=== PATIENT | male | born 1945 | race Caucasian/White ===

== ENCOUNTER 2021-09-10 17:12 | Emergency (ER) | payer OTHER ==
[~2021-09-10] VITALS: Ht 180.3 cm; Wt 81.0 kg
[2021-09-10 20:23] VITALS: BP 133/67
== END 2021-09-10 20:37 | disposition home or self-care (01) ==
LOC: ER 17:12
DX: S52.502A Unspecified fracture of the lower end of left radius, initial encounter for closed fracture (principal); I10 Essential (primary) hypertension; W01.0XXA Fall on same level from slipping, tripping and stumbling without subsequent striking against object, initial encounter; Y93.89 Activity, other specified; Y92.89 Other specified places as the place of occurrence of the external cause; Y99.8 Other external cause status
CPT/HCPCS: 29125; 73090

== ENCOUNTER 2022-04-30 12:33 | Inpatient (IN) | payer OTHER ==
[~2022-04-30] VITALS: Ht 180.3 cm; Wt 84.0 kg
[2022-04-30] MEDS ORDERED: HYDROmorphone HCL 2 MG/ML VL/or syr IM ONE (12:45)
[2022-04-30 13:29] LABS: Albumin 3.2 g/dL (3.4-5.0); Calcium 8.4 mg/dL (8.5-10.1); Potassium 3.3 mmol/L (3.5-5.1)
[2022-04-30 13:32] LABS: BUN/Creatinine Ratio 24.2; Bilirubin, Total 1.2 mg/dL (0.2-1.0); Total Protein 6.4 g/dL (6.4-8.2)
[2022-04-30 13:44] LABS: Basophils # (auto) 0 10 ^3/uL (0-0.2); Eosinophils # (auto) 0 10 ^3/uL (0-0.8); Eosinophils % (auto) 0.1 % (0.0-7.0); Hematocrit 36.9 % (41.0-53.0); Hemoglobin 13.1 g/dL (13.5-17.5); Lymphocytes # (auto) 0.4 10 ^3/uL (0.4-5.4); Lymphocytes % (auto) 6.6 % (10.0-50.0); Mean Corpuscular Hemoglobin 30.1 pg (28.0-32.0); Mean Corpuscular Hgb Conc. 35.4 g/dL (32.0-36.0); Mean Corpuscular Volume 84.9 fL (80.0-100.0); Monocytes # (auto) 0.3 10 ^3/uL (0-1.3); Monocytes % (auto) 4.6 % (0.0-12.0); Neutrophils # (auto) 5.5 10 ^3/uL (1.6-8.6); Neutrophils % (auto) 88.7 % (37.0-80.0); Nucleated Red Blood Cells % 0.1 %; Red Blood Cells 4.34 10^6/uL (4.5-5.90); Red Cell Distribution Width 16.2 % (11.8-14.3); White Blood Cell 6.2 10^3/uL (4.4-10.8)
[2022-04-30] MEDS ORDERED: SODIUM CHLORIDE 0.9% 1,000 ML IV ONE (14:00)
[2022-04-30 14:24] LABS: Urine Bacteria NONE SEEN /hpf (None Seen); Urine Blood Negative /uL (Negative); Urine Mucus FEW (None Seen); Urine Specific Gravity 1.024 (1.001-1.035); Urine WBC 5 /hpf (0 - 3)
[2022-04-30] MEDS: POTASSIUM CHL 20MEQ/100ML 100 ML IV SCH ×2 (14:30→16:28)
[2022-04-30] MEDS ORDERED: SODIUM CHL 3% 500 ML IV ONE ×2 (14:45)
[2022-04-30] MEDS ORDERED: NITROGLYCERIN 0.4 MG SL TAB SL PRN (14:45)
[2022-04-30] MEDS ORDERED: MORPHINE SULFATE INJ 2 MG/ml SYRG IV PRN (14:45)
[2022-04-30] MEDS ORDERED: HYDROcodone-ACET 10/325MG TAB PO PRN (14:45)
[2022-04-30] MEDS ORDERED: hydrALAZINE HCL 20 MG/ML VL IV PRN (14:45)
[2022-04-30] MEDS ORDERED: SODIUM CHL 3% IV ONE ×2 (15:30→23:30)
[2022-04-30 17:48] LABS: Protein, Urine 38.2 mg/dL (0.0-11.9)
[2022-04-30 17:49] LABS: Magnesium 1.4 mg/dL (1.6-2.6)
[2022-04-30 17:53] LABS: Phosphorus 2.5 mg/dL (2.5-4.90)
[2022-04-30] MEDS ORDERED: ONDANSETRON HCL 4 MG/2 ML VIAL IV ONE (18:00)
[2022-04-30 19:01] LABS: BUN/Creatinine Ratio 35.1; Calcium 8.2 mg/dL (8.5-10.1); Potassium 3.6 mmol/L (3.5-5.1)
[2022-04-30 22:52] LABS: BUN/Creatinine Ratio 34.5; Calcium 8.4 mg/dL (8.5-10.1); Potassium 3.6 mmol/L (3.5-5.1)
[2022-04-30] MEDS ORDERED: SODIUM CHLORIDE 0.9% 1,000 ML IV SCH (23:30)
[2022-05-01 02:51] LABS: BUN/Creatinine Ratio 35.8; Calcium 8.4 mg/dL (8.5-10.1); Potassium 3.2 mmol/L (3.5-5.1)
[2022-05-01] MEDS ORDERED: ONDANSETRON HCL 4 MG/2 ML VIAL IV ONE (04:40)
[2022-05-01] MEDS ORDERED: fentaNYL CITRATE 100 MCG/2 ML VL IV ONE (04:40)
[2022-05-01] MEDS ORDERED: ADENOSINE 6 MG/2 ML INJ IV ONE ×3 (04:41→06:15)
[2022-05-01] MEDS ORDERED: MIDAZOLAM HCL 5 MG/ML-1ML VIAL ONE (04:58)
[2022-05-01] MEDS ORDERED: HEPARIN SODIUM (PORCINE) 5000 UNITS/ML 1ML VIAL ONE (04:59)
[2022-05-01] MEDS ORDERED: dilTIAZem 25 MG/5 ML VIAL IV ONE ×3 (05:18→06:15)
[2022-05-01] MEDS ORDERED: dilTIAZem 125mg/125ml BAG KIT 125 ML IV ONE (05:24)
[2022-05-01] MEDS ORDERED: dilTIAZem 125mg/125ml BAG KIT 100 ML IV SCH (06:00)
[2022-05-01 06:08] LABS: Basophils # (auto) 0 10 ^3/uL (0-0.2); Basophils % (auto) 0.2 % (0.0-2.0); Eosinophils # (auto) 0 10 ^3/uL (0-0.8); Eosinophils % (auto) 0.1 % (0.0-7.0); Hematocrit 32.8 % (41.0-53.0); Hemoglobin 11.5 g/dL (13.5-17.5); Lymphocytes # (auto) 0.3 10 ^3/uL (0.4-5.4); Lymphocytes % (auto) 3.4 % (10.0-50.0); Mean Corpuscular Hemoglobin 30.3 pg (28.0-32.0); Mean Corpuscular Hgb Conc. 35.2 g/dL (32.0-36.0); Monocytes # (auto) 0.5 10 ^3/uL (0-1.3); Monocytes % (auto) 5.5 % (0.0-12.0); Neutrophils # (auto) 7.5 10 ^3/uL (1.6-8.6); Neutrophils % (auto) 90.8 % (37.0-80.0); Nucleated Red Blood Cells % 0.1 %; Red Blood Cells 3.81 10^6/uL (4.5-5.90); Red Cell Distribution Width 15.8 % (11.8-14.3); White Blood Cell 8.3 10^3/uL (4.4-10.8)
[2022-05-01] MEDS ORDERED: HEPARIN SODIUM (PORCINE) 5000 UNITS/ML 1ML VIAL IV ONE (06:15)
[2022-05-01] MEDS ORDERED: MIDAZOLAM HCL 5 MG/ML-1ML VIAL IV ONE (06:15)
[2022-05-01] MEDS ORDERED: POTASSIUM CHL 20MEQ/100ML 100 ML IV ONE (06:15)
[2022-05-01] MEDS ORDERED: POTASSIUM CHL 20 Meq TABLET PO ONE (06:15)
[2022-05-01 06:16] LABS: Calcium 7.8 mg/dL (8.5-10.1)
[2022-05-01 06:18] LABS: BUN/Creatinine Ratio 40.5; Potassium 2.7 mmol/L (3.5-5.1)
[2022-05-01] MEDS ORDERED: AMIODARONE HCL 150 MG in D5W 5% 100 ML IV ONE ×2 (06:45→08:45)
[2022-05-01] MEDS ORDERED: AMIODARONE HCL (50 MG/ ML) 3 ML VIAL IV ONE (06:51)
[2022-05-01] MEDS ORDERED: AMIODARONE 450mg/250ml AE 250 ML IV SCH ×2 (07:00→13:00)
[2022-05-01] MEDS ORDERED: MAGNESIUM SULF 50% 40 MEQ/10 ML VL IV PRN (08:15)
[2022-05-01] MEDS ORDERED: ONDANSETRON HCL 4 MG/2 ML VIAL IV PRN (08:30)
[2022-05-01] MEDS ORDERED: SODIUM CHLORIDE 0.9% 1,000 ML IV SCH (08:45)
[2022-05-01] MEDS ORDERED: SOD CHL 0.9%/ KCL 40MEQ 1,000 ML IV SCH (10:00)
[2022-05-01 10:28] LABS: Calcium 7.8 mg/dL (8.5-10.1); Potassium 3.2 mmol/L (3.5-5.1)
[2022-05-01 10:30] LABS: BUN/Creatinine Ratio 37.5
[2022-05-01] MEDS ORDERED: AMIODARONE HCL 200 MG TAB PO ONE (11:15)
[2022-05-01] MEDS: ENOXAPARIN SOD 80 MG/0.8ML SYRINGE SC SCH ×2 (11:47→22:55)
[2022-05-01] MEDS ORDERED: AMIO200T4 PO (13:44)
[2022-05-01] MEDS ORDERED: APIX5TAB PO (13:44)
[2022-05-01] MEDS: AMIODARONE HCL 200 MG TAB PO SCH ×2 (14:15→22:54)
[2022-05-01 15:19] LABS: Calcium 7.7 mg/dL (8.5-10.1); Potassium 3.6 mmol/L (3.5-5.1)
[2022-05-01 15:21] LABS: BUN/Creatinine Ratio 26.9
[2022-05-01] MEDS ORDERED: PROCHLORPERAZINE EDISYLATE 5 MG/ML 2ML VIAL IV PRN (15:45)
[2022-05-01] MEDS: SOD CHL 0.9%/ KCL 40MEQ 1,000 ML IV SCH ×2 (16:27→20:27)
[2022-05-01 19:09] LABS: BUN/Creatinine Ratio 28.6; Calcium 7.6 mg/dL (8.5-10.1); Potassium 3.7 mmol/L (3.5-5.1)
[2022-05-01] MEDS ORDERED: AMIODARONE HCL 200 MG TAB PO SCH (22:00)
[2022-05-01 22:28] VITALS: BP 146/90
[2022-05-01] MEDS ORDERED: LISI40TA11 PO (22:52)
[2022-05-01] MEDS ORDERED: ATEN50TA19 PO (22:52)
[2022-05-01 23:56] LABS: BUN/Creatinine Ratio 27.5; Potassium 4.1 mmol/L (3.5-5.1)
[2022-05-02] MEDS ORDERED: DIGOXIN (250MCG/ML) 2 ML AMPULE ONE (04:53)
[2022-05-02 05:00] VITALS: BP 119/66
[2022-05-02] MEDS ORDERED: DIGOXIN (250MCG/ML) 2 ML AMPULE IV ONE (05:00)
[2022-05-02] MEDS ORDERED: CARVEDILOL 3.125 MG TAB PO ONE (05:45)
[2022-05-02] MEDS ORDERED: dilTIAZem 25 MG/5 ML VIAL IV ONE (06:45)
[2022-05-02] MEDS ORDERED: AMIODARONE HCL 150 MG in D5W 5% 100 ML IV ONE ×2 (07:30→08:00)
[2022-05-02 08:00] VITALS: BP 120/83
[2022-05-02] MEDS: SOD CHL 0.9%/ KCL 40MEQ 1,000 ML IV SCH ×2 (08:00→15:05)
[2022-05-02] MEDS ORDERED: AMIODARONE 450mg/250ml AE 250 ML IV SCH (08:15)
[2022-05-02 08:35] VITALS: BP 131/80
[2022-05-02] MEDS: AMIODARONE HCL 200 MG TAB PO SCH ×2 (09:21→22:31)
[2022-05-02] MEDS: ENOXAPARIN SOD 80 MG/0.8ML SYRINGE SC SCH ×2 (09:22→22:27)
[2022-05-02] MEDS: CARVEDILOL 3.125 MG TAB PO SCH ×2 (09:22→22:31)
[2022-05-02 11:57] LABS: BUN/Creatinine Ratio 29.8 (10.0-20.0); Calcium 7.9 mg/dL (8.5-10.1); Potassium 4.5 mmol/L (3.5-5.1)
[2022-05-02 13:19] VITALS: BP 15/90
[2022-05-02] MEDS: AMIODARONE 450mg/250ml AE 250 ML IV SCH (15:05)
[2022-05-02 17:20] VITALS: BP 150/83
[2022-05-02 22:18] VITALS: BP 145/70
[2022-05-03] MEDS ORDERED: AMIODARONE HCL 200 MG TAB PO ONE
[2022-05-03] MEDS: AMIODARONE 450mg/250ml AE 250 ML IV SCH (02:16)
[2022-05-03 04:39] VITALS: BP 131/75
[2022-05-03 08:00] VITALS: BP 124/90
[2022-05-03 09:06] VITALS: BP 124/90
[2022-05-03] MEDS: AMIODARONE HCL 200 MG TAB PO SCH (09:39)
[2022-05-03] MEDS: CARVEDILOL 3.125 MG TAB PO SCH (09:40)
[2022-05-03] MEDS: ENOXAPARIN SOD 80 MG/0.8ML SYRINGE SC SCH (09:40)
[2022-05-03 12:32] VITALS: BP 127/81
== END 2022-05-03 13:11 | disposition home health service (06) | DRG 641 ==
LOC: ER 12:33 → TELE 14:33 → TELE-CENTR 05-01 22:10
PROVIDERS: ADMIT Internal Medicine; ATTEND Internal Medicine
DX: E87.1 Hypo-osmolality and hyponatremia (principal); I47.1 Supraventricular tachycardia; C20 Malignant neoplasm of rectum; E86.0 Dehydration; E87.6 Hypokalemia; Z20.822 Contact with and (suspected) exposure to COVID-19; R19.7 Diarrhea, unspecified; I10 Essential (primary) hypertension; I48.91 Unspecified atrial fibrillation; Z85.048 Personal history of other malignant neoplasm of rectum, rectosigmoid junction, and anus; Z92.21 Personal history of antineoplastic chemotherapy
CPT/HCPCS: 36415; 74176; 80048; 80053; 81001; 82570; 83690; 83735; 83935; 83970; 84100; 84156; 84300; 85025; 87426; 93005; 93306; 96361; 96372; 96374; 99291; G0378; J0153; J2250; J2405; J3480; J7060

== ENCOUNTER 2022-10-24 08:03 | Emergency (ER) | payer OTHER ==
[~2022-10-24] VITALS: Ht 180.3 cm; Wt 81.8 kg
[~2022-10-24 08:03] MED LIST: AMIO200T13 PO; APIX5TAB PO; ATEN50TA19 PO; LISI40TA16 PO
[2022-10-24 08:40] LABS: Basophils # (auto) 0 10 ^3/uL (0-0.2); Basophils % (auto) 0.3 % (0.0-2.0); Eosinophils # (auto) 0 10 ^3/uL (0-0.8); Eosinophils % (auto) 0.7 % (0.0-7.0); Hematocrit 29.6 % (41.0-53.0); Hemoglobin 9.2 g/dL (13.5-17.5); Lymphocytes # (auto) 0.4 10 ^3/uL (0.4-5.4); Lymphocytes % (auto) 11.5 % (10.0-50.0); Mean Corpuscular Hemoglobin 27.2 pg (28.0-32.0); Mean Corpuscular Hgb Conc. 31.2 g/dL (32.0-36.0); Mean Corpuscular Volume 87.1 fL (80.0-100.0); Monocytes # (auto) 0.4 10 ^3/uL (0-1.3); Monocytes % (auto) 10.3 % (0.0-12.0); Neutrophils # (auto) 2.7 10 ^3/uL (1.6-8.6); Neutrophils % (auto) 77.2 % (37.0-80.0); Nucleated Red Blood Cells % 0.1 %; Red Cell Distribution Width 16.1 % (11.8-14.3); White Blood Cell 3.5 10^3/uL (4.4-10.8)
[2022-10-24 08:56] LABS: Alanine Aminotransferase 14 U/L (7-40); Albumin 3.6 g/dL (3.2-4.8); Alkaline Phosphatase 75 U/L (46-116); Anion Gap 7.5 (5-15); Aspartate Aminotransferase 16 U/L (13-40); BUN/Creatinine Ratio 15.1 (10.0-20.0); Bilirubin, Total 0.5 mg/dL (0.2-1.0); Blood Urea Nitrogen 11 mg/dL (9-23); Calcium 8.6 mg/dL (8.5-10.1); Carbon Dioxide 24.5 mmol/L (20-30); Chloride 110 mmol/L (98-107); Glucose 119 mg/dL (74-106); Potassium 3.6 mmol/L (3.5-5.1); Sodium 142 mmol/L (136-145)
[2022-10-24 08:57] LABS: Total Protein 5.5 g/dL (5.7-8.2)
[2022-10-24 09:01] LABS: INR 1.14 (0.9-1.15); Partial Thromboplastin Time 31.9 SEC (24.5-34.5); Prothrombin Time 11.9 sec (9.3-11.8)
[2022-10-24 11:06] LABS: Urine Bacteria NONE SEEN /hpf (None Seen); Urine Blood Negative /uL (Negative); Urine Clarity Clear (Clear); Urine Color Yellow (Yellow); Urine Hyaline Cast FEW /lpf (0 - 2); Urine Mucus FEW (None Seen); Urine Protein, UAD TRACE (Negative); Urine Specific Gravity 1.024 (1.001-1.035); Urine Urobilinogen Normal (Negative); Urine WBC 2 /hpf (0 - 3)
[2022-10-24] MEDS ORDERED: metroNIDAZOLE 500 MG TAB PO ONE (12:30)
[2022-10-24] MEDS ORDERED: SODIUM CHLORIDE 0.9% 1,000 ML IV ONE ×2 (12:30)
[2022-10-24] MEDS ORDERED: CIPROFLOXACIN HCL 500 MG TAB PO ONE (12:30)
[2022-10-24 13:34] LABS: INR 1.09 (0.9-1.15); Partial Thromboplastin Time 31.6 SEC (24.5-34.5); Prothrombin Time 11.4 sec (9.3-11.8)
[2022-10-24] MEDS ORDERED: FERR325T20 PO ×2 (14:31→14:32)
[2022-10-24] MEDS ORDERED: CIPR-173 PO (14:36)
[2022-10-24] MEDS ORDERED: MET500T PO (14:36)
[2022-10-24 15:39] VITALS: BP 129/94; PULSE 88; RESP 16; TEMP 98.1; O2SAT 97
== END 2022-10-24 15:42 | disposition home or self-care (01) ==
LOC: ER 08:03
DX: K62.5 Hemorrhage of anus and rectum (principal); I10 Essential (primary) hypertension; Z85.048 Personal history of other malignant neoplasm of rectum, rectosigmoid junction, and anus; Z79.899 Other long term (current) drug therapy
CPT/HCPCS: 36415; 71045; 74176; 80053; 81001; 82962; 84484; 85025; 85610; 85730; 96360; 96361; 99284; J7030

== ENCOUNTER 2023-09-13 07:55 | Emergency (ER) | payer OTHER ==
[~2023-09-13] VITALS: Ht 180.3 cm; Wt 76.0 kg
[~2023-09-13 07:55] MED LIST changes: +CIPR-173 PO; +FERR325T20 PO; +MET500T PO
[2023-09-13 08:15] VITALS: PULSE 84; RESP 19; O2SAT 96
[2023-09-13] MEDS: ONDANSETRON HCL 4 MG/2 ML VIAL IV ONE (08:48)
[2023-09-13 08:52] VITALS: TEMP 98.7
[2023-09-13 08:56] LABS: Basophils # (auto) 0 10 ^3/uL (0-0.2); Basophils % (auto) 0.3 % (0.0-2.0); Eosinophils # (auto) 0 10 ^3/uL (0-0.8); Eosinophils % (auto) 0.6 % (0.0-7.0); Hematocrit 42.7 % (41.0-53.0); Hemoglobin 14.5 g/dL (13.5-17.5); Lymphocytes # (auto) 0.8 10 ^3/uL (0.4-5.4); Lymphocytes % (auto) 11.3 % (10.0-50.0); Mean Corpuscular Hemoglobin 29.6 pg (28.0-32.0); Mean Corpuscular Hgb Conc. 33.9 g/dL (32.0-36.0); Mean Corpuscular Volume 87.3 fL (80.0-100.0); Monocytes # (auto) 0.4 10 ^3/uL (0-1.3); Monocytes % (auto) 5.6 % (0.0-12.0); Neutrophils # (auto) 5.9 10 ^3/uL (1.6-8.6); Neutrophils % (auto) 82.2 % (37.0-80.0); Nucleated Red Blood Cells % 0.1 %; Red Blood Cells 4.89 10^6/uL (4.5-5.90); Red Cell Distribution Width 15.4 % (11.8-14.3); White Blood Cell 7.1 10^3/uL (4.4-10.8)
[2023-09-13 09:16] LABS: Alanine Aminotransferase 69 U/L (7-40); Albumin 4.5 g/dL (3.2-4.8); Alkaline Phosphatase 78 U/L (46-116); Anion Gap 9 (5-15); Aspartate Aminotransferase 39 U/L (13-40); Blood Urea Nitrogen 12 mg/dL (9-23); Calcium 9.7 mg/dL (8.7-10.4); Carbon Dioxide 25 mmol/L (20-30); Chloride 104 mmol/L (98-107); Glucose 157 mg/dL (74-106); Lipase 36 U/L (12-53); Sodium 138 mmol/L (136-145); Total Protein 6.8 g/dL (5.7-8.2)
[2023-09-13 09:22] LABS: Urine Bacteria None Seen /hpf (None Seen); Urine WBC None Seen /hpf (0 - 3)
[2023-09-13 09:27] LABS: Urine Blood Negative /uL (Negative); Urine Clarity Clear (Clear); Urine Color Light-Yellow (Yellow); Urine Protein, UAD Negative (Negative); Urine Specific Gravity 1.012 (1.001-1.035); Urine Urobilinogen Normal (Negative); Urine pH 6.5 (5.0-9.0)
[2023-09-13] MEDS: SODIUM CHLORIDE 0.9% 1,000 ML IV ONE (10:30)
[2023-09-13 10:55] VITALS: PULSE 90; RESP 18; O2SAT 95
[2023-09-13] MEDS: POLYETHYLENE GLYCOL 17 GM PWDR PO ONE (11:40)
[2023-09-13] MEDS ORDERED: POLY335015 PO (13:14)
[2023-09-13 13:24] VITALS: BP 129/88; PULSE 98; RESP 18; O2SAT 94
== END 2023-09-13 14:16 | disposition home or self-care (01) ==
LOC: ER 07:55
DX: C80.1 Malignant (primary) neoplasm, unspecified (principal); R10.84 Generalized abdominal pain; I48.91 Unspecified atrial fibrillation; I10 Essential (primary) hypertension; Z79.899 Other long term (current) drug therapy; Z98.890 Other specified postprocedural states
CPT/HCPCS: 36415; 74176; 80053; 81001; 83690; 85025; 96361; 96374; 99285; J2405

== ENCOUNTER 2024-07-09 10:42 | Emergency (ER) | payer OTHER ==
[~2024-07-09] VITALS: Ht 180.3 cm; Wt 75.0 kg
[~2024-07-09 10:42] MED LIST changes: +POLY335015 PO
--- NOTE | 2024-07-09 11:17 | ED.PDOC ---
HPI Comments 79 y/o M, with PMHx of rectal cancer, A-Fib, and CHF presents to the ED for CC of urinary retention. Patient reports, that he has been experiencing urinary retention onset, Monday (07/05/24). Patient relays, that he has been able to void however has, scant urine production. Patient denies fever, testicular swelling, or abdominal pain. No other symptoms or modifying factors present at this time. Time Seen by MD: 11:00 Primary Care Provider: YOHANA Reviewed notes: Nurses Notes, Medications, Allergies Allergies: Coded Allergies: NO KNOWN ALLERGIES (Unverified , 09/10/21) Home Meds Active Scripts Polyethylene Glycol 3350 (Miralax) 17 Gm Pow, 17 GM PO BID PRN MDD 34gm for 30 Days, #30 POW 3 Refills Take twice a day as needed for constipation. Prov:GRISELDA ALANIZ DO 09/13/23 Ciprofloxacin Hcl (Cipro) 500 Mg Tab, 1 TAB PO BID for 7 Days, #14 TAB Prov:NINO WASHBURN MD 10/24/22 Metronidazole (Metronidazole) 500 Mg Tab, 500 MG PO TID for 7 Days, #21 TAB Prov:NINO WASHBURN MD 10/24/22 Ferrous Sulfate (Ferosul) 325 Mg Tab, 1 TAB PO BID, #60 TAB Prov:NINO WASHBURN MD 10/24/22 Amiodarone HCl (Amiodarone HCl) 200 Mg Tab, 200 MG PO BID, #60 TAB 2 Refills Prov:BRISA PETERSON MD 05/01/22 Apixaban Base (ELIQUIS) 5 Mg Tab, 5 MG PO BID for 30 Days, #60 TAB Prov:BRISA PETERSON MD 05/01/22 Reported Medications Lisinopril (Lisinopril) 40 Mg Tab, 1 TAB PO DAILY 05/01/22 Atenolol & Chlorthalidone (Atenolol/Chlorthalidone 50-25 mg) 1 Tab Tab, 1 TAB PO DAILY 05/01/22 Information Source: Patient, Relative (Child) Mode of Arrival: Wheelchair Severity: Moderate Inability to void: Moderate Timing: Days Duration: Since onset Prehospital treatment: None Onset: Spontaneous Symptoms: Inability to void History of: None Penile discharge: None Modifying factors: None associated signs and symptoms: Inability to Void Past Medical History PAST MEDICAL HISTORY: AFIB, Cancer, HTN Surgical History: Denies all surgeries Family History Family History: Reviewed,noncontributory to illness, No family hx of Cancer, No family hx of Heart jessica, No family hx of HTN, No family hx ofKidney jessica, No family hx of Liver jessica, No family hx of Lung jessica, No family hx of Stroke, Family hx of DM Social History Smoker: Non-Smoker Alcohol: Denies ETOH Use Drugs: Denies Drug Use Lives In: Home Constitutional: denies: chills, diaphoresis, fatigue, fever, malaise, sweats, weakness, others EENTM: denies: blurred vision, double vision, ear bleeding, ear discharge, ear drainage, ear pain, ear ringing, eye pain, eye redness, hearing loss, mouth pain, mouth swelling, nasal discharge, nose bleeding, nose congestion, nose pain, photophobia, tearing, throat pain, throat swelling, voice changes, others Respiratory: denies: cough, hemoptysis, orthopnea, SOB at rest, shortness of breath, SOB with excertion, stridor, wheezing, others Cardiovascular: denies: chest pain, dizzy spells, diaphoresis, Dyspnea on exertion, edema, irregular heart beat, left arm pain, lightheadedness, palpitati ons, PND, syncope, others Gastrointestinal: denies: abdomen distended, abdominal pain, blood streaked bowels, constipated, diarrhea, dysphagia, difficulty swallowing, hematemesis, melena, nausea, poor appetite, poor fluid intake, rectal bleeding, rectal pain, vomiting, others Genitourinary: reports: others (scant urine); denies: burning, dysuria, flank pain, frequency, hematuria, incontinence, penile discharge, penile sore, pain, testicle pain, testicle swelling, urgency Neurological: denies: dizziness, fainting, headache, left sided numbness, left sided weakness, numbness, paresthesia, pre-existing deficit, right sided numbness, right sided weakness, seizure, speech problems, tingling, tremors, weakness, others Musculoskeletal: denies: back pain, gout, joint pain, joint swelling, muscle pain, muscle stiffness, neck pain, others Integumetry: denies: bruises, change in color, change in hair/nails, dryness, laceration, lesions, lumps, rash, wounds, others Allergic/Immunocompromised: denies: Difficulty Healing, Frequent Infections, Hives, Itching, others Hematologic/Lymphatic: denies: anemia, blood clots, easy bleeding, easy bruising, swollen glands, others Endocrine: denies: excessive hunger, excessive sweating, excessive thirst, excessive urination, flushing, intolerance to cold, intolerance to heat, unexplained weight gain, unexplained weight loss, others Psychiatric: denies: anxiety, bipolar disorder, depression, hopeless, panic disorder, schizophrenia, sleepless, suicidal, others All Other Systems: Reviewed and Negative Physical Exam General Appearance: Moderate Distress HEENT: Normal ENT Inspection, Pharynx Normal, TMs Normal Neck: Full Range of Motion, Non-Tender, Normal, Normal Inspection Respiratory: Chest Non-Tender, Lungs Clear, No Accessory Muscle Use, No Respiratory Distress, Normal Breath Sounds Cardiovascular: No Edema, No JVD, No Murmur, No Gallop, Normal Peripheral Pulses, Regular Rate/Rhythm Breast Exam: Deferred Gastrointestinal: No Organomegaly, Non Tender, No Pulsatile Mass, Normal Bowel Sounds, Soft Genitalia: Deferred Pelvic: Deferred Rectal: Deferred Extremities: No calf tenderness, No pedal edema Musculoskeletal : Apperance: Normal Neurologic: Alert, No Motor Deficits, No Sensory Deficits Cerebellar Function: NOT DONE Reflexes: NOT DONE Skin: Pallor Peripheral Pulses: 3+ Radial (R), 3+ Radial (L) Lymphatic: No Adenopathy Was a procedure done? Was a procedure done?: No Differential Diagnosis Kidney stone (Female): Musculoskeletal pain, Urinary obstruction, Urolithiasis Urinary Problem (Male): Bladder Obstruction, Prostatitis, Urinary Retention, Urolithiasis X-Ray, Labs, Meds, VS Vital Signs Date Time Temp Pulse Resp B/P (MAP) Pulse Ox O2 Delivery O2 Flow Rate FiO2 07/09/24 11:52 97.6 81 20 112/67 (82) 100 97.6 Lab Test 07/09/24 13:10 07/09/24 11:45 Range/Units Urine Color Colorless Yellow Urine Clarity Clear Clear Urine pH 6.5 5.0-9.0 Urine Specific [place] 1.005 1.001-1.035 Urine Protein Negative Negative Urine Ketones Negative Negative Urine Blood Negative Negative /uL Urine Nitrite Negative Negative Urine Bilirubin Negative Negative Urine Urobilinogen Normal Negative mg/dL Urine Leukocyte Esterase 3+ Negative /uL Urine RBC 2 0 - 3 /hpf Urine WBC Clumps Present None Seen /hpf Urine Microscopic WBC 146 H 0-3 /HPF Urine Squamous Epithelial Cells Few <5 /hpf Urine Bacteria Few H None Seen /hpf Urine Glucose Normal Normal mg/dL White Blood Count 3.0 L 4.4-10.8 10^3/uL Red Blood Count 4.20 L 4.5-5.90 10^6/uL Hemoglobin 11.7 L 13.5-17.5 g/dL Hematocrit 35.5 L 41.0-53.0 % Mean Corpuscular Volume 84.4 80.0-100.0 fL Mean Corpuscular Hemoglobin 27.9 L 28.0-32.0 pg Mean Corpuscular Hemoglobin Concent 33.1 32.0-36.0 g/dL Red Cell Distribution Width 14.5 H 11.8-14.3 % Platelet Count 220 140-450 10^3/uL Mean Platelet Volume 7.4 6.9-10.8 fL Neutrophils (%) (Auto) 79.9 37.0-80.0 % Lymphocytes (%) (Auto) 16.9 10.0-50.0 % Monocytes (%) (Auto) 2.7 0.0-12.0 % Eosinophils (%) (Auto) 0.4 0.0-7.0 % Basophils (%) (Auto) 0.1 0.0-2.0 % Neutrophils # (Auto) 2.4 1.6-8.6 10 ^3/uL Lymphocytes # (Auto) 0.5 0.4-5.4 10 ^3/uL Monocytes # (Auto) 0.1 0-1.3 10 ^3/uL Eosinophils # (Auto) 0 0-0.8 10 ^3/uL Basophils # (Auto) 0 0-0.2 10 ^3/uL Nucleated Red Blood Cells 0.1 % Sodium Level 135 L 136-145 mmol/L Potassium Level 4.6 3.5-5.1 mmol/L Chloride Level 101 98-107 mmol/L Carbon Dioxide Level 26 20-31 mmol/L Anion Gap 8 5-15 Blood Urea Nitrogen 12 9-23 mg/dL Creatinine 0.89 0.700-1.30 mg/dL Glomerular Filtration Rate Calc 88 >90 mL/min BUN/Creatinine Ratio 13.5 10.0-20.0 Serum Glucose 176 H 74-106 mg/dL Calcium Level 9.7 8.7-10.4 mg/dL Patient alert. Complaining of urinary symptoms. Blood sugar elevated. Vitals stable. Urinalysis shows UTI. Patient does have history of cancer for which he is being treated. Continue monitoring. Time of 1ST Reevaluation: 11:30 Reevaluation 1ST: Unchanged Patient Education/Counseling: Diagnosis, Treatment Family Education/Counseling: Diagnosis, Treatment Departure 1 Departure Time of Disposition: 14:04 Impression: Primary Impression: Sepsis due to urinary tract infection Disposition: ADMITTED INPATIENT Admit to: Med Surg Condition: Guarded e-Prescriptions Sulfamethoxazole W/Trimethopri (Bactrim Ds Tablet) 1 Tab Tb 1 TAB PO BID for 10 Days, #20 TAB Prov: JUAN JOSE LAU MD 07/09/24 Critical Care Note Critical Care Time?: No Stability Stability form required: No Heart Score Heart Score: Heart Score Response (Comments) Value History N/A 0 EKG N/A 0 Age N/A 0 Risk Factors N/A 0 Troponin N/A 0 Total 0 I personally scribed for JUAN JOSE LAU MD ([email or web address]) on 07/09/24 at 11:17. Electronically submitted by Zoey Mcclain ([email or web address]). JUAN JOSE LAU MD July 09, 2024 11:17
[2024-07-09 12:04] LABS: Basophils # (auto) 0 10 ^3/uL (0-0.2); Basophils % (auto) 0.1 % (0.0-2.0); Eosinophils # (auto) 0 10 ^3/uL (0-0.8); Eosinophils % (auto) 0.4 % (0.0-7.0); Hematocrit 35.5 % (41.0-53.0); Hemoglobin 11.7 g/dL (13.5-17.5); Lymphocytes # (auto) 0.5 10 ^3/uL (0.4-5.4); Lymphocytes % (auto) 16.9 % (10.0-50.0); Mean Corpuscular Hemoglobin 27.9 pg (28.0-32.0); Mean Corpuscular Hgb Conc. 33.1 g/dL (32.0-36.0); Mean Corpuscular Volume 84.4 fL (80.0-100.0); Monocytes # (auto) 0.1 10 ^3/uL (0-1.3); Monocytes % (auto) 2.7 % (0.0-12.0); Neutrophils # (auto) 2.4 10 ^3/uL (1.6-8.6); Neutrophils % (auto) 79.9 % (37.0-80.0); Nucleated Red Blood Cells % 0.1 %; Platelet Count (auto) 220 10^3/uL (140-450); Red Cell Distribution Width 14.5 % (11.8-14.3)
[2024-07-09 12:09] LABS: Anion Gap 8 (5-15); Carbon Dioxide 26 mmol/L (20-31); Chloride 101 mmol/L (98-107); Potassium 4.6 mmol/L (3.5-5.1)
[2024-07-09 12:10] LABS: Calcium 9.7 mg/dL (8.7-10.4)
[2024-07-09 12:11] LABS: Sodium 135 mmol/L (136-145)
[2024-07-09 12:15] LABS: BUN/Creatinine Ratio 13.5 (10.0-20.0); Blood Urea Nitrogen 12 mg/dL (9-23)
[2024-07-09 12:17] LABS: Glucose 176 mg/dL (74-106)
[2024-07-09 13:49] LABS: Urine Bacteria FEW /hpf (None Seen); Urine Blood Negative /uL (Negative); Urine Clarity Clear (Clear); Urine Color Colorless (Yellow); Urine Protein, UAD Negative (Negative); Urine Specific Gravity 1.005 (1.001-1.035); Urine Squamous Epithelial Cell FEW /hpf (<5); Urine Urobilinogen Normal (Negative); Urine WBC 146 /HPF (0-3); Urine WBC Clumps PRESENT /hpf (None Seen); Urine pH 6.5 (5.0-9.0)
[2024-07-09] MEDS ORDERED: BACDST PO (14:46)
--- NOTE | 2024-07-09 14:52 | DVHDS2 ---
New Physician D'charge PN Admitting Diagnosis Admitting Diagnosis uti Discharge Diagnosis uti Operations or Procedures none Reason(s) For Hospitalization Surgery Hospital Course 79 M who comes to ER c/o of dribbling urine. He states he is able to void but not as much as before. He has a hx of rectal cancer for which he received chemo and radiation therapy and currently is following with oncology outpt. On arrival to ER he was afebrile and vital signs were stable with no evidence of sepsis indices. His chem panel revealed a nml Cr and and GFR of 88. He had a UA done with showed 3+ leukocyte esterase and few bacteria suggestive of uti. Given that his renal function is preserved he will be discharged home on PO Abx for UTI and will have outpt follow up with his PCP via [facility]. Spoke to ER provider and all parties in agreement with plan. Treatment Plan Discharge Condition of Discharge Good Disposition Home Discharge Instructions Diet: Cardiac 2g Na,low cholest Activity: No Restrictions, As Tolerated Medications: see med sheet Follow Up Care Follow Up/Referral: pcp Discharge Statement: "Patient was advised to return to the ER or call 911 if any headaches, dizziness, shortness of breath, chest pain, abdominal pain, bleeding, fevers, or worsening of medical condition. Patient was counseled about treatment plan, medications, possible side effects, patientverbalized understanding. All questions were answered to the best of my ability. This discharge took greater then 30 minutes in planning, reviewing documentation, counseling the patient, and discussing with other team members." BRISA PETERSON MD July 09, 2024 14:52
[2024-07-09 16:30] VITALS: BP 99/68; PULSE 66; RESP 18; TEMP 97.9; O2SAT 96
[2024-07-09] MEDS: SULFAMETHOX W/TRIMETH(800/160MG) DS TAB PO ONE (16:35)
== END 2024-07-09 17:01 | disposition home or self-care (01) ==
LOC: ER 10:42
DX: A41.9 Sepsis, unspecified organism (principal); N39.0 Urinary tract infection, site not specified; I48.91 Unspecified atrial fibrillation; I11.0 Hypertensive heart disease with heart failure; I50.9 Heart failure, unspecified; Z79.01 Long term (current) use of anticoagulants; Z79.899 Other long term (current) drug therapy
CPT/HCPCS: 36415; 80048; 81001; 85025

== ENCOUNTER 2024-07-25 14:24 | Inpatient (IN) | payer OTHER ==
[~2024-07-25] VITALS: Ht 182.9 cm; Wt 81.6 kg
[~2024-07-25 14:24] MED LIST changes: +BACDST PO
--- NOTE | 2024-07-25 14:36 | ED.PDOC ---
HPI Comments HPI: This is a 79 year old male BIBA presenting to the ED with chief complaint of generalized weakness and rectal pain. EMS reports that the patient's caregiver has noticed patient has been increasingly weak with associated poor PO intake for the past week. EMS relays that the patient is currently complaining of rectal pain and patient states he is not eating as much as he is unable to hold any food or drink down, vomiting it all. Patient notes that he has been having chronic rectal bleeding for the past 2 years, however, he is on Eliquis for atrial fibrillation. EMS reports that the patient was hypotensive in the 80s systolically and with a heart rate in the 140s. Patient is currently undergoing chemo therapy for rectal cancer. Patient denies any chest pain, SOB, dizziness, fever, chills, diarrhea, or abdominal pain. Initial Vitals BP: HR: RR: O2: Temp: Past Medical History: HTN, A-Fib, CHF, Rectal Cancer with chemo for one month Past Surgical History: Denies Social History: Denies ETOH, smoking, and drug use. Medications: Lasix, Decadron Allergies: NKDA HPI: Poor Historian. REVIEW OF SYSTEMS: CONSTITUTIONAL: Denies acute: fever, diaphoresis, chills, HEAD: Denies acute: headache, photophobia Eyes: Denies acute: Double vision, vision loss, eye pain, eye discharge. EARS: Denies acute: tinnitus, hearing loss, ear discharge, ear pain, THROAT: Denies acute: sore throat, swelling, difficulty swallowing , pain with swallowing, change in voice. NECK: Denies acute: neck pain, neck swelling, stiff neck. HEART: Denies acute : chest pain, palpitations, LUNGS: Denies acute: SOB, wheezing, cough, hemoptysis ABDOMEN: Denies acute: abdominal pain, diarrhea, melena , hematemesis, SKIN: Denies acute: rash, redness, lesions, itchiness. EXTREMITIES: Denies acute: calf pain, numbness, tingling, weakness, denies pain in extremity. Denies acute: Low back pain. Neuro: Denies acute: focal neurological deficit, motor or sensory focal neurological deficit, tremors, seizure like activity, confusion, dizziness, change in mental status, loss of bowel or bladder function, cauda equina like symptoms. : Denies acute: dysuria, hematuria, flank pain, increase in urinary frequency. PSYCH: Denies acute: hallucination, suicidal ideation, homicidal ideation. PHYSICAL EXAM: General: --[id number]------acute distress, awake and alert. Head: normocephalic, atraumatic. Neck: supple, trachea is midline, no swelling. Throat: Normal phonation. Eyes:, no erythema, no purulent discharge, no proptosis, no icterus. Heart: Irregular rate and rhythm consistent with atrial fibrillation with RVR. no significant murmur appreciated. Lungs: no apparent respiratory distress, Able to speak in full sentences. No wheezing, no rhonchi, no crackles. No stridors Clear to auscultation bilaterally. Abdomen: non tender to palpation, non distended, soft, no guarding, no rebound, + bowel sounds. Neuro: Awake, Alert, oriented to name, self, situation, follows commands GCS=15. Speech is normal. Skin: no petechia, no purpura, no cyanosis, slightly-pale, slightly jaundice. Lower extremities: --trace bilateral - Pitting edema no deformity, no focal swelling, no calf TTP. Makes eye contact. moves all four extremities. Face: no apparent facial droop. ED COURSE: Chief Complaint: Rectal Pain Time Seen by MD: 14:33 Primary Care Provider: YOHANA Lazcano Notes: Medications, Allergies Allergies: Coded Allergies: NO KNOWN ALLERGIES (Unverified , 09/10/21) Home Meds Active Scripts Metoprolol Tartrate (Lopressor) 25 Mg Tb, 25 MG PO BID for 30 Days, #60 TAB 2 Refills Prov:BRISA PETERSON MD 08/01/24 Polyethylene Glycol 3350 (Miralax) 17 Gm Pow, 17 GM PO BID PRN MDD 34gm for 30 Days, #30 POW 3 Refills Take twice a day as needed for constipation. Prov:GRISELDA ALANIZ DO 09/13/23 Ferrous Sulfate (Ferosul) 325 Mg Tab, 1 TAB PO BID, #60 TAB Prov:NINO WASHBURN MD 10/24/22 Amiodarone HCl (Amiodarone HCl) 200 Mg Tab, 200 MG PO BID, #60 TAB 2 Refills Prov:BRISA PETERSON MD 05/01/22 Apixaban Base (ELIQUIS) 5 Mg Tab, 5 MG PO BID for 30 Days, #60 TAB Prov:BRISA PETERSON MD 05/01/22 Reported Medications Lisinopril (Lisinopril) 40 Mg Tab, 1 TAB PO DAILY 05/01/22 Discontinued Reported Medications Atenolol & Chlorthalidone (Atenolol/Chlorthalidone 50-25 mg) 1 Tab Tab, 1 TAB PO DAILY 05/01/22 Discontinued Scripts Sulfamethoxazole W/Trimethopri (Bactrim Ds Tablet) 1 Tab Tb, 1 TAB PO BID for 10 Days, #20 TAB Prov:JUAN JOSE LAU MD 07/09/24 Ciprofloxacin Hcl (Cipro) 500 Mg Tab, 1 TAB PO BID for 7 Days, #14 TAB Prov:NINO WASHBURN MD 10/24/22 Metronidazole (Metronidazole) 500 Mg Tab, 500 MG PO TID for 7 Days, #21 TAB Prov:NINO WASHBURN MD 10/24/22 Information Source: Patient, Emergency Med Personnel Mode of Arrival: EMS Was a procedure done? Was a procedure done?: No CP Differential Dx Differential Diagnosis: A-fib, A-Flutter, Angina, Anxiety / Panic Attack, Digo lobo Toxicity, Electrolyte Disorder, Heart Failure, Hyperthyroidism, Hyperventilation, Hypoxia, MAT, RI, PAC's, Pulmonary Embolus, PVC's, Renal Failure, Sinus Tachycardia, Torsades De Pointes, Ventricular Dysrhythmia, V-Fib, V-Tach, WPW Differential Diagnosis: Other (As far as generalized weakness. Includes but not limited to thyroid disease, encephalopathy, electrolyte abnormality, sepsis, infection, intracranial pathology, drug adverse effects, arrhythmia, kidney insufficiency, ACS, CVA, malignancy, anemia) X-Ray, Labs, Meds, VS Vital Signs Date Time Temp Pulse Resp B/P (MAP) Pulse Ox O2 Delivery O2 Flow Rate FiO2 07/25/24 17:00 168 28 92/60 (71) 100 07/25/24 16:55 101/68 07/25/24 16:00 147 07/25/24 16:00 164 26 84/64 (71) 99 07/25/24 14:50 170 20 99 Room Air* 0 21 07/25/24 14:50 98.7 170 20 86/53 (64) 99 98.7 07/25/24 14:34 98.7 168 16 103/68 (80) 100 98.7 07/25/24 14:25 177 Lab Test 07/25/24 16:54 07/25/24 16:20 07/25/24 15:43 07/25/24 14:53 Range/Units Hemoglobin 9.5 L 10.4 L 13.5-17.5 g/dL Hematocrit 28.1 L 30.8 L 41.0-53.0 % Lactic Acid Level 2.1 *H 2.7 *H 0.4-2.0 mmol/L Urine Color Yellow Yellow Urine Clarity Clear Clear Urine pH 6.0 5.0-9.0 Urine Specific [place] 1.024 1.001-1.035 Urine Protein Trace H Negative Urine Ketones Negative Negative Urine Blood Negative Negative /uL Urine Nitrite Negative Negative Urine Bilirubin Negative Negative Urine Urobilinogen 4 H Negative mg/dL Urine Leukocyte Esterase Negative Negative /uL Urine RBC 1 0 - 3 /hpf Urine Microscopic WBC 2 0-3 /HPF Urine Squamous Epithelial Cells Few <5 /hpf Urine Bacteria None seen None Seen /hpf Urine Glucose Normal Normal mg/dL Troponin I High Sensitivity 17 15 </=54 ng/L White Blood Count 4.2 L 4.4-10.8 10^3/uL Red Blood Count 3.80 L 4.5-5.90 10^6/uL Mean Corpuscular Volume 81.0 80.0-100.0 fL Mean Corpuscular Hemoglobin 27.4 L 28.0-32.0 pg Mean Corpuscular Hemoglobin Concent 33.9 32.0-36.0 g/dL Red Cell Distribution Width 14.2 11.8-14.3 % Platelet Count 124 L 140-450 10^3/uL Mean Platelet Volume 8.2 6.9-10.8 fL Neutrophils (%) (Auto) 86.8 H 37.0-80.0 % Lymphocytes (%) (Auto) 5.1 L 10.0-50.0 % Monocytes (%) (Auto) 7.8 0.0-12.0 % Eosinophils (%) (Auto) 0.1 0.0-7.0 % Basophils (%) (Auto) 0.2 0.0-2.0 % Neutrophils # (Auto) 3.6 1.6-8.6 10 ^3/uL Lymphocytes # (Auto) 0.2 L 0.4-5.4 10 ^3/uL Monocytes # (Auto) 0.3 0-1.3 10 ^3/uL Eosinophils # (Auto) 0 0-0.8 10 ^3/uL Basophils # (Auto) 0 0-0.2 10 ^3/uL Nucleated Red Blood Cells 0.1 % Prothrombin Time 15.0 H 9.3-11.8 sec Prothrombin Time INR 1.47 H 0.9-1.15 Activated Partial Thromboplast Time 30.3 24.5-34.5 SEC Sodium Level 134 L 136-145 mmol/L Potassium Level 4.3 3.5-5.1 mmol/L Chloride Level 102 98-107 mmol/L Carbon Dioxide Level 20 20-31 mmol/L Anion Gap 12 5-15 Blood Urea Nitrogen 22 9-23 mg/dL Creatinine 0.87 0.700-1.30 mg/dL Glomerular Filtration Rate Calc 88 >90 mL/min BUN/Creatinine Ratio 25.3 H 10.0-20.0 Serum Glucose 138 H 74-106 mg/dL Calcium Level 8.9 8.7-10.4 mg/dL Magnesium Level 1.8 1.6-2.6 mg/dL Total Bilirubin 1.0 0.2-1.0 mg/dL Aspartate Amino Transferase (AST) 36 H 0-34 U/L Alanine Aminotransferase (ALT) 44 H 7-40 U/L Alkaline Phosphatase 143 H 46-116 U/L B-Type Natriuretic Peptide 533.04 0-100 pg/mL Total Protein 5.3 L 5.7-8.2 g/dL Albumin 3.3 3.2-4.8 g/dL Lipase 26 12-53 U/L Microbiology Date/Time Source Procedure Growth Status 07/25/24 14:53 Blood Blood Culture - Final Staphylococcus aureus Complete 07/25/24 14:40 Blood Blood Culture - Final Staphylococcus aureus Complete Time of 1ST Reevaluation: 15:33 Reevaluation 1ST: Unchanged Time of 2ND Reevaluation: 16:12 (The case was discussed with the admitting team (HPI, physical exam, labs and diagnostic tests that were available at the time of disposition, ED course, treatment plan) on the phone. They agreed to admit the patient to their service and assume care of this patient from this point forward. --- Shae) Reevaluation 2ND: Improved Patient Education/Counseling: Diagnosis, Treatment Family Education/Counseling: No Family Present Comments Patient presented with the above HPI.--generalized weakness----workup was initiated. patient was found with the above mentioned diagnosis. the following medications were ordered: please refer to order lists of meds and tests obtained by myself Dr. Elizabeth. Patient ED course and VS have been stabilized. Patient has been reassessed in the ED and remained in a stable condition. Pertinent incidental findings were discussed with the patient and/or family. Patient/family voices understanding and is agreeable with plan. Patient has been observed in the ED adequate length of time to insure improvement/stability. Escalation of care considered: Consideration of escalation to observation or admission Controlled patient has atrial fibrillation with RVR came and patient was given amiodarone which is his home medication. It was noted that he is not on any calcium channel blockers. Patient continued to be in AFib. Patient was given fluids and antibiotics. A see orders of diltiazem but that was not ordered by myself. Patient was ADMITTED to the medicine team for further evaluation and treatment of their presentation. All the reports of any imaging studies that were ordered by myself were reviewed by myself. Departure 1 Departure Time of Disposition: 14:42 Impression: Primary Impression: Atrial fibrillation with RVR Additional Impressions: Hypotension Dehydration Rectal pain Anemia Thrombocytopenia Sepsis Disposition: ADMITTED INPATIENT Admit to: ICU Condition: Critical e-Prescriptions Metoprolol Tartrate (Lopressor) 25 Mg Tb 25 MG PO BID for 30 Days, #60 TAB 2 Refills Prov: BRISA PETERSON MD 08/01/24 Discharged With: Self Critical Care Note Critical Care Time?: Yes Heart Score Heart Score: Heart Score Response (Comments) Value History Highly Suspicious 2 EKG Repolarization Disturb 1 Age >65 2 Risk Factors >3 or Hx ASHD 2 Troponin Normal limit 0 Total 7 I personally scribed for JACQUELINE ELIZABETH DO ([email or web address]) on 07/25/24 at 14:36. Electronically submitted by Abdulaziz Garay ([email or web address]). I personally scribed for JACQUELINE ELIZABETH DO ([email or web address]) on 07/25/24 at 14:47. Electronically submitted by Abdulaziz Garay ([email or web address]). JACQUELINE ELIZABETH DO Jul 25, 2024 14:36
[2024-07-25 14:50] VITALS: PULSE 170; RESP 20; O2SAT 99
[2024-07-25] MEDS: SODIUM CHLORIDE 0.9% 1,000 ML IV ONE ×2 (14:54→15:48)
--- NOTE | 2024-07-25 14:57 | DVH ---
EXAM: XY CHEST PORTABLE HISTORY: weak, tachy, n/v COMPARISON: XY CHEST PORTABLE on DOS: 10/24/22 TECHNIQUE: Portable upright AP view of the chest was performed. FINDINGS: Right chest port-A-Cath is re-identified. No pneumothorax, consolidative infiltrates, or pulmonary ed kavin. The heart is not enlarged. The aortic arch is calcific. There is at least 1 old right rib fractu re. IMPRESSION: No acute intrathoracic process.
[2024-07-25] MEDS: ONDANSETRON HCL 4 MG/2 ML VIAL IV ONE (15:10)
[2024-07-25 15:14] LABS: Basophils # (auto) 0 10 ^3/uL (0-0.2); Basophils % (auto) 0.2 % (0.0-2.0); Eosinophils # (auto) 0 10 ^3/uL (0-0.8); Eosinophils % (auto) 0.1 % (0.0-7.0); Hematocrit 30.8 % (41.0-53.0); Hemoglobin 10.4 g/dL (13.5-17.5); Lymphocytes # (auto) 0.2 10 ^3/uL (0.4-5.4); Lymphocytes % (auto) 5.1 % (10.0-50.0); Mean Corpuscular Hemoglobin 27.4 pg (28.0-32.0); Mean Corpuscular Hgb Conc. 33.9 g/dL (32.0-36.0); Monocytes # (auto) 0.3 10 ^3/uL (0-1.3); Monocytes % (auto) 7.8 % (0.0-12.0); Neutrophils # (auto) 3.6 10 ^3/uL (1.6-8.6); Neutrophils % (auto) 86.8 % (37.0-80.0); Nucleated Red Blood Cells % 0.1 %; Platelet Count (auto) 124 10^3/uL (140-450); Red Cell Distribution Width 14.2 % (11.8-14.3); White Blood Cell 4.2 10^3/uL (4.4-10.8)
[2024-07-25] MEDS: AMIODARONE BOLUS KIT 100 ML IV ONE (15:22)
[2024-07-25 15:34] LABS: INR 1.47 (0.9-1.15); Partial Thromboplastin Time 30.3 SEC (24.5-34.5)
[2024-07-25] MEDS: AMIODARONE 360mg/200mL PREMIX 200 ML IV ONE ×2 (15:34→21:33)
[2024-07-25 15:35] LABS: Albumin 3.3 g/dL (3.2-4.8); Anion Gap 12 (5-15); BUN/Creatinine Ratio 25.3 (10.0-20.0); Blood Urea Nitrogen 22 mg/dL (9-23); Calcium 8.9 mg/dL (8.7-10.4); Chloride 102 mmol/L (98-107); Magnesium 1.8 mg/dL (1.6-2.6); Potassium 4.3 mmol/L (3.5-5.1)
[2024-07-25 15:38] LABS: Alanine Aminotransferase 44 U/L (7-40); Alkaline Phosphatase 143 U/L (46-116); Aspartate Aminotransferase 36 U/L (0-34); Carbon Dioxide 20 mmol/L (20-31); Glucose 138 mg/dL (74-106); Sodium 134 mmol/L (136-145); Total Protein 5.3 g/dL (5.7-8.2)
[2024-07-25 15:41] LABS: Lactic Acid w/Reflex 2.7 mmol/L (0.4-2.0)
[2024-07-25 15:49] LABS: Lipase 26 U/L (12-53)
[2024-07-25 16:31] LABS: Urine Bacteria None Seen /hpf (None Seen)
[2024-07-25 16:46] LABS: Urine Blood Negative /uL (Negative); Urine Clarity Clear (Clear); Urine Color Yellow (Yellow); Urine Protein, UAD TRACE (Negative); Urine Specific Gravity 1.024 (1.001-1.035); Urine Squamous Epithelial Cell FEW /hpf (<5); Urine Urobilinogen 4 mg/dL (Negative); Urine WBC 2 /HPF (0-3)
[2024-07-25] MEDS: FUROSEMIDE 20 MG/2 ML VIAL IV ONE (16:55)
[2024-07-25 17:03] LABS: Hematocrit 28.1 % (41.0-53.0); Hemoglobin 9.5 g/dL (13.5-17.5)
[2024-07-25] MEDS ORDERED: ACETAMINOPHEN 325 MG TAB PO PRN (17:30)
[2024-07-25] MEDS ORDERED: NITROGLYCERIN 0.4 MG SL TAB SL PRN (17:30)
[2024-07-25] MEDS ORDERED: MORPHINE SULFATE INJ 2 MG/ml SYRG IV PRN (17:30)
[2024-07-25] MEDS: cefTRIAXone 1GM/50ML D5W 50 ML IV ONE (17:51)
[2024-07-25] MEDS: METOPROLOL TARTRATE 1MG/1ML-5ML VIAL IV ONE (18:35)
[2024-07-25 19:30] VITALS: PULSE 140; RESP 28; O2SAT 97
[2024-07-25] MEDS: HYDROcodone-ACET 5/325MG TAB PO PRN (20:05)
--- NOTE | 2024-07-25 20:34 | ECG ---
[facility] Test Date: 2024-07-25 Test Time: 14:25:38 Pat Name: CHUNG NUÑEZ Department: ED Room: [address] [place] [address] Gender: M Ranger Aide: DOREEN : 1945 Requested By: JACQUELINE ELIZABETH Order Number: [id number] Reading MD: John Borges Measurements Intervals [place] Rate: 177 P: 59 NH: 118 QRS: -43 QRSD: 129 T: 112 QT: 287 QTc: 493 Interpretive Statements Wide-QRS tachycardia RBBB and LAFB Electronically Signed On 07-26-2024 9:29:21 PDT by John Borges Please click the below link to view image of tracing.
--- NOTE | 2024-07-25 22:23 | DVH ---
Exam: CT CT AB PEL WO CON-NO ORAL OR IV History: weak/tachy, n/v, rectal cancer and pain Comparison Study: CT CT AB PEL WO CON-NO ORAL OR IV on DOS: 09/13/23, CT CT AB PEL WO CON-NO ORAL OR I V on DOS: 10/24/22, CT CT AB PEL WO CON-NO ORAL OR IV on DOS: 04/30/22 TECHNIQUE: Multidetector CT of the abdomen was performed from lung bases to pubic symphysis. Imaging was performed without IV contrast. Axial, coronal and sagittal multiplanar reformats were obtained fr om the axial data set by the technologist. Radiation Dose Information: CT Dose: CTDI volume is 15.42 mGy. Dose-length product is 920.8 mGy*cm FINDINGS: Evaluation of solid organs is limited due to lack of intravenous contrast use. Findings: Lung Bases: No acute or significant lung base finding. Normal heart size. No pleural or pericardial effusion. Liver: The liver is normal in size. No focal lesions. Gallbladder and Biliary Tree: Unremarkable Spleen: Unremarkable Pancreas: The pancreas is grossly normal in appearance. Adrenal Glands: Unremarkable Kidneys: Bilateral renal cysts. Largest on the right is 7.5 cm. Largest on the left is 6.5 cm Bladder: Grossly unremarkable for degree of distention. Bowel: The stomach is grossly normal in appearance. Hiatal hernia Small bowel and colon are normal in caliber and distribution. 11 mm thickening of the r wall of the rectum. The appendix is not visualiz ed; however, no secondary findings of acute appendicitis identified. Ascites: Absent Lymphadenopathy: No mesenteric, retroperitoneal or periportal lymphadenopathy. Abdominal Wall and Mesentery: Unremarkable. Vasculature: The visualized abdominal aorta is normal in size and caliber. Evaluation of abdominal a nd pelvic vessels is limited due to lack of intravenous contrast. Pelvic Organs: Unremarkable Musculoskeletal: No aggressive focal bony lesions, acute fractures or dislocation. Multiple compresse d lumbar vertebra stable and unchanged from 04/30/2022. Mild increased compression of L3. Soft tissues: Unremarkable IMPRESSION: 1. Irregular thickened wall of the rectum measuring 10-11 mm. 2. Multiple compressed lumbar vertebra slight increase in the compression of L3 2022. 3. Multiple bilateral renal cysts. 4. Small right pleural effusion. 5. If hepatic metastasis is of clinical concern recommend repeat study with IV contrast. Radiation optimization: All CT scans at this facility use at least one of these dose optimization mary hniques: automated exposure control mA and/or kV adjustment per patient size (includes targeted exam s where dose is matched to clinical indication) or iterative reconstruction.
[2024-07-25] MEDS: PHENYLEPHRINE IV 250 ML IV SCH (22:45)
[2024-07-25 23:30] VITALS: BP 104/77; PULSE 145; RESP 25; O2SAT 100
[2024-07-25 23:45] VITALS: BP 89/70; PULSE 144; RESP 22; O2SAT 94
[2024-07-26] VITALS (87 sets, daily range): BP systolic 88–135; BP diastolic 49–104; PULSE 94–159; RESP 16–38; TEMP 97.5–98.8; O2SAT 87–100
--- NOTE | 2024-07-26 00:01 | DVHINCON2 ---
Date of service: Jul 25, 2024 Referring Physician Shae Reason for Consultation A-fib RVR History of Present Illness This is a 79 year old male with a PMH of HTN, A-Fib, CHF, Rectal Cancer on chemo who was brought in by ambulance with complaints of generalized weakness and rectal pain. EMS reports that the patient's caregiver has noticed patient has been increasingly weak with associated poor PO intake for the past week. Patient states he is not eating as much as he is unable to hold any food or drinks down, vomiting it all. Patient notes that he has been having chronic rectal bleeding for the past 2 years, however, he is on Eliquis for atrial fibrillation. EMS reports that the patient was hypotensive on scene in the 80s systolically and with a heart rate in the 140s. EKG shows A Fib with RVR at 177. WBC 4.2, HGB 9.5, HCT 28.1, LA 2.7 > 2.1. Chest x-ray showed NAD. CT abd/pel shows irregular thickened wall of the rectum measuring 10-11 mm. Multiple compressed lumbar vertebra slight increase in the compression of L3 2022. Multiple bilateral renal cysts. Small right pleural effusion. Patient was admitted to the hospital ICU. I am asked to consult on this patient. Family History: Patient reports no known family medical history. Allergies: Coded Allergies: NO KNOWN ALLERGIES (Unverified , 09/10/21) Home Meds Active Scripts Sulfamethoxazole W/Trimethopri (Bactrim Ds Tablet) 1 Tab Tb, 1 TAB PO BID for 10 Days, #20 TAB Prov:JUAN JOSE LAU MD 07/09/24 Polyethylene Glycol 3350 (Miralax) 17 Gm Pow, 17 GM PO BID PRN MDD 34gm for 30 Days, #30 POW 3 Refills Take twice a day as needed for constipation. Prov:GRISELDA ALANIZ DO 09/13/23 Ciprofloxacin Hcl (Cipro) 500 Mg Tab, 1 TAB PO BID for 7 Days, #14 TAB Prov:NINO WASHBURN MD 10/24/22 Metronidazole (Metronidazole) 500 Mg Tab, 500 MG PO TID for 7 Days, #21 TAB Prov:NINO WASHBURN MD 10/24/22 Ferrous Sulfate (Ferosul) 325 Mg Tab, 1 TAB PO BID, #60 TAB Prov:NINO WASHBURN MD 10/24/22 Amiodarone HCl (Amiodarone HCl) 200 Mg Tab, 200 MG PO BID, #60 TAB 2 Refills Prov:BRISA PETERSON MD 05/01/22 Apixaban Base (ELIQUIS) 5 Mg Tab, 5 MG PO BID for 30 Days, #60 TAB Prov:BRISA PETERSON MD 05/01/22 Reported Medications Lisinopril (Lisinopril) 40 Mg Tab, 1 TAB PO DAILY 05/01/22 Atenolol & Chlorthalidone (Atenolol/Chlorthalidone 50-25 mg) 1 Tab Tab, 1 TAB PO DAILY 05/01/22 Current Medications Current Medications Medications (Trade) Dose Ordered Sig/Vincent Route PRN Reason Start Time Stop Time Status Last Admin Acetaminophen (Tylenol Tablet) 325 mg Q4HP PRN PO MILD PAIN (1-3 PAIN SCALE) 07/25/24 17:30 Acetaminophen/ Hydrocodone Bitart ([place] 5/325MG Tab) 1 tab Q4HP PRN PO MODERATE PAIN (4-6 PAIN SCALE) 07/25/24 17:30 Temazepam (Restoril) 15 mg QHSP PRN PO FOR INSOMNIA 07/25/24 17:30 Enoxaparin Sodium (Lovenox) 40 mg DAILY SC 07/26/24 10:00 Nitroglycerin (Ntrostat Sublingual) 0.4 mg Q5MINP PRN SL FOR CHEST PAIN 07/25/24 17:30 Morphine Sulfate 2 mg Q30M PRN IV FOR CHEST PAIN 07/25/24 17:30 Review of Systems CONSTITUTIONAL: Denies acute: fever, diaphoresis, chills, HEAD: Denies acute: headache, photophobia Eyes: Denies acute: Double vision, vision loss, eye pain, eye discharge. EARS: Denies acute: tinnitus, hearing loss, ear discharge, ear pain, THROAT: Denies acute: sore throat, swelling, difficulty swallowing , pain with swallowing, change in voice. NECK: Denies acute: neck pain, neck swelling, stiff neck. HEART: Denies acute : chest pain, palpitations, LUNGS: Denies acute: SOB, wheezing, cough, hemoptysis ABDOMEN: Denies acute: abdominal pain, diarrhea, melena , hematemesis, SKIN: Denies acute: rash, redness, lesions, itchiness. EXTREMITIES: Denies acute: calf pain, numbness, tingling, weakness, denies pain in extremity. Denies acute: Low back pain. Neuro: Denies acute: focal neurological deficit, motor or sensory focal ne urological deficit, tremors, seizure like activity, confusion, dizziness, change in mental status, loss of bowel or bladder function, cauda equina like symptoms. : Denies acute: dysuria, hematuria, flank pain, increase in urinary frequency. PSYCH: Denies acute: hallucination, suicidal ideation, homicidal ideation. Vital Signs Vital Signs Date Time Temp Pulse Resp B/P (MAP) Pulse Ox O2 Delivery O2 Flow Rate FiO2 07/25/24 16:55 101/68 07/25/24 14:50 170 20 99 Room Air* 0 21 07/25/24 14:50 98.7 98.7 Physical Exam GENERAL: Alert and oriented x 3. No acute distress. EYES: PERRL, EOMI. Anicteric. HENT: Moist mucous membranes. LUNGS: Clear to auscultation bilaterally. CARDIOVASCULAR: Regular rate and rhythm. ABDOMEN: Soft, nontender and nondistended. EXTREMITIES: No edema. NEUROLOGIC: No focal neurological deficits. SKIN: Warm, dry. Labs/Diagnostic Data Labs Test 07/25/24 16:54 07/25/24 16:20 07/25/24 15:43 07/25/24 14:53 Range/Units Hemoglobin 9.5 L 13.5-17.5 g/dL Hematocrit 28.1 L 41.0-53.0 % Lactic Acid Level 2.1 *H 0.4-2.0 mmol/L Urine Color Yellow Yellow Urine Clarity Clear Clear Urine pH 6.0 5.0-9.0 Urine Specific [place] 1.024 1.001-1.035 Urine Protein Trace H Negative Urine Ketones Negative Negative Urine Blood Negative Negative /uL Urine Nitrite Negative Negative Urine Bilirubin Negative Negative Urine Urobilinogen 4 H Negative mg/dL Urine Leukocyte Esterase Negative Negative /uL Urine RBC 1 0 - 3 /hpf Urine Microscopic WBC 2 0-3 /HPF Urine Squamous Epithelial Cells Few <5 /hpf Urine Bacteria None seen None Seen /hpf Urine Glucose Normal Normal mg/dL Troponin I High Sensitivity 17 </=54 ng/L White Blood Count 4.2 L 4.4-10.8 10^3/uL Red Blood Count 3.80 L 4.5-5.90 10^6/uL Mean Corpuscular Volume 81.0 80.0-100.0 fL Mean Corpuscular Hemoglobin 27.4 L 28.0-32.0 pg Mean Corpuscular Hemoglobin Concent 33.9 32.0-36.0 g/dL Red Cell Distribution Width 14.2 11.8-14.3 % Platelet Count 124 L 140-450 10^3/uL Mean Platelet Volume 8.2 6.9-10.8 fL Neutrophils (%) (Auto) 86.8 H 37.0-80.0 % Lymphocytes (%) (Auto) 5.1 L 10.0-50.0 % Monocytes (%) (Auto) 7.8 0.0-12.0 % Eosinophils (%) (Auto) 0.1 0.0-7.0 % Basophils (%) (Auto) 0.2 0.0-2.0 % Neutrophils # (Auto) 3.6 1.6-8.6 10 ^3/uL Lymphocytes # (Auto) 0.2 L 0.4-5.4 10 ^3/uL Monocytes # (Auto) 0.3 0-1.3 10 ^3/uL Eosinophils # (Auto) 0 0-0.8 10 ^3/uL Basophils # (Auto) 0 0-0.2 10 ^3/uL Nucleated Red Blood Cells 0.1 % Prothrombin Time 15.0 H 9.3-11.8 sec Prothrombin Time INR 1.47 H 0.9-1.15 Activated Partial Thromboplast Time 30.3 24.5-34.5 SEC Sodium Level 134 L 136-145 mmol/L Potassium Level 4.3 3.5-5.1 mmol/L Chloride Level 102 98-107 mmol/L Carbon Dioxide Level 20 20-31 mmol/L Anion Gap 12 5-15 Blood Urea Nitrogen 22 9-23 mg/dL Creatinine 0.87 0.700-1.30 mg/dL Glomerular Filtration Rate Calc 88 >90 mL/min BUN/Creatinine Ratio 25.3 H 10.0-20.0 Serum Glucose 138 H 74-106 mg/dL Calcium Level 8.9 8.7-10.4 mg/dL Magnesium Level 1.8 1.6-2.6 mg/dL Total Bilirubin 1.0 0.2-1.0 mg/dL Aspartate Amino Transferase (AST) 36 H 0-34 U/L Alanine Aminotransferase (ALT) 44 H 7-40 U/L Alkaline Phosphatase 143 H 46-116 U/L B-Type Natriuretic Peptide 533.04 0-100 pg/mL Total Protein 5.3 L 5.7-8.2 g/dL Albumin 3.3 3.2-4.8 g/dL Lipase 26 12-53 U/L Assessment Atrial fibrillation with RVR. Hypotension. Dehydration. Rectal pain. Anemia. Thrombocytopenia. CHF. Rectal Cancer on chemo. Plan/Recommendation I agree with your ongoing assessment and care of plan. Echocardiogram. Morphine and [place] for pain management. Digoxin. Diltiazem. DVT prophylactics. Nitro SL. Additional plan as per the hospital course. Critical care time of 90 minutes provided to include time spent evaluation of patient at bedside, when appropriate patient/family education for diagnosis, treatment plan, review of pertinent medical information and discussion of care with specialty providers and PCP. Plan discussed with: Patient JT ANGELES MD Jul 25, 2024 18:09
[2024-07-26] MEDS: DIGOXIN (250MCG/ML) 2 ML AMPULE IV ONE ×2 (00:57→15:10)
[2024-07-26] MEDS: SODIUM CHLORIDE 0.9% 500 ML IV ONE ×3 (01:08→15:48)
[2024-07-26] MEDS: dilTIAZem 25 MG/5 ML VIAL IV ONE (01:08)
[2024-07-26] MEDS ORDERED: dilTIAZem 125mg/125ml BAG KIT 125 ML IV SCH (01:45)
[2024-07-26] MEDS: dilTIAZem 125mg/125ml BAG KIT 125 ML IV SCH (02:47)
[2024-07-26 04:15] LABS: Basophils # (auto) 0 10 ^3/uL (0-0.2); Eosinophils # (auto) 0 10 ^3/uL (0-0.8); Eosinophils % (auto) 0.4 % (0.0-7.0); Hematocrit 28.8 % (41.0-53.0); Hemoglobin 9.8 g/dL (13.5-17.5); Lymphocytes # (auto) 0.4 10 ^3/uL (0.4-5.4); Lymphocytes % (auto) 8.3 % (10.0-50.0); Mean Corpuscular Hemoglobin 27.4 pg (28.0-32.0); Mean Corpuscular Volume 80.6 fL (80.0-100.0); Monocytes # (auto) 0.4 10 ^3/uL (0-1.3); Monocytes % (auto) 9.1 % (0.0-12.0); Neutrophils # (auto) 3.6 10 ^3/uL (1.6-8.6); Neutrophils % (auto) 82.2 % (37.0-80.0); Nucleated Red Blood Cells % 0.1 %; Platelet Count (auto) 128 10^3/uL (140-450); Red Blood Cells 3.58 10^6/uL (4.5-5.90); Red Cell Distribution Width 14.3 % (11.8-14.3); White Blood Cell 4.4 10^3/uL (4.4-10.8)
[2024-07-26 04:30] LABS: Anion Gap 11 (5-15); Aspartate Aminotransferase 31 U/L (0-34); BUN/Creatinine Ratio 27.1 (10.0-20.0); Bilirubin, Total 0.5 mg/dL (0.2-1.0); Blood Urea Nitrogen 19 mg/dL (9-23); Chloride 101 mmol/L (98-107); Potassium 3.6 mmol/L (3.5-5.1)
[2024-07-26 04:34] LABS: Alanine Aminotransferase 43 U/L (7-40); Alkaline Phosphatase 130 U/L (46-116); Calcium 7.8 mg/dL (8.7-10.4); Carbon Dioxide 19 mmol/L (20-31); Glucose 121 mg/dL (74-106); Sodium 131 mmol/L (136-145)
[2024-07-26] MEDS: DIGOXIN (250MCG/ML) 2 ML AMPULE IV SCH (06:49)
--- NOTE | 2024-07-26 08:51 | DVHHP2 ---
Admitting Diagnosis: Atrial Fibrillation with RVR History of Present Illness HPI Patient is a 79-year-old male with past medical history of rectal cancer on chemotherapy, atrial fibrillation who presented with complaints of generalized weakness, decreased p.o. intake and rectal bleeding. Patient presented to the ER noted to be in atrial fibrillation RVR to the rate of 150s. Patient was started on amiodarone drip. Initial laboratory findings did not reveal leukocytosis, renal failure. Patient was admitted for further medical management. Home Meds Active Scripts Sulfamethoxazole W/Trimethopri (Bactrim Ds Tablet) 1 Tab Tb, 1 TAB PO BID for 10 Days, #20 TAB Prov:JUAN JOSE LAU MD 07/09/24 Polyethylene Glycol 3350 (Miralax) 17 Gm Pow, 17 GM PO BID PRN MDD 34gm for 30 Days, #30 POW 3 Refills Take twice a day as needed for constipation. Prov:GRISELDA ALANIZ DO 09/13/23 Ciprofloxacin Hcl (Cipro) 500 Mg Tab, 1 TAB PO BID for 7 Days, #14 TAB Prov:NINO WASHBURN MD 10/24/22 Metronidazole (Metronidazole) 500 Mg Tab, 500 MG PO TID for 7 Days, #21 TAB Prov:NINO WASHBURN MD 10/24/22 Ferrous Sulfate (Ferosul) 325 Mg Tab, 1 TAB PO BID, #60 TAB Prov:NINO WASHBURN MD 10/24/22 Amiodarone HCl (Amiodarone HCl) 200 Mg Tab, 200 MG PO BID, #60 TAB 2 Refills Prov:BRISA PETERSON MD 05/01/22 Apixaban Base (ELIQUIS) 5 Mg Tab, 5 MG PO BID for 30 Days, #60 TAB Prov:BRISA PETERSON MD 05/01/22 Reported Medications Lisinopril (Lisinopril) 40 Mg Tab, 1 TAB PO DAILY 05/01/22 Atenolol & Chlorthalidone (Atenolol/Chlorthalidone 50-25 mg) 1 Tab Tab, 1 TAB PO DAILY 05/01/22 Past Medical History Cardiac: AFIB GI: GI bleed Hemotology/Oncology: Cancer Patient Family History: Patient reports no known family medical history. Review of Systems Constitutional: Weakness Cardiovascular: Palpitations H&P Exam Vital Signs Vital Signs Date Time Temp Pulse Resp B/P (MAP) Pulse Ox O2 Delivery O2 Flow Rate FiO2 07/26/24 06:49 138 07/26/24 06:45 23 119/60 (79) 07/26/24 06:30 99 07/26/24 06:00 Room Air* 0 21 07/26/24 04:00 98.8 98.8 General Appeara: Well developed Pulmonary/Respiratory: Normal inspection, Normal breath sounds Cardiovascular/Chest: Normal inspection Neuro/Mental St: Alert Labs/Xrays Labs Test 07/26/24 03:47 07/25/24 18:19 07/25/24 16:54 07/25/24 16:20 Range/Units White Blood Count 4.4 4.4-10.8 10^3/uL Red Blood Count 3.58 L 4.5-5.90 10^6/uL Hemoglobin 9.8 L 13.5-17.5 g/dL Hematocrit 28.8 L 41.0-53.0 % Mean Corpuscular Volume 80.6 80.0-100.0 fL Mean Corpuscular Hemoglobin 27.4 L 28.0-32.0 pg Mean Corpuscular Hemoglobin Concent 34.0 32.0-36.0 g/dL Red Cell Distribution Width 14.3 11.8-14.3 % Platelet Count 128 L 140-450 10^3/uL Mean Platelet Volume 8.2 6.9-10.8 fL Neutrophils (%) (Auto) 82.2 H 37.0-80.0 % Lymphocytes (%) (Auto) 8.3 L 10.0-50.0 % Monocytes (%) (Auto) 9.1 0.0-12.0 % Eosinophils (%) (Auto) 0.4 0.0-7.0 % Basophils (%) (Auto) 0.0 0.0-2.0 % Neutrophils # (Auto) 3.6 1.6-8.6 10 ^3/uL Lymphocytes # (Auto) 0.4 0.4-5.4 10 ^3/uL Monocytes # (Auto) 0.4 0-1.3 10 ^3/uL Eosinophils # (Auto) 0 0-0.8 10 ^3/uL Basophils # (Auto) 0 0-0.2 10 ^3/uL Nucleated Red Blood Cells 0.1 % Sodium Level 131 L 136-145 mmol/L Potassium Level 3.6 3.5-5.1 mmol/L Chloride Level 101 98-107 mmol/L Carbon Dioxide Level 19 L 20-31 mmol/L Anion Gap 11 5-15 Blood Urea Nitrogen 19 9-23 mg/dL Creatinine 0.70 0.700-1.30 mg/dL Glomerular Filtration Rate Calc 94 >90 mL/min BUN/Creatinine Ratio 27.1 H 10.0-20.0 Serum Glucose 121 H 74-106 mg/dL Calcium Level 7.8 L 8.7-10.4 mg/dL Total Bilirubin 0.5 0.2-1.0 mg/dL Aspartate Amino Transferase (AST) 31 0-34 U/L Alanine Aminotransferase (ALT) 43 H 7-40 U/L Alkaline Phosphatase 130 H 46-116 U/L Total Protein 5.0 L 5.7-8.2 g/dL Albumin 3.0 L 3.2-4.8 g/dL Troponin I High Sensitivity 14 </=54 ng/L Lactic Acid Level 2.1 *H 0.4-2.0 mmol/L Urine Color Yellow Yellow Urine Clarity Clear Clear Urine pH 6.0 5.0-9.0 Urine Specific [place] 1.024 1.001-1.035 Urine Protein Trace H Negative Urine Ketones Negative Negative Urine Blood Negative Negative /uL Urine Nitrite Negative Negative Urine Bilirubin Negative Negative Urine Urobilinogen 4 H Negative mg/dL Urine Leukocyte Esterase Negative Negative /uL Urine RBC 1 0 - 3 /hpf Urine Microscopic WBC 2 0-3 /HPF Urine Squamous Epithelial Cells Few <5 /hpf Urine Bacteria None seen None Seen /hpf Urine Glucose Normal Normal mg/dL Test 07/25/24 14:53 Range/Units Prothrombin Time 15.0 H 9.3-11.8 sec Prothrombin Time INR 1.47 H 0.9-1.15 Activated Partial Thromboplast Time 30.3 24.5-34.5 SEC Magnesium Level 1.8 1.6-2.6 mg/dL B-Type Natriuretic Peptide 533.04 0-100 pg/mL Lipase 26 12-53 U/L Assessment/Plan Primary Diagnosis 1. Atrial Fibrillation with RVR 2. Rectal Cancer 3. Lower GIB Plan Plan: - Cardiology consulted for atrial fibrillation RVR, Dr. Michele - TTE pending - Amiodarone drip transition to diltiazem - Patient started on digoxin. Patient remains at uncontrolled rate. - Vancomycin started due to blood culture showing gram-positive cocci in clusters. Final speciation pending. Patient unlikely to have sepsis at this time. Possible contamination. Will continue with antibiotics until finalization of cultures. Blood cultures repeated. - Digoxin level pending - GI consulted due to rectal bleeding and rectal pain - Daily CBC and BMP - Full code Plan discussed with: Patient NAGIJORDIGRISELDA Lopez DO Jul 26, 2024 08:51
[2024-07-26] MEDS: ENOXAPARIN SOD 40 MG/0.4 ML SYRINGE SC SCH (09:55)
[2024-07-26] MEDS: MAGNESIUM OXIDE 400 MG TAB PO ONE (11:59)
[2024-07-26] MEDS ORDERED: VANCOMYCIN PER PHARMACY 0 MG IV SCH (12:45)
--- NOTE | 2024-07-26 13:20 | DVHPN2 ---
Progress Note - Dictate Date Seen: Jul 26, 2024 Medical Necessity Reason Pt with a Central, PICC or Fol: No Subjective Patient was seen and evaluated in follow up in the ICU. Patient is complaining of right sided hip pain. HGB 9.8, HCT 28.8, CO2 19, CA 7.8, ALT 43. Prelim blood cultures are growing Gram Positive Cocci in clusters. vital signs Vital Sign Date Time Temp Pulse Resp B/P (MAP) Pulse Ox O2 Delivery O2 Flow Rate FiO2 07/26/24 10:07 109/75 07/26/24 09:54 125 07/26/24 08:30 23 96 07/26/24 08:00 Room Air* 0 21 07/26/24 08:00 98.3 98.3 Total Intake and Output 07/25/24 07/25/24 07/26/24 14:59 22:59 06:59 Intake Total 2249.99 ml 976.66 ml Output Total 500 ml Balance 2249.99 ml 476.66 ml medications Current Medications Medications Dose Ordered Sig/Vincent Route Start Time Stop Time Status Last Admin Dose Admin Acetaminophen 325 mg Q4HP PRN PO 07/25/24 17:30 Acetaminophen/ Hydrocodone Bitart 1 tab Q4HP PRN PO 07/25/24 17:30 07/26/24 10:14 1 TAB Temazepam 15 mg QHSP PRN PO 07/25/24 17:30 Enoxaparin Sodium 40 mg DAILY SC 07/26/24 10:00 07/26/24 09:55 40 MG Nitroglycerin 0.4 mg Q5MINP PRN SL 07/25/24 17:30 Morphine Sulfate 2 mg Q30M PRN IV 07/25/24 17:30 Digoxin 125 mcg DAILY IV 07/26/24 07:00 07/26/24 09:54 125 MCG Phenylephrine HCl 250 ml @ 30 mls/hr Q8H20M IV 07/25/24 22:45 Diltiazem HCl 125 ml @ 5 mls/hr Q24H IV 07/26/24 02:35 07/26/24 10:07 15 MLS/HR objective GENERAL: Alert and oriented x 3. No acute distress. EYES: PERRL, EOMI. Anicteric. HENT: Moist mucous membranes. LUNGS: Clear to auscultation bilaterally. CARDIOVASCULAR: Regular rate and rhythm. ABDOMEN: Soft, nontender and nondistended. EXTREMITIES: No edema. NEUROLOGIC: No focal neurological deficits. SKIN: Warm, dry. laboratory and microbiology Laboratory Tests 07/26/24 03:47 Test 07/26/24 03:47 Range/Units Serum Glucose 121 H 74-106 mg/dL Problem List Atrial fibrillation with RVR. Hypotension. Dehydration. Rectal pain. Anemia. Thrombocytopenia. CHF. Rectal Cancer on chemo. Assessment/Plan Continued all current supportive medical care. Echocardiogram. Morphine and [place] for pain management. Digoxin. Diltiazem. DVT prophylactics. Nitro SL. Additional plan as per the hospital course. Critical care time of 45 minutes provided to include time spent evaluation of patient at bedside, when appropriate patient/family education for diagnosis, treatment plan, review of pertinent medical information and discussion of care with specialty providers and PCP. Plan discussed with: Patient JT ANGELES MD Jul 26, 2024 12:03
[2024-07-26] MEDS: VANCOMYCIN 1.5GM/300ML 300 ML IV ONE (14:11)
--- NOTE | 2024-07-26 16:47 | DVHINCON2 ---
Date of service: Jul 26, [address] Kaufman Reason for Consultation Rectal pain History of Present Illness This is a 79 year old male with a PMH of HTN, A-Fib, CHF, Rectal Cancer on chemo who was brought in by ambulance with complaints of generalized weakness and rectal pain. EMS reports that the patient's caregiver has noticed patient has been increasingly weak with associated poor PO intake for the past week. Patient states he is not eating as much as he is unable to hold any food or drinks down, vomiting it all. Patient notes that he has been having chronic rectal bleeding for the past 2 years, however, he is on Eliquis for atrial fibrillation. EMS reports that the patient was hypotensive on scene in the 80s systolically and with a heart rate in the 140s. EKG shows A Fib with RVR at 177. WBC 4.2, HGB 9.5, HCT 28.1, LA 2.7 > 2.1. Chest x-ray showed NAD. CT abd/pel shows irregular thickened wall of the rectum measuring 10-11 mm. Multiple compressed lumbar vertebra slight increase in the compression of L3 2022. Multiple bilateral renal cysts. Small right pleural effusion. Patient was admitted to the hospital ICU. GI was asked to consult for his rectal pain and history of rectal bleeding. Patient was seen at bedside in ER bed 12. He is resting comfortably and did not have any active nausea vomiting at this time. Patient denied any hematemesis. Patient stated he was diagnosed with rectal cancer about three years ago and he regularly follows up with [facility]. Patient has been on chemotherapy and I believe has completed his chemotherapy around . Patient was supposed to follow up with the surgeon at [facility] to discuss further surgical intervention options and management. However the patient ended up in the hospital because of his weakness. Patient believes he has had two or three colonoscopies during the course of his treatment but could not recall the last colonoscopy date Past Medical History PMH of HTN, A-Fib, CHF, Rectal Cancer on chemo Past Surgical History Left breast lumpectomy Family History: Patient reports no known family medical history. Allergies: Coded Allergies: NO KNOWN ALLERGIES (Unverified , 09/10/21) Home Meds Active Scripts Sulfamethoxazole W/Trimethopri (Bactrim Ds Tablet) 1 Tab Tb, 1 TAB PO BID for 10 Days, #20 TAB Prov:JUAN JOSE LAU MD 07/09/24 Polyethylene Glycol 3350 (Miralax) 17 Gm Pow, 17 GM PO BID PRN MDD 34gm for 30 Days, #30 POW 3 Refills Take twice a day as needed for constipation. Prov:CORBINFRANSISCOI John BUTLER 09/13/23 Ciprofloxacin Hcl (Cipro) 500 Mg Tab, 1 TAB PO BID for 7 Days, #14 TAB Prov:NINO WASHBURN MD 10/24/22 Metronidazole (Metronidazole) 500 Mg Tab, 500 MG PO TID for 7 Days, #21 TAB Prov:NINO WASHBURN MD 10/24/22 Ferrous Sulfate (Ferosul) 325 Mg Tab, 1 TAB PO BID, #60 TAB Prov:NINO WASHBURN MD 10/24/22 Amiodarone HCl (Amiodarone HCl) 200 Mg Tab, 200 MG PO BID, #60 TAB 2 Refills Prov:BRISA PETERSON MD 05/01/22 Apixaban Base (ELIQUIS) 5 Mg Tab, 5 MG PO BID for 30 Days, #60 TAB Prov:BRISA PETERSON MD 05/01/22 Reported Medications Lisinopril (Lisinopril) 40 Mg Tab, 1 TAB PO DAILY 05/01/22 Atenolol & Chlorthalidone (Atenolol/Chlorthalidone 50-25 mg) 1 Tab Tab, 1 TAB PO DAILY 05/01/22 Current Medications Current Medications Medications (Trade) Dose Ordered Sig/Vincent Route PRN Reason Start Time Stop Time Status Last Admin Acetaminophen (Tylenol Tablet) 325 mg Q4HP PRN PO MILD PAIN (1-3 PAIN SCALE) 07/25/24 17:30 Acetaminophen/ Hydrocodone Bitart ([place]leming 5/325MG Tab) 1 tab Q4HP PRN PO MODERATE PAIN (4-6 PAIN SCALE) 07/25/24 17:30 07/26/24 13:59 Temazepam (Restoril) 15 mg QHSP PRN PO FOR INSOMNIA 07/25/24 17:30 Enoxaparin Sodium (Lovenox) 40 mg DAILY SC 07/26/24 10:00 07/26/24 09:55 Nitroglycerin (Ntrostat Sublingual) 0.4 mg Q5MINP PRN SL FOR CHEST PAIN 07/25/24 17:30 Morphine Sulfate 2 mg Q30M PRN IV FOR CHEST PAIN 07/25/24 17:30 Digoxin (Lanoxin Injection) 125 mcg DAILY IV 07/26/24 07:00 07/26/24 09:54 Phenylephrine HCl 250 ml @ 30 mls/hr Q8H20M IV 07/25/24 22:45 Diltiazem HCl 125 ml @ 5 mls/hr Q24H IV 07/26/24 02:35 07/26/24 15:17 DC 07/26/24 10:07 Diltiazem HCl 125 ml @ 5 mls/hr Q24H IV 07/26/24 01:45 07/26/24 02:06 DC Vancomycin HCl 0 ml @ 0 mls/hr UD IV 07/26/24 12:45 UNV Vital Signs Vital Signs Date Time Temp Pulse Resp B/P (MAP) Pulse Ox O2 Delivery O2 Flow Rate FiO2 07/26/24 16:00 97.5 129 19 95/63 (74) 98 97.5 07/26/24 14:00 Room Air* 0 21 Physical Exam GENERAL: Alert and oriented x 3. No acute distress. Appears weak and chronically ill EYES: PERRL, EOMI. Anicteric.Mild pallor LUNGS: Clear to auscultation bilaterally. CARDIOVASCULAR: Irregular rate and rhythm. ABDOMEN: Soft, nontender and nondistended. EXTREMITIES: No edema. NEUROLOGIC: No focal neurological deficits. Labs/Diagnostic Data Labs Test 07/26/24 14:04 07/26/24 03:47 07/25/24 18:19 07/25/24 16:54 Range/Units Digoxin Level 1.09 0.8-2 ng/mL White Blood Count 4.4 4.4-10.8 10^3/uL Red Blood Count 3.58 L 4.5-5.90 10^6/uL Hemoglobin 9.8 L 13.5-17.5 g/dL Hematocrit 28.8 L 41.0-53.0 % Mean Corpuscular Volume 80.6 80.0-100.0 fL Mean Corpuscular Hemoglobin 27.4 L 28.0-32.0 pg Mean Corpuscular Hemoglobin Concent 34.0 32.0-36.0 g/dL Red Cell Distribution Width 14.3 11.8-14.3 % Platelet Count 128 L 140-450 10^3/uL Mean Platelet Volume 8.2 6.9-10.8 fL Neutrophils (%) (Auto) 82.2 H 37.0-80.0 % Lymphocytes (%) (Auto) 8.3 L 10.0-50.0 % Monocytes (%) (Auto) 9.1 0.0-12.0 % Eosinophils (%) (Auto) 0.4 0.0-7.0 % Basophils (%) (Auto) 0.0 0.0-2.0 % Neutrophils # (Auto) 3.6 1.6-8.6 10 ^3/uL Lymphocytes # (Auto) 0.4 0.4-5.4 10 ^3/uL Monocytes # (Auto) 0.4 0-1.3 10 ^3/uL Eosinophils # (Auto) 0 0-0.8 10 ^3/uL Basophils # (Auto) 0 0-0.2 10 ^3/uL Nucleated Red Blood Cells 0.1 % Sodium Level 131 L 136-145 mmol/L Potassium Level 3.6 3.5-5.1 mmol/L Chloride Level 101 98-107 mmol/L Carbon Dioxide Level 19 L 20-31 mmol/L Anion Gap 11 5-15 Blood Urea Nitrogen 19 9-23 mg/dL Creatinine 0.70 0.700-1.30 mg/dL Glomerular Filtration Rate Calc 94 >90 mL/min BUN/Creatinine Ratio 27.1 H 10.0-20.0 Serum Glucose 121 H 74-106 mg/dL Calcium Level 7.8 L 8.7-10.4 mg/dL Total Bilirubin 0.5 0.2-1.0 mg/dL Aspartate Amino Transferase (AST) 31 0-34 U/L Alanine Aminotransferase (ALT) 43 H 7-40 U/L Alkaline Phosphatase 130 H 46-116 U/L Total Protein 5.0 L 5.7-8.2 g/dL Albumin 3.0 L 3.2-4.8 g/dL Troponin I High Sensitivity 14 </=54 ng/L Lactic Acid Level 2.1 *H 0.4-2.0 mmol/L Test 07/25/24 16:20 07/25/24 14:53 Range/Units Urine Color Yellow Yellow Urine Clarity Clear Clear Urine pH 6.0 5.0-9.0 Urine Specific [place] 1.024 1.001-1.035 Urine Protein Trace H Negative Urine Ketones Negative Negative Urine Blood Negative Negative /uL Urine Nitrite Negative Negative Urine Bilirubin Negative Negative Urine Urobilinogen 4 H Negative mg/dL Urine Leukocyte Esterase Negative Negative /uL Urine RBC 1 0 - 3 /hpf Urine Microscopic WBC 2 0-3 /HPF Urine Squamous Epithelial Cells Few <5 /hpf Urine Bacteria None seen None Seen /hpf Urine Glucose Normal Normal mg/dL Prothrombin Time 15.0 H 9.3-11.8 sec Prothrombin Time INR 1.47 H 0.9-1.15 Activated Partial Thromboplast Time 30.3 24.5-34.5 SEC Magnesium Level 1.8 1.6-2.6 mg/dL B-Type Natriuretic Peptide 533.04 0-100 pg/mL Lipase 26 12-53 U/L Microbiology Date/Time Source Procedure Growth Status 07/25/24 14:53 Blood Blood Culture - Preliminary Resulted CT SCAN ABD PELVIS IMPRESSION: 1. Irregular thickened wall of the rectum measuring 10-11 mm. 2. Multiple compressed lumbar vertebra slight increase in the compression of L3 2022. 3. Multiple bilateral renal cysts. 4. Small right pleural effusion. 5. If hepatic metastasis is of clinical concern recommend repeat study with IV contrast. Problems(with codes): (1) Atrial fibrillation with RVR (2) Hypotension (3) Dehydration (4) Rectal pain (5) Rectal cancer (6) Thrombocytopenia (7) Anemia Plan/Recommendation Plan At this point in time I would recommend conservative management from GI point of view Patient will be given IV fluid hydration; IV ppi Cardiology is monitoring the patient for treatment of rapid AFib and RVR I will give xylocaine ointment anorectally to help with the rectal pain and pain management as needed Nutritional support advance diet as tolerated ; monitor labs Once the patient is medically stabilized I would likely advised him to follow up with [facility] who have been following him over the last three years and arrange and evaluate for possible upcoming surgery I will follow this patient with you closely and I will also check a CEA level Plan discussed with: Patient, Other (ER Nurse) LEANDRO SHARMA MD Jul 26, 2024 16:47
[2024-07-26] MEDS: AMIODARONE 360mg/200mL PREMIX 200 ML IV SCH (18:19)
[2024-07-27] VITALS (48 sets, daily range): BP systolic 89–154; BP diastolic 21–124; PULSE 58–163; RESP 14–28; TEMP 97.5–99; O2SAT 81–100
[2024-07-27] MEDS: VANCOMYCIN 1.25GM/250ML 250 ML IV SCH ×2 (02:00→07:32)
[2024-07-27 05:36] LABS: Basophils # (auto) 0 10 ^3/uL (0-0.2); Eosinophils # (auto) 0 10 ^3/uL (0-0.8); Eosinophils % (auto) 0.5 % (0.0-7.0); Hematocrit 26.7 % (41.0-53.0); Hemoglobin 9.1 g/dL (13.5-17.5); Lymphocytes # (auto) 0.2 10 ^3/uL (0.4-5.4); Lymphocytes % (auto) 6.4 % (10.0-50.0); Mean Corpuscular Hemoglobin 27.8 pg (28.0-32.0); Mean Corpuscular Hgb Conc. 34.2 g/dL (32.0-36.0); Mean Corpuscular Volume 81.2 fL (80.0-100.0); Monocytes # (auto) 0.3 10 ^3/uL (0-1.3); Monocytes % (auto) 8.6 % (0.0-12.0); Neutrophils # (auto) 2.7 10 ^3/uL (1.6-8.6); Neutrophils % (auto) 84.5 % (37.0-80.0); Nucleated Red Blood Cells % 0.1 %; Platelet Count (auto) 145 10^3/uL (140-450); Red Blood Cells 3.29 10^6/uL (4.5-5.90); Red Cell Distribution Width 14.2 % (11.8-14.3); White Blood Cell 3.2 10^3/uL (4.4-10.8)
[2024-07-27 08:30] LABS: Chloride 105 mmol/L (98-107)
[2024-07-27 08:31] LABS: Anion Gap 11 (5-15)
[2024-07-27 08:35] LABS: Calcium 8.6 mg/dL (8.7-10.4); Carbon Dioxide 19 mmol/L (20-31); Potassium 3.2 mmol/L (3.5-5.1); Sodium 135 mmol/L (136-145)
[2024-07-27 08:36] LABS: BUN/Creatinine Ratio 21.9 (10.0-20.0); Blood Urea Nitrogen 14 mg/dL (9-23); Glucose 92 mg/dL (74-106)
[2024-07-27] MEDS: METOPROLOL TARTRATE 1MG/1ML-5ML VIAL IV ONE ×2 (11:26→14:00)
[2024-07-27] MEDS: POTASSIUM EFFERVESENT TAB 25 MEQ PO SCH (12:57)
--- NOTE | 2024-07-27 13:55 | DVHPN2 ---
Progress Note - Dictate Date Seen: Jul 27, 2024 Medical Necessity Reason Pt with a Central, PICC or Fol: No Subjective Patient notes improvement in rectal pain after Xylocaine application. Patient remains in atrial fibrillation with RVR. vital signs Vital Sign Date Time Temp Pulse Resp B/P (MAP) Pulse Ox O2 Delivery O2 Flow Rate FiO2 07/27/24 12:58 148 07/27/24 12:00 98.1 23 148/95 (112) 100 98.1 07/27/24 06:00 Room Air* 0 21 Total Intake and Output 07/26/24 07/26/24 07/27/24 15:00 23:00 07:00 Intake Total 890 ml 503.30 ml 493.28 ml Output Total 500 ml 450 ml Balance 890 ml 3.30 ml 43.28 ml medications Current Medications Medications Dose Ordered Sig/Vincent Route Start Time Stop Time Status Last Admin Dose Admin Acetaminophen 325 mg Q4HP PRN PO 07/25/24 17:30 Acetaminophen/ Hydrocodone Bitart 1 tab Q4HP PRN PO 07/25/24 17:30 07/27/24 11:27 1 TAB Temazepam 15 mg QHSP PRN PO 07/25/24 17:30 Enoxaparin Sodium 40 mg DAILY SC 07/26/24 10:00 07/27/24 11:26 40 MG Nitroglycerin 0.4 mg Q5MINP PRN SL 07/25/24 17:30 Morphine Sulfate 2 mg Q30M PRN IV 07/25/24 17:30 Digoxin 125 mcg DAILY IV 07/26/24 07:00 07/27/24 12:58 125 MCG Phenylephrine HCl 250 ml @ 30 mls/hr Q8H20M IV 07/25/24 22:45 Vancomycin HCl 0 ml @ 0 mls/hr UD IV 07/26/24 12:45 Vancomycin HCl 250 ml @ 200 mls/hr Q12H IV 07/27/24 07:00 07/27/24 07:32 200 MLS/HR Potassium Bicarbonate 50 meq BID PO 07/27/24 11:30 07/27/24 12:57 50 MEQ objective General appearance: No acute distress Respiratory: Lungs clear to auscultation. No wheezing, crackles Cardiovascular: Irregular rate and rhythm, no murmurs. No edema Abdomen: Soft, nondistended, nontender, bowel sounds present MSK: Normal range of motion. Neuro: Alert, no neurological deficits Psych: Appropriate mood and affect. laboratory and microbiology Laboratory Tests 07/27/24 05:00 Test 07/27/24 05:00 Range/Units Serum Glucose 92 74-106 mg/dL Assessment/Plan 1. Atrial Fibrillation with RVR 2. Rectal Cancer 3. Lower GIB 4. Sepsis Plan: - Cardiology consulted for atrial fibrillation RVR, Dr. Michele - TTE pending - Amiodarone drip transition to diltiazem. Both discontinued per cardiology. Given additional metoprolol 2.5mg IV, followed by 5mg - Patient started on digoxin. Patient remains at uncontrolled rate. - Vancomycin started due to blood culture showing gram-positive cocci in clusters. Irregular patient shows Staph aureus. Repeat blood cultures shows persistent bacteremia. Antibiotics de-escalated to ceftriaxone 1 g IV daily. -Infectious Disease consulted, Dr. Cabezas - Digoxin level pending - GI consulted due to rectal bleeding and rectal pain. Recommend xylocaine to be applied to site - Daily CBC and BMP - Full code Plan discussed with: Patient FRANSISCO ALANIZI John Jul 27, 2024 13:55
[2024-07-27] MEDS: SODIUM CHLORIDE 0.9% 2,000 ML IV ONE (14:00)
[2024-07-27] MEDS: AMIODARONE BOLUS KIT 100 ML IV ONE (15:02)
[2024-07-27] MEDS: cefTRIAXone 1GM/50ML D5W 50 ML IV SCH (15:02)
[2024-07-27] MEDS: AMIODARONE 360mg/200mL PREMIX 200 ML IV SCH ×2 (15:45)
--- NOTE | 2024-07-27 18:35 | DVHPN2 ---
Progress Note - Dictate Date Seen: Jul 27, 2024 Medical Necessity Reason Pt with a Central, PICC or Fol: No Subjective Patient was seen and evaluated in follow up in the ICU. Patient reports improvement in rectal pain after Xylocaine application. Patient remains in atrial fibrillation with RVR. Patient started on IV Amiodarone and IV Metoprolol. HGB 9.1, HCT 26.7, K 3.2, CO2 19, CA 8.6. Potassium was replaced. vital signs Vital Sign Date Time Temp Pulse Resp B/P (MAP) Pulse Ox O2 Delivery O2 Flow Rate FiO2 07/27/24 08:05 125/86 07/27/24 06:00 26 88 Room Air* 0 21 07/27/24 06:00 121 07/27/24 00:00 97.5 97.5 Total Intake and Output 07/26/24 07/26/24 07/27/24 15:00 23:00 07:00 Intake Total 890 ml 503.30 ml 493.28 ml Output Total 500 ml 450 ml Balance 890 ml 3.30 ml 43.28 ml medications Current Medications Medications Dose Ordered Sig/Vincent Route Start Time Stop Time Status Last Admin Dose Admin Acetaminophen 325 mg Q4HP PRN PO 07/25/24 17:30 Acetaminophen/ Hydrocodone Bitart 1 tab Q4HP PRN PO 07/25/24 17:30 07/26/24 23:08 1 TAB Temazepam 15 mg QHSP PRN PO 07/25/24 17:30 Enoxaparin Sodium 40 mg DAILY SC 07/26/24 10:00 07/26/24 09:55 40 MG Nitroglycerin 0.4 mg Q5MINP PRN SL 07/25/24 17:30 Morphine Sulfate 2 mg Q30M PRN IV 07/25/24 17:30 Digoxin 125 mcg DAILY IV 07/26/24 07:00 07/26/24 09:54 125 MCG Phenylephrine HCl 250 ml @ 30 mls/hr Q8H20M IV 07/25/24 22:45 Vancomycin HCl 0 ml @ 0 mls/hr UD IV 07/26/24 12:45 Vancomycin HCl 250 ml @ 200 mls/hr Q12H IV 07/27/24 07:00 07/27/24 07:32 200 MLS/HR objective GENERAL: Alert and oriented x 3. No acute distress. EYES: PERRL, EOMI. Anicteric. HENT: Moist mucous membranes. LUNGS: Clear to auscultation bilaterally. CARDIOVASCULAR: Regular rate and rhythm. ABDOMEN: Soft, nontender and nondistended. EXTREMITIES: No edema. NEUROLOGIC: No focal neurological deficits. SKIN: Warm, dry. laboratory and microbiology Laboratory Tests 07/27/24 05:00 Test 07/27/24 05:00 Range/Units Serum Glucose 92 74-106 mg/dL Problem List Atrial fibrillation with RVR. Hypotension. Dehydration. Rectal pain. Anemia. Thrombocytopenia. CHF. Rectal Cancer on chemo. Lower GIB. Sepsis Assessment/Plan Continued all current supportive medical care. Echocardiogram. IV Amiodarone. IV Metoprolol. Morphine and [place] for pain management. IV antibiotics as ordered. Digoxin. DVT prophylactics. Nitro SL. Additional plan as per the hospital course. Critical care time of 45 minutes provided to include time spent evaluation of patient at bedside, when appropriate patient/family education for diagnosis, treatment plan, review of pertinent medical information and discussion of care with specialty providers and PCP. Plan discussed with: Patient JT ANGELES MD Jul 27, 2024 11:27
[2024-07-27] MEDS: TEMAZEPAM 15 MG CAP PO PRN (21:14)
[2024-07-28] VITALS (37 sets, daily range): BP systolic 98–154; BP diastolic 67–118; PULSE 88–143; RESP 19–30; TEMP 97.8–99; O2SAT 88–100
[2024-07-28 04:57] LABS: Basophils # (auto) 0 10 ^3/uL (0-0.2); Basophils % (auto) 0.1 % (0.0-2.0); Eosinophils # (auto) 0 10 ^3/uL (0-0.8); Eosinophils % (auto) 0.8 % (0.0-7.0); Hematocrit 25.6 % (41.0-53.0); Hemoglobin 8.7 g/dL (13.5-17.5); Lymphocytes # (auto) 0.3 10 ^3/uL (0.4-5.4); Lymphocytes % (auto) 10.3 % (10.0-50.0); Mean Corpuscular Hemoglobin 27.4 pg (28.0-32.0); Mean Corpuscular Hgb Conc. 34.1 g/dL (32.0-36.0); Mean Corpuscular Volume 80.3 fL (80.0-100.0); Monocytes # (auto) 0.3 10 ^3/uL (0-1.3); Monocytes % (auto) 12.3 % (0.0-12.0); Neutrophils % (auto) 76.5 % (37.0-80.0); Nucleated Red Blood Cells % 0.3 %; Platelet Count (auto) 162 10^3/uL (140-450); Red Blood Cells 3.19 10^6/uL (4.5-5.90); Red Cell Distribution Width 14.5 % (11.8-14.3); White Blood Cell 2.6 10^3/uL (4.4-10.8)
[2024-07-28 05:55] LABS: Chloride 107 mmol/L (98-107); Sodium 137 mmol/L (136-145)
[2024-07-28 05:56] LABS: Anion Gap 10 (5-15)
[2024-07-28 05:58] LABS: Calcium 8.5 mg/dL (8.7-10.4); Carbon Dioxide 20 mmol/L (20-31); Potassium 3.3 mmol/L (3.5-5.1)
[2024-07-28 06:01] LABS: Glucose 99 mg/dL (74-106)
[2024-07-28 06:02] LABS: BUN/Creatinine Ratio 14.5 (10.0-20.0); Blood Urea Nitrogen 8 mg/dL (9-23)
[2024-07-28] MEDS: SODIUM CHLORIDE 0.9% 1,000 ML IV ONE (10:00)
[2024-07-28] MEDS: METOPROLOL TARTRATE 1MG/1ML-5ML VIAL IV ONE (10:38)
[2024-07-28] MEDS: METOPROLOL TARTRATE 25 MG TAB PO SCH (11:06)
[2024-07-28] MEDS: Ensure Enlive Chocolate 8oz Bottle PO SCH (12:00)
--- NOTE | 2024-07-28 12:18 | DVHPN2 ---
Progress Note - Dictate Date Seen: Jul 28, 2024 Medical Necessity Reason Pt with a Central, PICC or Fol: No Subjective Patient remains in atrial fibrillation with RVR. Notes blood bowel movement. vital signs Vital Sign Date Time Temp Pulse Resp B/P (MAP) Pulse Ox O2 Delivery O2 Flow Rate FiO2 07/28/24 11:06 130 133/95 07/28/24 08:00 97.8 21 100 97.8 07/28/24 08:00 Room Air* 0 21 Total Intake and Output 07/27/24 07/27/24 07/28/24 15:00 23:00 07:00 Intake Total 1486.62 ml 1673.30 ml 366.64 ml Output Total 25 ml 100 ml Balance 1486.62 ml 1648.30 ml 266.64 ml medications Current Medications Medications Dose Ordered Sig/Vincent Route Start Time Stop Time Status Last Admin Dose Admin Acetaminophen 325 mg Q4HP PRN PO 07/25/24 17:30 Acetaminophen/ Hydrocodone Bitart 1 tab Q4HP PRN PO 07/25/24 17:30 07/28/24 06:07 1 TAB Temazepam 15 mg QHSP PRN PO 07/25/24 17:30 07/27/24 21:14 15 MG Enoxaparin Sodium 40 mg DAILY SC 07/26/24 10:00 07/27/24 11:26 40 MG Nitroglycerin 0.4 mg Q5MINP PRN SL 07/25/24 17:30 Morphine Sulfate 2 mg Q30M PRN IV 07/25/24 17:30 Digoxin 125 mcg DAILY IV 07/26/24 07:00 07/28/24 10:26 125 MCG Phenylephrine HCl 250 ml @ 30 mls/hr Q8H20M IV 07/25/24 22:45 Potassium Bicarbonate 50 meq BID PO 07/27/24 11:30 07/28/24 10:25 50 MEQ Ceftriaxone Sodium 50 ml @ 100 mls/hr DAILY@09 IV 07/27/24 14:00 07/28/24 08:20 100 MLS/HR Enteral Nutritional Formula 240 ml BIDBL PO 07/28/24 12:00 Metoprolol Tartrate 25 mg BID PO 07/28/24 11:00 07/28/24 11:06 25 MG objective General appearance: No acute distress Respiratory: Lungs clear to auscultation. No wheezing, crackles Cardiovascular: Irregular rate and rhythm, no murmurs. No edema Abdomen: Soft, nondistended, nontender, bowel sounds present MSK: Normal range of motion. Neuro: Alert, no neurological deficits Psych: Appropriate mood and affect. laboratory and microbiology Laboratory Tests 07/28/24 04:41 Test 07/28/24 04:41 Range/Units Serum Glucose 99 74-106 mg/dL Assessment/Plan 1. Atrial Fibrillation with RVR 2. Rectal Cancer 3. Lower GIB 4. Sepsis Plan: - Cardiology consulted for atrial fibrillation RVR, Dr. Michele - TTE read pending. - Amiodarone drip restarted with bolus. Metoprolol tartrate 25mg BID started due to rate not controlled. - Patient started on digoxin. Patient remains at uncontrolled rate. - Vancomycin started due to blood culture showing gram-positive cocci in clusters. Irregular patient shows Staph aureus. Repeat blood cultures shows persistent bacteremia. Antibiotics de-escalated to ceftriaxone 1 g IV daily. -Infectious Disease consulted, Dr. Cabezas - Digoxin level pending - GI consulted due to rectal bleeding and rectal pain. Recommend xylocaine to be applied to site -2L bolus given 07/27 due to concern for sepsis. 1L bolus given 07/28. -Blood cultures repeated - Daily CBC and BMP - Full code Dietary Evaluation Review Recommendations by RD: Protein Supplementation Comments: 1) Initiate Ensure Enlive bid 2) Encourage optimal PO intake 3) Follow-up with gastroenterology, oncology, and cardiology 4) Continue to monitor I&O, labs, and skin integrity Expected Outcomes/Goals: 1) appetite and labs to improve 2) GI symptoms to resolve 3) f/u in 3-5 days Plan discussed with: Patient GRISELDA ALANIZ John BUTLER Jul 28, 2024 12:18
--- NOTE | 2024-07-28 16:46 | DVHPN2 ---
Progress Note - Dictate Date Seen: Jul 28, 2024 Medical Necessity Reason Pt with a Central, PICC or Fol: No Subjective No new complaints Started on Amiodarone for Afib with Rapid RVR Patient had a moderate amount of dark bloody liquid stool this morning Hemoglobin down to 8.7, Lovenox is now on hold Barrier cream is being applied and lidocaine ointment prn for rectal pain vital signs Vital Sign Date Time Temp Pulse Resp B/P (MAP) Pulse Ox O2 Delivery O2 Flow Rate FiO2 07/28/24 14:00 115 07/28/24 14:00 21 98 Room Air* 0 21 07/28/24 12:06 116/83 07/28/24 12:00 97.8 97.8 Total Intake and Output 07/27/24 07/27/24 07/28/24 14:59 22:59 06:59 Intake Total 503.28 ml 2639.97 ml 366.64 ml Output Total 25 ml 100 ml Balance 503.28 ml 2614.97 ml 266.64 ml medications Current Medications Medications Dose Ordered Sig/Vincent Route Start Time Stop Time Status Last Admin Dose Admin Acetaminophen 325 mg Q4HP PRN PO 07/25/24 17:30 Acetaminophen/ Hydrocodone Bitart 1 tab Q4HP PRN PO 07/25/24 17:30 07/28/24 12:41 1 TAB Temazepam 15 mg QHSP PRN PO 07/25/24 17:30 07/27/24 21:14 15 MG Enoxaparin Sodium 40 mg DAILY SC 07/26/24 10:00 07/27/24 11:26 40 MG Nitroglycerin 0.4 mg Q5MINP PRN SL 07/25/24 17:30 Morphine Sulfate 2 mg Q30M PRN IV 07/25/24 17:30 Digoxin 125 mcg DAILY IV 07/26/24 07:00 07/28/24 10:26 125 MCG Phenylephrine HCl 250 ml @ 30 mls/hr Q8H20M IV 07/25/24 22:45 Potassium Bicarbonate 50 meq BID PO 07/27/24 11:30 07/28/24 10:25 50 MEQ Ceftriaxone Sodium 50 ml @ 100 mls/hr DAILY@09 IV 07/27/24 14:00 07/28/24 08:20 100 MLS/HR Enteral Nutritional Formula 240 ml BIDBL PO 07/28/24 12:00 Metoprolol Tartrate 25 mg BID PO 07/28/24 11:00 07/28/24 11:06 25 MG objective GENERAL: Alert and oriented x 3. No acute distress. Appears weak and chronically ill EYES: PERRL, EOMI. Anicteric.Mild pallor LUNGS: Clear to auscultation bilaterally. CARDIOVASCULAR: Irregular rate and rhythm. ABDOMEN: Soft, nontender and nondistended. EXTREMITIES: No edema. NEUROLOGIC: No focal neurological deficits. laboratory and microbiology Laboratory Tests 07/28/24 04:41 Test 07/28/24 04:41 Range/Units Serum Glucose 99 74-106 mg/dL Problems(with codes): (1) Atrial fibrillation with RVR (2) Rectal cancer (3) Dehydration (4) Rectal pain (5) Anemia Prognosis PLAN Advance diet as tolerated Continue liquid anorectal care and sacral care Continue recommendations as per Cardiology At this point in time I would recommend conservative management from GI point of view Once the patient is medically stabilized I would likely advised him to follow up with [facility] who have been following him over the last three years and arrange and evaluate for possible upcoming surgery I will follow this patient with you closely and I will also check a CEA level Dietary Evaluation Review Recommendations by RD: Protein Supplementation Comments: 1) Initiate Ensure Enlive bid 2) Encourage optimal PO intake 3) Follow-up with gastroenterology, oncology, and cardiology 4) Continue to monitor I&O, labs, and skin integrity Expected Outcomes/Goals: 1) appetite and labs to improve 2) GI symptoms to resolve 3) f/u in 3-5 days Plan discussed with: Patient LEANDRO SHARMA MD Jul 28, 2024 16:46
--- NOTE | 2024-07-28 17:27 | DVHPN2 ---
Progress Note - Dictate Date Seen: Jul 28, 2024 Medical Necessity Reason Pt with a Central, PICC or Fol: No Subjective Patient was seen and evaluated in follow up in the ICU. Patient remains in A-fib with RVR. Patient had a moderate amount of dark bloody liquid stool this morning. Lovenox is being held. Liver enzymes and lactic acid trending down. HGB 8.7, HCT 25.6, K 3.3, CA 8.5. vital signs Vital Sign Date Time Temp Pulse Resp B/P (MAP) Pulse Ox O2 Delivery O2 Flow Rate FiO2 07/28/24 12:06 99 116/83 07/28/24 12:00 21 97 Room Air* 0 21 07/28/24 12:00 97.8 97.8 Total Intake and Output 07/27/24 07/27/24 07/28/24 15:00 23:00 07:00 Intake Total 1486.62 ml 1673.30 ml 366.64 ml Output Total 25 ml 100 ml Balance 1486.62 ml 1648.30 ml 266.64 ml medications Current Medications Medications Dose Ordered Sig/Vincent Route Start Time Stop Time Status Last Admin Dose Admin Acetaminophen 325 mg Q4HP PRN PO 07/25/24 17:30 Acetaminophen/ Hydrocodone Bitart 1 tab Q4HP PRN PO 07/25/24 17:30 07/28/24 12:41 1 TAB Temazepam 15 mg QHSP PRN PO 07/25/24 17:30 07/27/24 21:14 15 MG Enoxaparin Sodium 40 mg DAILY SC 07/26/24 10:00 07/27/24 11:26 40 MG Nitroglycerin 0.4 mg Q5MINP PRN SL 07/25/24 17:30 Morphine Sulfate 2 mg Q30M PRN IV 07/25/24 17:30 Digoxin 125 mcg DAILY IV 07/26/24 07:00 07/28/24 10:26 125 MCG Phenylephrine HCl 250 ml @ 30 mls/hr Q8H20M IV 07/25/24 22:45 Potassium Bicarbonate 50 meq BID PO 07/27/24 11:30 07/28/24 10:25 50 MEQ Ceftriaxone Sodium 50 ml @ 100 mls/hr DAILY@09 IV 07/27/24 14:00 07/28/24 08:20 100 MLS/HR Enteral Nutritional Formula 240 ml BIDBL PO 07/28/24 12:00 Metoprolol Tartrate 25 mg BID PO 07/28/24 11:00 07/28/24 11:06 25 MG objective GENERAL: Alert and oriented x 3. No acute distress. EYES: PERRL, EOMI. Anicteric. HENT: Moist mucous membranes. LUNGS: Clear to auscultation bilaterally. CARDIOVASCULAR: Regular rate and rhythm. ABDOMEN: Soft, nontender and nondistended. EXTREMITIES: No edema. NEUROLOGIC: No focal neurological deficits. SKIN: Warm, dry. laboratory and microbiology Laboratory Tests 07/28/24 04:41 Test 07/28/24 04:41 Range/Units Serum Glucose 99 74-106 mg/dL Problem List Atrial fibrillation with RVR. Hypotension. Dehydration. Rectal pain. Anemia. Thrombocytopenia. CHF. Rectal Cancer on chemo. Lower GIB. Sepsis Assessment/Plan Continued all current supportive medical care. Echocardiogram. IV Amiodarone. IV Metoprolol. Morphine and [place] for pain management. IV antibiotics as ordered. Digoxin. DVT prophylactics. Nitro SL. Additional plan as per the hospital course. Critical care time of 45 minutes provided to include time spent evaluation of patient at bedside, when appropriate patient/family education for diagnosis, treatment plan, review of pertinent medical information and discussion of care with specialty providers and PCP. Dietary Evaluation Review Recommendations by RD: Protein Supplementation Comments: 1) Initiate Ensure Enlive bid 2) Encourage optimal PO intake 3) Follow-up with gastroenterology, oncology, and cardiology 4) Continue to monitor I&O, labs, and skin integrity Expected Outcomes/Goals: 1) appetite and labs to improve 2) GI symptoms to resolve 3) f/u in 3-5 days Plan discussed with: Patient JT ANGELES MD Jul 28, 2024 13:46
[2024-07-28] MEDS ORDERED: METOPROLOL TARTRATE 25 MG TAB PO SCH (22:00)
--- NOTE | 2024-07-28 22:33 | DVHPN2 ---
Consult Progress Note Date Seen: Jul 28, 2024 Subjective Patient reports: Other (patient is septic appearing , altered and a little confused . port catheter insertion site appears clean ) Objective vital signs Vital Sign Date Time Temp Pulse Resp B/P (MAP) Pulse Ox O2 Delivery O2 Flow Rate FiO2 07/28/24 21:28 116 135/88 07/28/24 20:00 99.0 25 89 99.0 07/28/24 18:00 Room Air* 0 21 Total Intake and Output 07/27/24 07/27/24 07/28/24 15:00 23:00 07:00 Intake Total 1486.62 ml 1673.30 ml 366.64 ml Output Total 25 ml 100 ml Balance 1486.62 ml 1648.30 ml 266.64 ml medications Current Medications Medications Dose Ordered Sig/Vincent Route Start Time Stop Time Status Last Admin Dose Admin Acetaminophen 325 mg Q4HP PRN PO 07/25/24 17:30 Acetaminophen/ Hydrocodone Bitart 1 tab Q4HP PRN PO 07/25/24 17:30 07/28/24 17:54 1 TAB Temazepam 15 mg QHSP PRN PO 07/25/24 17:30 07/27/24 21:14 15 MG Enoxaparin Sodium 40 mg DAILY SC 07/26/24 10:00 07/27/24 11:26 40 MG Nitroglycerin 0.4 mg Q5MINP PRN SL 07/25/24 17:30 Morphine Sulfate 2 mg Q30M PRN IV 07/25/24 17:30 Digoxin 125 mcg DAILY IV 07/26/24 07:00 07/28/24 10:26 125 MCG Phenylephrine HCl 250 ml @ 30 mls/hr Q8H20M IV 07/25/24 22:45 Potassium Bicarbonate 50 meq BID PO 07/27/24 11:30 07/28/24 21:28 50 MEQ Ceftriaxone Sodium 50 ml @ 100 mls/hr DAILY@09 IV 07/27/24 14:00 07/28/24 08:20 100 MLS/HR Enteral Nutritional Formula 240 ml BIDBL PO 07/28/24 12:00 Metoprolol Tartrate 25 mg BID PO 07/28/24 11:00 07/28/24 21:28 25 MG Lidocaine HCl 1 applic Q8HP PRN TOP 07/28/24 17:00 Physical Exam: General: NAD Neck: Supple. No masses. HEENT: PERRL. Normal lids and conjunctiva. Moist mucous membranes. Oropharynx without lesions, exudates or excessive erythema. Normal appearance of the external aspects of the nose and ears. Heart: Irregularly irregular rhythm, tachycardic. No murmur. No lower extremity edema. Lungs: Normal respiratory effort. Clear to auscultation bilaterally. No wheezes. No crackles. Abdomen: Soft. Non-tender. Non-distended. Hyperactive bowel sounds. No masses or abdominal hernia. Msk: No digital cyanosis. Normal strength and tone in all 4 limbs. Skin: Warm and dry, no rashes. Neuro: Alert. No facial droop or slurred speech. Extra-ocular movements intact. Sensation intact to soft touch in all 4 limbs. Psych: Appropriate mood. Full affect. Oriented to person, place, time, and situation. laboratory and microbiology Laboratory Tests 07/28/24 04:41 Test 07/28/24 04:41 Range/Units Serum Glucose 99 74-106 mg/dL Problem List/Assessment/Plan Problems(with codes): (1) Intractable abdominal pain (2) Hypotension (3) Rectal cancer (4) Atrial fibrillation with RVR (5) Sepsis due to urinary tract infection (6) MSSA bacteremia Problem List/Assessment/Plan ASSESSMENT AND PLAN: ID Problem List: - Metastatic rectal cancer (with hepatic metastases) - Sepsis, bacteremia (MSSA) - Neutropenia - Anemia, thrombocytopenia - Atrial fibrillation with rapid ventricular response (RVR) - Congestive heart failure - Poor oral intake, dehydration - Rectal pain - Urinary retention, constipation Assessment: This is a male patient with a history of metastatic rectal cancer (with hepatic metastases) admitted for generalized weakness, rectal pain, and poor oral intake. He was found to be in atrial fibrillation with rapid ventricular response (heart rate ~170s), hypotensive to the 80s on arrival, and in lactic acidosis. Laboratory studies notable for white blood cell count 4.2, hemoglobin 9.5, and worsening neutropenia (lowest 1.8), with thrombocytopenia (platelet gunner 128K). Imaging of the abdomen/pelvis notable for irregular thickening of the rectal wall (1011 mm), multiple compressed lumbar vertebrae, multiple bilateral renal cysts, and hepatic metastases. Recent echocardiogram showed moderately dilated right ventricle and right ventricular dyskinesis, EF 60%, no vegetations, and grossly normal valves. Blood cultures positive for MSSA in multiple sets (initially 2/4, then up to 3/4, then 1/4), concerning for ongoing bacteremia. No clear source of infection identified. Currently on vancomycin and ceftriaxone. Also on recent chemotherapy. Patient has ongoing poor oral intake, is weak, has persistent rectal pain, and is experiencing urinary retention and constipation. 07/28: no clear source at this time for infection but suspect is likely related to port cath given persistent staph aureus growth in the blood cultures which are now positive in 2/4 bottles. Plan: - Continue vancomycin , troths are subtherapeutic . will request pharmacy to adjust dosing promptly so that infection can be eradicated - patient will require a SIMONE to fully rule out endocarditis as there is no clear infection source at this time - repeat blood cultures until cultures have cleared - may need to consider a port line removal if staph aureus bacteremia persists in the coming days but can hold off for now - Daily repeat blood cultures until negative - Continue to monitor for source of infection; consider imaging if not already performed - Continue close monitoring of neutropenia; if neutropenia worsens or seizures occur, consider hematology/oncology consultation - Continue amiodarone and diltiazem drips for rate control of atrial fibrillation; defer further management to cardiology team - Monitor for cardiac complications; recent echocardiogram reassuring with no vegetations or effusions - Monitor volume status and provide supportive care for dehydration and poor oral intake - Symptomatic management of rectal pain, urinary retention, and constipation - If liver lesions are persistently symptomatic or if there are clinical concerns, may consider MRI for further evaluation of hepatic metastases and rule out embolic phenomena - Multidisciplinary care ongoing (oncology, cardiology, ID) - Continue current home medications as appropriate (iron, amiodarone, apixaban, lisinopril, atenolol, digoxin) Isolation Precautions: Not specified Plan discussed with: Other Dietary Evaluation Review Recommendations by RD: Protein Supplementation Comments: 1) Initiate Ensure Enlive bid 2) Encourage optimal PO intake 3) Follow-up with gastroenterology, oncology, and cardiology 4) Continue to monitor I&O, labs, and skin integrity Expected Outcomes/Goals: 1) appetite and labs to improve 2) GI symptoms to resolve 3) f/u in 3-5 days VESTA HEMPHILL MD Jul 28, 2024 22:33
--- NOTE | 2024-07-28 22:33 | DVHINCON2 ---
Date of service: Jul 28, 2024 Family History: Patient reports no known family medical history. Allergies: Coded Allergies: NO KNOWN ALLERGIES (Unverified , 09/10/21) Home Meds Active Scripts Sulfamethoxazole W/Trimethopri (Bactrim Ds Tablet) 1 Tab Tb, 1 TAB PO BID for 10 Days, #20 TAB Prov:JUAN JOSE LAU MD 07/09/24 Polyethylene Glycol 3350 (Miralax) 17 Gm Pow, 17 GM PO BID PRN MDD 34gm for 30 Days, #30 POW 3 Refills Take twice a day as needed for constipation. Prov:GRISELDA ALANIZ DO 09/13/23 Ciprofloxacin Hcl (Cipro) 500 Mg Tab, 1 TAB PO BID for 7 Days, #14 TAB Prov:NINO WASHBURN MD 10/24/22 Metronidazole (Metronidazole) 500 Mg Tab, 500 MG PO TID for 7 Days, #21 TAB Prov:NINO WASHBURN MD 10/24/22 Ferrous Sulfate (Ferosul) 325 Mg Tab, 1 TAB PO BID, #60 TAB Prov:NINO WASHBURN MD 10/24/22 Amiodarone HCl (Amiodarone HCl) 200 Mg Tab, 200 MG PO BID, #60 TAB 2 Refills Prov:BRISA PETERSON MD 05/01/22 Apixaban Base (ELIQUIS) 5 Mg Tab, 5 MG PO BID for 30 Days, #60 TAB Prov:BRISA PETERSON MD 05/01/22 Reported Medications Lisinopril (Lisinopril) 40 Mg Tab, 1 TAB PO DAILY 05/01/22 Atenolol & Chlorthalidone (Atenolol/Chlorthalidone 50-25 mg) 1 Tab Tab, 1 TAB PO DAILY 05/01/22 Current Medications Current Medications Medications (Trade) Dose Ordered Sig/Vincent Route PRN Reason Start Time Stop Time Status Last Admin Enteral Nutritional Formula (Ensure Enlive) 240 ml BIDBL PO 07/28/24 12:00 Metoprolol Tartrate (Lopressor Tablet) 25 mg BID PO 07/28/24 22:00 07/28/24 10:51 DC Metoprolol Tartrate (Lopressor Tablet) 25 mg BID PO 07/28/24 11:00 07/28/24 21:28 Lidocaine HCl (Xylocaine 5% Topical Ointment) 1 applic Q8HP PRN TOP PAIN SCALE 7 THRU 10 07/28/24 17:00 Vital Signs Vital Signs Date Time Temp Pulse Resp B/P (MAP) Pulse Ox O2 Delivery O2 Flow Rate FiO2 07/28/24 21:28 116 135/88 07/28/24 20:00 99.0 25 89 99.0 07/28/24 18:00 Room Air* 0 21 Labs/Diagnostic Data Labs Test 07/28/24 04:41 07/27/24 05:00 07/26/24 03:47 07/25/24 18:19 Range/Units White Blood Count 2.6 L 4.4-10.8 10^3/uL Red Blood Count 3.19 L 4.5-5.90 10^6/uL Hemoglobin 8.7 L 13.5-17.5 g/dL Hematocrit 25.6 L 41.0-53.0 % Mean Corpuscular Volume 80.3 80.0-100.0 fL Mean Corpuscular Hemoglobin 27.4 L 28.0-32.0 pg Mean Corpuscular Hemoglobin Concent 34.1 32.0-36.0 g/dL Red Cell Distribution Width 14.5 H 11.8-14.3 % Platelet Count 162 140-450 10^3/uL Mean Platelet Volume 7.2 6.9-10.8 fL Neutrophils (%) (Auto) 76.5 37.0-80.0 % Lymphocytes (%) (Auto) 10.3 10.0-50.0 % Monocytes (%) (Auto) 12.3 H 0.0-12.0 % Eosinophils (%) (Auto) 0.8 0.0-7.0 % Basophils (%) (Auto) 0.1 0.0-2.0 % Neutrophils # (Auto) 2.0 1.6-8.6 10 ^3/uL Lymphocytes # (Auto) 0.3 L 0.4-5.4 10 ^3/uL Monocytes # (Auto) 0.3 0-1.3 10 ^3/uL Eosinophils # (Auto) 0 0-0.8 10 ^3/uL Basophils # (Auto) 0 0-0.2 10 ^3/uL Nucleated Red Blood Cells 0.3 % Sodium Level 137 136-145 mmol/L Potassium Level 3.3 L 3.5-5.1 mmol/L Chloride Level 107 98-107 mmol/L Carbon Dioxide Level 20 20-31 mmol/L Anion Gap 10 5-15 Blood Urea Nitrogen 8 L 9-23 mg/dL Creatinine 0.55 L 0.700-1.30 mg/dL Glomerular Filtration Rate Calc 101 >90 mL/min BUN/Creatinine Ratio 14.5 10.0-20.0 Serum Glucose 99 74-106 mg/dL Calcium Level 8.5 L 8.7-10.4 mg/dL Vancomycin Level Trough 5.8 5-10 ug/mL Digoxin Level 1.07 0.8-2 ng/mL Total Bilirubin 0.5 0.2-1.0 mg/dL Aspartate Amino Transferase (AST) 31 0-34 U/L Alanine Aminotransferase (ALT) 43 H 7-40 U/L Alkaline Phosphatase 130 H 46-116 U/L Total Protein 5.0 L 5.7-8.2 g/dL Albumin 3.0 L 3.2-4.8 g/dL Troponin I High Sensitivity 14 </=54 ng/L Test 07/25/24 16:54 07/25/24 16:20 07/25/24 14:53 Range/Units Lactic Acid Level 2.1 *H 0.4-2.0 mmol/L Urine Color Yellow Yellow Urine Clarity Clear Clear Urine pH 6.0 5.0-9.0 Urine Specific Hardin 1.024 1.001-1.035 Urine Protein Trace H Negative Urine Ketones Negative Negative Urine Blood Negative Negative /uL Urine Nitrite Negative Negative Urine Bilirubin Negative Negative Urine Urobilinogen 4 H Negative mg/dL Urine Leukocyte Esterase Negative Negative /uL Urine RBC 1 0 - 3 /hpf Urine Microscopic WBC 2 0-3 /HPF Urine Squamous Epithelial Cells Few <5 /hpf Urine Bacteria None seen None Seen /hpf Urine Glucose Normal Normal mg/dL Prothrombin Time 15.0 H 9.3-11.8 sec Prothrombin Time INR 1.47 H 0.9-1.15 Activated Partial Thromboplast Time 30.3 24.5-34.5 SEC Magnesium Level 1.8 1.6-2.6 mg/dL B-Type Natriuretic Peptide 533.04 0-100 pg/mL Lipase 26 12-53 U/L Microbiology Date/Time Source Procedure Growth Status 07/26/24 18:12 Nose MRSA Screen - Final Complete 07/26/24 12:44 Blood Blood Culture - Preliminary Staphylococcus aureus Resulted Problems(with codes): (1) MSSA bacteremia (2) Atrial fibrillation with RVR (3) Rectal cancer (4) Hypotension (5) Thrombocytopenia (6) Sepsis due to urinary tract infection Plan/Recommendation ASSESSMENT AND PLAN: ID Problem List: - Metastatic rectal cancer (with hepatic metastases) - Sepsis, bacteremia (MSSA) - Neutropenia - Anemia, thrombocytopenia - Atrial fibrillation with rapid ventricular response (RVR) - Congestive heart failure - Poor oral intake, dehydration - Rectal pain - Urinary retention, constipation Assessment: This is a male patient with a history of metastatic rectal cancer (with hepatic metastases) admitted for generalized weakness, rectal pain, and poor oral intake. He was found to be in atrial fibrillation with rapid ventricular response (heart rate ~170s), hypotensive to the 80s on arrival, and in lactic acidosis. Laboratory studies notable for white blood cell count 4.2, hemoglobin 9.5, and worsening neutropenia (lowest 1.8), with thrombocytopenia (platelet nad ir 128K). Imaging of the abdomen/pelvis notable for irregular thickening of the rectal wall (1011 mm), multiple compressed lumbar vertebrae, multiple bilateral renal cysts, and hepatic metastases. Recent echocardiogram showed moderately dilated right ventricle and right ventricular dyskinesis, EF 60%, no vegetations, and grossly normal valves. Blood cultures positive for MSSA in multiple sets (initially 2/4, then up to 3/4, then 1/4), concerning for ongoing bacteremia. No clear source of infection identified. Currently on vancomycin and ceftriaxone. Also on recent chemotherapy. Patient has ongoing poor oral intake, is weak, has persistent rectal pain, and is experiencing urinary retention and constipation. Plan: - Continue vancomycin for ongoing MSSA bacteremia; monitor for culture clearance - Daily repeat blood cultures until negative - Continue to monitor for source of infection; consider imaging if not already performed - Continue close monitoring of neutropenia; if neutropenia worsens or seizures occur, consider hematology/oncology consultation - Continue amiodarone and diltiazem drips for rate control of atrial fibrillation; defer further management to cardiology team - Monitor for cardiac complications; recent echocardiogram reassuring with no vegetations or effusions - Monitor volume status and provide supportive care for dehydration and poor oral intake - Symptomatic management of rectal pain, urinary retention, and constipation - If liver lesions are persistently symptomatic or if there are clinical concerns, may consider MRI for further evaluation of hepatic metastases and rule out embolic phenomena - Multidisciplinary care ongoing (oncology, cardiology, ID) - Continue current home medications as appropriate (iron, amiodarone, apixaban, lisinopril, atenolol, digoxin) Isolation Precautions: Not specified Assessment and plan was discussed with the patient as written above Plan is subject to change pending incorporation of new incoming information/diagnostics. Updates may be added as addendum at the bottom (OR TOP) of this note Thank you for interesting consult. ID will continue to follow. Please contact Infectious Disease for any questions or concerns. Vesta Cabezas M.D. [facility] Ph: ? Teams text: [email or web address] Electronically signed by: Vesta Cabezas MD, 07/31/2024 History: The patient's chart and medications were reviewed in detail and the patient was seen and examined. History obtained from: patient The patient is a male with a history of metastatic rectal cancer who presented via ambulance for increasing generalized weakness and rectal pain. He reports significantly decreased oral intake, with inability to tolerate food or drink. Home medications include iron, amiodarone, apixaban, lisinopril, and atenolol. Review of Systems: A complete 10-system review of systems was completed and negative except as noted in the HPI or here. ROS: - CONSTITUTIONAL: Positive for generalized weakness. Denies weight loss, fever and chills. - HEENT: Not discussed. - RESPIRATORY: Not discussed. - CV: Positive for palpitations (history of atrial fibrillation). Denies chest pain. - GI: Positive for rectal pain, poor oral intake, constipation. Denies adams temesis or melena. - : Positive for urinary retention. - MSK: Not discussed. - SKIN: Not discussed. - NEUROLOGICAL: Not discussed. - PSYCHIATRIC: Not discussed. Past Medical History: - Metastatic rectal cancer - Atrial fibrillation - Congestive heart failure - Anemia - Thrombocytopenia - History of chemotherapy (recent) Past Surgical History: Not provided in transcript. Home Medications: - Iron (dose and frequency not specified) - Amiodarone (dose and frequency not specified) - Apixaban (dose and frequency not specified) - Lisinopril (dose and frequency not specified) - Atenolol (dose and frequency not specified) - Digoxin (dose and frequency not specified) There may be additional home chemotherapy but not specified Allergies: Not provided in transcript. Family History: Not provided in transcript. Social History: Not provided in transcript. Social Determinants of Health: Not provided in transcript. Objective: Vital Signs on Admission: - Temperature: 98.7 F - Heart Rate: 170s (atrial fibrillation) - Respiratory Rate: 28 - Blood Pressure: 101/68 - SpO2: 79% on room air (hypoxic on arrival) Most Recent Vital Signs: Not provided in transcript. Admission Weight: Not provided in transcript. Physical Exam: General: NAD Neck: Supple. No masses. HEENT: PERRL. Normal lids and conjunctiva. Moist mucous membranes. Oropharynx without lesions, exudates or excessive erythema. Normal appearance of the external aspects of the nose and ears. Heart: Irregularly irregular rhythm, tachycardic. No murmur. No lower extremity edema. Lungs: Normal respiratory effort. Clear to auscultation bilaterally. No wheezes. No crackles. Abdomen: Soft. Non-tender. Non-distended. Hyperactive bowel sounds. No masses or abdominal hernia. Msk: No digital cyanosis. Normal strength and tone in all 4 limbs. Skin: Warm and dry, no rashes. Neuro: Alert. No facial droop or slurred speech. Extra-ocular movements intact. Sensation intact to soft touch in all 4 limbs. Psych: Appropriate mood. Full affect. Oriented to person, place, time , and situation. Lines: Not provided in transcript. Diagnostic Studies: Available diagnostic studies were reviewed personally. Significant relevant results and findings are outlined below or addressed in the Assessment and Plan above. Pertinent Imaging: - Chest X-ray: No acute intrathoracic process; small right pleural effusion noted. - Abdomen/Pelvis CT: Irregular thickened rectal wall (10-11 mm), multiple compressed lumbar vertebrae, slight increase in compression at L3, multiple bilateral renal cysts, hepatic metastases. - Echocardiogram: Moderately dilated right ventricle, right ventricular dyskinesis, normal valves, EF 60%, no vegetations or effusions. Laboratory Data: (Noted mendieta findings per transcript) - Initial WBC: 4.2 - Initial Hemoglobin: 9.5 - Progression to neutropenia: WBC 1.8, Hemoglobin 8.0, platelets 128K - BUN: 14, Creatinine: 0.64 Microbiology: - Blood cultures: MSSA, initially positive 2/4, progressing to 3/4, then 1/4 bottles Addenda: None at this time. If additional details are needed, please provide further transcript or data from the patient chart. Plan discussed with: Patient VESTA CABEZAS MD Jul 28, 2024 22:33
--- NOTE | 2024-07-28 23:27 | DVHSR ---
APPROVED REPORT EXAM: LIMITED Two-dimensional and M-mode echocardiogram with Doppler and color Doppler. Blood Pressure: 119/60 mmHg INDICATION Afib with RVR RISK FACTORS Height: 70, Weight: 200 DIMENSIONS LVDd4.9 (3.8-5.7cm)LA (2D)5.0 (1.9-4.0cm)Aortic Root (2.0-3.7cm) LVDs3.6 (2.5-4.0cm)LA (MM) (1.9-4.0cm)Aortic Cusp Exc (1.5-2.0cm) EF (%) 50.0 (55-70%)Rt. Atrium4.7 (1.9-4.0cm)Asc. Aorta cm Mitral Valve MitralMitral Stenosis E/A ratio0.02D MVAcm2 Pulmonic Valve V21.18m/s Tricuspid Valve TR Velocity2.47m/s [id number] Other Information Technically limited study due to body habitus, patient position and high heart rate. Patient sitting straight up during exam. Sub view only. Conclusion 1. MODERATELY DILATED RV AND RA 2. DYSKINESIS OF IVS 3. STUDY SUGGEST RV FAILURE 4. LV EF IS 60% AND IS HYPERDYNAMIC 5. GROSSLY NORMAL VALVES NO VEGETATION ON LIMITED STUDY 6. NO EFFUSION
[2024-07-29] VITALS (38 sets, daily range): BP systolic 99–142; BP diastolic 67–95; PULSE 83–120; RESP 14–32; TEMP 97.9–99; O2SAT 93–100
[2024-07-29 05:21] LABS: Hematocrit 24.2 % (41.0-53.0); Hemoglobin 8.4 g/dL (13.5-17.5); Mean Corpuscular Hemoglobin 27.6 pg (28.0-32.0); Mean Corpuscular Hgb Conc. 34.5 g/dL (32.0-36.0); Platelet Count (auto) 174 10^3/uL (140-450); Red Blood Cells 3.03 10^6/uL (4.5-5.90); Red Cell Distribution Width 14.3 % (11.8-14.3)
[2024-07-29 05:23] LABS: Chloride 106 mmol/L (98-107); Potassium 4.4 mmol/L (3.5-5.1); Sodium 138 mmol/L (136-145)
[2024-07-29 05:24] LABS: Anion Gap 9 (5-15); Carbon Dioxide 23 mmol/L (20-31)
[2024-07-29 05:26] LABS: Band Neutrophils % (manual) 0; Basophils % (manual) 0 (0.0-2.0); Blast Cells 0; Metamyelocytes % 0; Myelocytes % 0; Promyelocytes % 0; Reactive Lymphocytes 0
[2024-07-29 05:30] LABS: BUN/Creatinine Ratio 22.1 (10.0-20.0); Blood Urea Nitrogen 15 mg/dL (9-23); Calcium 8.5 mg/dL (8.7-10.4); Glucose 111 mg/dL (74-106)
[2024-07-29 06:10] LABS: Eosinophils % (manual) 2 (0-7); Lymphocytes % (manual) 19 (10.0-50.0); Monocytes % (manual) 15 (0-12); Platelet Estimate Adequate
[2024-07-29] MEDS: AMIODARONE HCL 200 MG TAB PO SCH (09:38)
--- NOTE | 2024-07-29 10:48 | DVHPN2 ---
Progress Note - Dictate Date Seen: Jul 29, 2024 Medical Necessity Reason Pt with a Central, PICC or Fol: No Subjective Patient remains in atrial fibrillation with RVR but rate control improving. Noted to have melena again. vital signs Vital Sign Date Time Temp Pulse Resp B/P (MAP) Pulse Ox O2 Delivery O2 Flow Rate FiO2 07/29/24 10:00 108 07/29/24 10:00 20 93 Room Air* 0 21 07/29/24 09:40 139/90 07/29/24 04:00 98.9 98.9 Total Intake and Output 07/28/24 07/28/24 07/29/24 15:00 23:00 07:00 Intake Total 556.64 ml 1826.64 ml 483.32 ml Output Total 725 ml 375 ml Balance 556.64 ml 1101.64 ml 108.32 ml medications Current Medications Medications Dose Ordered Sig/Vincent Route Start Time Stop Time Status Last Admin Dose Admin Acetaminophen 325 mg Q4HP PRN PO 07/25/24 17:30 Acetaminophen/ Hydrocodone Bitart 1 tab Q4HP PRN PO 07/25/24 17:30 07/29/24 09:38 1 TAB Temazepam 15 mg QHSP PRN PO 07/25/24 17:30 07/27/24 21:14 15 MG Enoxaparin Sodium 40 mg DAILY SC 07/26/24 10:00 07/27/24 11:26 40 MG Nitroglycerin 0.4 mg Q5MINP PRN SL 07/25/24 17:30 Morphine Sulfate 2 mg Q30M PRN IV 07/25/24 17:30 Digoxin 125 mcg DAILY IV 07/26/24 07:00 07/29/24 09:40 125 MCG Phenylephrine HCl 250 ml @ 30 mls/hr Q8H20M IV 07/25/24 22:45 Enteral Nutritional Formula 240 ml BIDBL PO 07/28/24 12:00 07/29/24 09:41 240 ML Metoprolol Tartrate 25 mg BID PO 07/28/24 11:00 07/29/24 09:40 25 MG Lidocaine HCl 1 applic Q8HP PRN TOP 07/28/24 17:00 Amiodarone HCl 200 mg Q12HR PO 08/03/24 22:00 Amiodarone HCl 400 mg Q12HR PO 07/29/24 10:00 08/03/24 10:00 07/29/24 09:38 400 MG Meropenem 50 ml @ 17 mls/hr Q8HR IV 07/29/24 09:45 Pantoprazole Sodium 40 mg BID IV 07/29/24 22:00 UNV objective General appearance: No acute distress Respiratory: Lungs clear to auscultation. No wheezing, crackles Cardiovascular: Irregular rate and rhythm, no murmurs. No edema Abdomen: Soft, nondistended, nontender, bowel sounds present MSK: Normal range of motion. Neuro: Alert, no neurological deficits Psych: Appropriate mood and affect. laboratory and microbiology Laboratory Tests 07/29/24 04:47 Test 07/29/24 04:47 Range/Units Serum Glucose 111 H 74-106 mg/dL Assessment/Plan 1. Atrial Fibrillation with RVR 2. Rectal Cancer 3. Lower GIB 4. Sepsis 5. HfpEF Plan: - Cardiology consulted for atrial fibrillation RVR, Dr. Michele - TTE read suggest HFpEF - Amiodarone drip Dc and transitioned to PO. Metoprolol tartrate 25mg BID, digoxin. - Patient started on digoxin. Patient remains at uncontrolled rate. - Blood cx not clearing with staph aureus, was on vancomycin now on ceftriaxone. Escalating to merrem due to non-clearance. TTE does not show any vegetations. Possible source is Port-A-Cath but no erythema at site. -Infectious Disease consulted, Dr. Cabezas - Digoxin level pending - GI consulted due to rectal bleeding and rectal pain. Recommend xylocaine to be applied to site -2L bolus given 07/27 due to concern for sepsis. 1L bolus given 07/28. -Blood cultures repeated -Protonix 40mg IV BID for GIB. Transfusion goal Hgb>7 -PT eval ordered - Daily CBC and BMP -DNR made by POA, signed form -Plan to downgrade to telemetry once HR<120 for 24 hours. Dietary Evaluation Review Recommendations by RD: Protein Supplementation Comments: 1) Initiate Ensure Enlive bid 2) Encourage optimal PO intake 3) Follow-up with gastroenterology, oncology, and cardiology 4) Continue to monitor I&O, labs, and skin integrity Expected Outcomes/Goals: 1) appetite and labs to improve 2) GI symptoms to resolve 3) f/u in 3-5 days Plan discussed with: Patient TAHGRISELDA DELCID DO Jul 29, 2024 10:48
[2024-07-29] MEDS: MEROPENEM 1GM IVPB 50 ML IV SCH (13:23)
[2024-07-29] MEDS: PANTOPRAZOLE 40 MG/10 ML VIAL INJ IV ONE (13:24)
--- NOTE | 2024-07-29 17:32 | DVHPN2 ---
Progress Note Date Seen: Jul 29, 2024 Resident Creating Document: CARMELA RING RESIDENT Medical Necessity Reason Pt with a Central, PICC or Fol: No Subjective Review of Systems Patient had rectal bleeding at a.m., dark stool, we will continue monitoring, no acute intervention H&H is stable 8.4 / 24.2 Patient with leukopenia, WBC 2.0 today Patient on cardiac regular diet Barrier cream is being applied and lidocaine ointment prn for rectal pain Patient was seen by Cardiology On amiodarone p.o. for AFib Objective vital signs Vital Sign Date Time Temp Pulse Resp B/P (MAP) Pulse Ox O2 Delivery O2 Flow Rate FiO2 07/29/24 16:06 18 99 Room Air* 0 21 07/29/24 15:00 99 124/79 (94) 07/29/24 12:00 97.9 97.9 Total Intake and Output 07/28/24 07/28/24 07/29/24 15:00 23:00 07:00 Intake Total 556.64 ml 1826.64 ml 483.32 ml Output Total 725 ml 375 ml Balance 556.64 ml 1101.64 ml 108.32 ml medications Current Medications Medications Dose Ordered Sig/Vincent Route Start Time Stop Time Status Last Admin Dose Admin Acetaminophen 325 mg Q4HP PRN PO 07/25/24 17:30 Acetaminophen/ Hydrocodone Bitart 1 tab Q4HP PRN PO 07/25/24 17:30 07/29/24 13:25 1 TAB Temazepam 15 mg QHSP PRN PO 07/25/24 17:30 07/27/24 21:14 15 MG Enoxaparin Sodium 40 mg DAILY SC 07/26/24 10:00 07/27/24 11:26 40 MG Nitroglycerin 0.4 mg Q5MINP PRN SL 07/25/24 17:30 Morphine Sulfate 2 mg Q30M PRN IV 07/25/24 17:30 Digoxin 125 mcg DAILY IV 07/26/24 07:00 07/29/24 09:40 125 MCG Phenylephrine HCl 250 ml @ 30 mls/hr Q8H20M IV 07/25/24 22:45 Enteral Nutritional Formula 240 ml BIDBL PO 07/28/24 12:00 07/29/24 09:41 240 ML Metoprolol Tartrate 25 mg BID PO 07/28/24 11:00 07/29/24 09:40 25 MG Lidocaine HCl 1 applic Q8HP PRN TOP 07/28/24 17:00 Amiodarone HCl 200 mg Q12HR PO 08/03/24 22:00 Amiodarone HCl 400 mg Q12HR PO 07/29/24 10:00 08/03/24 10:00 07/29/24 09:38 400 MG Meropenem 50 ml @ 17 mls/hr Q8HR IV 07/29/24 09:45 07/29/24 13:23 17 MLS/HR Pantoprazole Sodium 40 mg BID IV 07/29/24 22:00 laboratory and microbiology Laboratory Tests 07/29/24 04:47 Test 07/29/24 04:47 Range/Units Serum Glucose 111 H 74-106 mg/dL Microbiology Date/Time Source Procedure Growth Status 07/28/24 16:39 Urine - [place] Urine Culture - Preliminary Resulted 07/28/24 10:20 Blood Blood Culture - Preliminary NO GROWTH AFTER 24 HOURS OF INCUBATION. Resulted 07/26/24 18:12 Nose MRSA Screen - Final Complete Problem List/Assessment/Plan Problem List/Assessment/Plan Assessment and (1) Atrial fibrillation with RVR (2) Rectal cancer (3) Dehydration (4) Rectal pain (5) Anemia (6)Leukopenia Prognosis Plan We will continue monitoring for rectal bleeding Monitor CBC Lovenox on hold due to GI bleeding Patient on cardiac regular diet Continue liquid anorectal care and sacral care Continue recommendations as per Cardiology We will continue conservative management from GI point of view Once the patient is medically stabilized follow up with Dr. Dorinda Baron with [facility] who have been following him over the last three years and arrange and evaluate for possible upcoming surgery PUD prophylaxis: Pantoprazole DVT prophylaxis: SCD Plan discussed with Dr. Dorinda Baron , nursing staff, Total time spent on patient evaluation, chart review, assessment and plan, discussion discussion >35 minutes Plan discussed with: Other (RN) Dietary Evaluation Review Recommendations by RD: Protein Supplementation Comments: 1) Initiate Ensure Enlive bid 2) Encourage optimal PO intake 3) Follow-up with gastroenterology, oncology, and cardiology 4) Continue to monitor I&O, labs, and skin integrity Expected Outcomes/Goals: 1) appetite and labs to improve 2) GI symptoms to resolve 3) f/u in 3-5 days CARMELA RING Jul 29, 2024 17:32
[2024-07-29] MEDS: PANTOPRAZOLE 40 MG/10 ML VIAL INJ IV SCH (21:51)
--- NOTE | 2024-07-29 23:13 | DVHPN2 ---
Progress Note - Dictate Date Seen: Jul 29, 2024 Medical Necessity Reason Pt with a Central, PICC or Fol: No Subjective Patient was seen and evaluated in follow up in the ICU. Patient remains in A-fib with RVR, rate control is improving. Patient having dark stools with melena. Patient being started on TPN. H&H stable. vital signs Vital Sign Date Time Temp Pulse Resp B/P (MAP) Pulse Ox O2 Delivery O2 Flow Rate FiO2 07/29/24 23:00 120 29 140/68 (92) 97 07/29/24 22:00 Room Air* 0 21 07/29/24 20:00 98.2 98.2 Total Intake and Output 07/28/24 07/28/24 07/29/24 15:00 23:00 07:00 Intake Total 556.64 ml 1826.64 ml 483.32 ml Output Total 725 ml 375 ml Balance 556.64 ml 1101.64 ml 108.32 ml medications Current Medications Medications Dose Ordered Sig/Vincent Route Start Time Stop Time Status Last Admin Dose Admin Acetaminophen 325 mg Q4HP PRN PO 07/25/24 17:30 Acetaminophen/ Hydrocodone Bitart 1 tab Q4HP PRN PO 07/25/24 17:30 07/29/24 22:55 1 TAB Temazepam 15 mg QHSP PRN PO 07/25/24 17:30 07/27/24 21:14 15 MG Enoxaparin Sodium 40 mg DAILY SC 07/26/24 10:00 07/27/24 11:26 40 MG Nitroglycerin 0.4 mg Q5MINP PRN SL 07/25/24 17:30 Morphine Sulfate 2 mg Q30M PRN IV 07/25/24 17:30 Digoxin 125 mcg DAILY IV 07/26/24 07:00 07/29/24 09:40 125 MCG Phenylephrine HCl 250 ml @ 30 mls/hr Q8H20M IV 07/25/24 22:45 Enteral Nutritional Formula 240 ml BIDBL PO 07/28/24 12:00 07/29/24 09:41 240 ML Metoprolol Tartrate 25 mg BID PO 07/28/24 11:00 07/29/24 21:51 25 MG Lidocaine HCl 1 applic Q8HP PRN TOP 07/28/24 17:00 Amiodarone HCl 200 mg Q12HR PO 08/03/24 22:00 Amiodarone HCl 400 mg Q12HR PO 07/29/24 10:00 08/03/24 10:00 07/29/24 21:50 400 MG Meropenem 50 ml @ 17 mls/hr Q8HR IV 07/29/24 09:45 07/29/24 22:16 17 MLS/HR Pantoprazole Sodium 40 mg BID IV 07/29/24 22:00 07/29/24 21:51 40 MG objective GENERAL: Alert and oriented x 3. No acute distress. EYES: PERRL, EOMI. Anicteric. HENT: Moist mucous membranes. LUNGS: Clear to auscultation bilaterally. CARDIOVASCULAR: Regular rate and rhythm. ABDOMEN: Soft, nontender and nondistended. EXTREMITIES: No edema. NEUROLOGIC: No focal neurological deficits. SKIN: Warm, dry. laboratory and microbiology Laboratory Tests 07/29/24 04:47 Test 07/29/24 04:47 Range/Units Serum Glucose 111 H 74-106 mg/dL Problem List Atrial fibrillation with RVR. Hypotension. Dehydration. Rectal pain. Anemia. Thrombocytopenia. CHF. Rectal Cancer on chemo. Lower GIB. Sepsis Assessment/Plan Continued all current supportive medical care. Echocardiogram. IV Amiodarone. IV Metoprolol. Morphine and [place] for pain management. IV antibiotics as ordered. Digoxin. DVT prophylactics. Nitro SL. Additional plan as per the hospital course. Critical care time of 45 minutes provided to include time spent evaluation of patient at bedside, when appropriate patient/family education for diagnosis, treatment plan, review of pertinent medical information and discussion of care with specialty providers and PCP. Dietary Evaluation Review Recommendations by RD: Protein Supplementation Comments: 1) Initiate Ensure Enlive bid 2) Encourage optimal PO intake 3) Follow-up with gastroenterology, oncology, and cardiology 4) Continue to monitor I&O, labs, and skin integrity Expected Outcomes/Goals: 1) appetite and labs to improve 2) GI symptoms to resolve 3) f/u in 3-5 days Plan discussed with: Patient JT ANGELES MD Jul 29, 2024 23:13
[2024-07-30] VITALS (21 sets, daily range): BP systolic 108–146; BP diastolic 69–97; PULSE 65–119; RESP 16–29; TEMP 98.1–99.4; O2SAT 96–99
[2024-07-30 05:45] LABS: Hematocrit 23.4 % (41.0-53.0); Mean Corpuscular Hemoglobin 27.4 pg (28.0-32.0); Mean Corpuscular Hgb Conc. 34.2 g/dL (32.0-36.0); Mean Corpuscular Volume 80.2 fL (80.0-100.0); Platelet Count (auto) 189 10^3/uL (140-450); Red Blood Cells 2.91 10^6/uL (4.5-5.90); Red Cell Distribution Width 14.3 % (11.8-14.3)
[2024-07-30 05:51] LABS: White Blood Cell 1.8 10^3/uL (4.4-10.8)
[2024-07-30 05:53] LABS: Basophils % (manual) 0 (0.0-2.0); Blast Cells 0; Metamyelocytes % 0; Myelocytes % 0; Promyelocytes % 0; Reactive Lymphocytes 0
[2024-07-30 05:58] LABS: Anion Gap 7 (5-15); Carbon Dioxide 23 mmol/L (20-31); Chloride 106 mmol/L (98-107); Potassium 4.2 mmol/L (3.5-5.1)
[2024-07-30 06:00] LABS: Calcium 8.5 mg/dL (8.7-10.4); Sodium 136 mmol/L (136-145)
[2024-07-30 06:04] LABS: BUN/Creatinine Ratio 22.7 (10.0-20.0); Blood Urea Nitrogen 17 mg/dL (9-23); Glucose 93 mg/dL (74-106)
[2024-07-30 08:52] LABS: Band Neutrophils % (manual) 5; Eosinophils % (manual) 1 (0-7); Lymphocytes % (manual) 18 (10.0-50.0)
[2024-07-30 08:53] LABS: Monocytes % (manual) 14 (0-12); Platelet Estimate Adequate
[2024-07-30 08:54] LABS: Large Platelets FEW
--- NOTE | 2024-07-30 11:22 | DVHPN2 ---
Progress Note - Dictate Date Seen: Jul 30, 2024 Medical Necessity Reason Pt with a Central, PICC or Fol: No Subjective Patient remains in atrial fibrillation with RVR but rate control improving. Noted to have 3 episodes of melena last night. Consented for blood transfusion if Hgb <7. vital signs Vital Sign Date Time Temp Pulse Resp B/P (MAP) Pulse Ox O2 Delivery O2 Flow Rate FiO2 07/30/24 11:09 102 127/70 07/30/24 10:00 16 96 Room Air* 0 21 07/30/24 08:00 98.7 98.7 Total Intake and Output 07/29/24 07/29/24 07/30/24 15:00 23:00 07:00 Intake Total 100 ml 1000 ml 550 ml Output Total 300 ml 250 ml Balance 100 ml 700 ml 300 ml medications Current Medications Medications Dose Ordered Sig/Vincent Route Start Time Stop Time Status Last Admin Dose Admin Acetaminophen 325 mg Q4HP PRN PO 07/25/24 17:30 Temazepam 15 mg QHSP PRN PO 07/25/24 17:30 07/27/24 21:14 15 MG Nitroglycerin 0.4 mg Q5MINP PRN SL 07/25/24 17:30 Morphine Sulfate 2 mg Q30M PRN IV 07/25/24 17:30 Digoxin 125 mcg DAILY IV 07/26/24 07:00 07/30/24 09:10 125 MCG Phenylephrine HCl 250 ml @ 30 mls/hr Q8H20M IV 07/25/24 22:45 Enteral Nutritional Formula 240 ml BIDBL PO 07/28/24 12:00 07/30/24 09:10 240 ML Metoprolol Tartrate 25 mg BID PO 07/28/24 11:00 07/30/24 09:09 25 MG Lidocaine HCl 1 applic Q8HP PRN TOP 07/28/24 17:00 Amiodarone HCl 200 mg Q12HR PO 08/03/24 22:00 Amiodarone HCl 400 mg Q12HR PO 07/29/24 10:00 08/03/24 10:00 07/30/24 09:09 400 MG Meropenem 50 ml @ 17 mls/hr Q8HR IV 07/29/24 09:45 07/30/24 06:01 17 MLS/HR Pantoprazole Sodium 40 mg BID IV 07/29/24 22:00 07/30/24 09:08 40 MG Acetaminophen/ Hydrocodone Bitart 1 tab Q4HP PRN PO 07/30/24 11:00 objective General appearance: No acute distress Respiratory: Lungs clear to auscultation. No wheezing, crackles Cardiovascular: Irregular rate and rhythm, no murmurs. No edema Abdomen: Soft, nondistended, nontender, bowel sounds present MSK: Normal range of motion. Neuro: Alert, no neurological deficits Psych: Appropriate mood and affect. laboratory and microbiology Laboratory Tests 07/30/24 05:00 Test 07/30/24 05:00 Range/Units Serum Glucose 93 74-106 mg/dL Assessment/Plan 1. Atrial Fibrillation with RVR 2. Rectal Cancer 3. Lower GIB 4. Sepsis 5. HfpEF 6. Leukopenia, medication inducede Plan: - Cardiology consulted for atrial fibrillation RVR, Dr. Michele - TTE read suggest HFpEF - Amiodarone drip Dc and transitioned to PO. Metoprolol tartrate 25mg BID, digoxin. - Patient started on digoxin. - Blood cultures now clearing staph aureus on Merrem but now has leukopenia, likely due to Merrem. TTE does not show any vegetations. Possible source is Port-A-Cath but no erythema at site. -Infectious Disease consulted, Dr. Cabezas. Will discuss change of AB due to leukopenia. - GI consulted due to rectal bleeding and rectal pain. Recommend xylocaine to be applied to site -2L bolus given 07/27 due to concern for sepsis. 1L bolus given 07/28. -Protonix 40mg IV BID for GIB. Transfusion goal Hgb>7. Consented for blood transfusion. Patient would likely to think over. -PT eval ordered - Daily CBC and BMP -DNR made by POA, signed form -Downgrade to telemetry -Pain medication increased Dietary Evaluation Review Recommendations by RD: Protein Supplementation Comments: 1) Initiate Ensure Enlive bid 2) Encourage optimal PO intake 3) Follow-up with gastroenterology, oncology, and cardiology 4) Continue to monitor I&O, labs, and skin integrity Expected Outcomes/Goals: 1) appetite and labs to improve 2) GI symptoms to resolve 3) f/u in 3-5 days Plan discussed with: Patient NAGIJORDIGRISELDA Lopez DO Jul 30, 2024 11:22
[2024-07-30] MEDS: HYDROcodone-ACET 10/325MG TAB PO PRN (13:24)
[2024-07-30] MEDS: LIDOCAINE HCL 5 % TOP OINT 35 GM TOP PRN (14:41)
--- NOTE | 2024-07-30 17:12 | DVHPN2 ---
Progress Note Date Seen: Jul 30, 2024 Resident Creating Document: CARMELA RING RESIDENT Medical Necessity Reason Pt with a Central, PICC or Fol: No Subjective Review of Systems Patient had bowel movement with the dark blood with a Hemoglobin 8.0 today WBC 20 down to 1.9 Patient on cardiac diet Patient was seen by Cardiology yesterday, AFib with a RVR, rate control is improving Objective vital signs Vital Sign Date Time Temp Pulse Resp B/P (MAP) Pulse Ox O2 Delivery O2 Flow Rate FiO2 07/30/24 14:45 98.2 65 17 114/73 (87) 98 98.2 07/30/24 10:00 Room Air* 0 21 Total Intake and Output 07/29/24 07/29/24 07/30/24 15:00 23:00 07:00 Intake Total 100 ml 1000 ml 550 ml Output Total 300 ml 250 ml Balance 100 ml 700 ml 300 ml medications Current Medications Medications Dose Ordered Sig/Vincent Route Start Time Stop Time Status Last Admin Dose Admin Acetaminophen 325 mg Q4HP PRN PO 07/25/24 17:30 Temazepam 15 mg QHSP PRN PO 07/25/24 17:30 07/27/24 21:14 15 MG Nitroglycerin 0.4 mg Q5MINP PRN SL 07/25/24 17:30 Morphine Sulfate 2 mg Q30M PRN IV 07/25/24 17:30 Digoxin 125 mcg DAILY IV 07/26/24 07:00 07/30/24 09:10 125 MCG Phenylephrine HCl 250 ml @ 30 mls/hr Q8H20M IV 07/25/24 22:45 Hold Enteral Nutritional Formula 240 ml BIDBL PO 07/28/24 12:00 07/30/24 12:00 240 ML Metoprolol Tartrate 25 mg BID PO 07/28/24 11:00 07/30/24 09:09 25 MG Lidocaine HCl 1 applic Q8HP PRN TOP 07/28/24 17:00 07/30/24 14:41 1 APPLIC Amiodarone HCl 200 mg Q12HR PO 08/03/24 22:00 Amiodarone HCl 400 mg Q12HR PO 07/29/24 10:00 08/03/24 10:00 07/30/24 09:09 400 MG Meropenem 50 ml @ 17 mls/hr Q8HR IV 07/29/24 09:45 07/30/24 13:28 17 MLS/HR Pantoprazole Sodium 40 mg BID IV 07/29/24 22:00 07/30/24 09:08 40 MG Acetaminophen/ Hydrocodone Bitart 1 tab Q4HP PRN PO 07/30/24 11:00 07/30/24 13:24 1 TAB laboratory and microbiology Laboratory Tests 07/30/24 05:00 Test 07/30/24 05:00 Range/Units Serum Glucose 93 74-106 mg/dL Microbiology Date/Time Source Procedure Growth Status 07/29/24 10:35 Blood Blood Culture - Preliminary NO GROWTH AFTER 24 HOURS OF INCUBATION. Resulted 07/28/24 16:39 Urine - [place] Urine Culture - Final Complete 07/26/24 18:12 Nose MRSA Screen - Final Complete Problem List/Assessment/Plan Problem List/Assessment/Plan Assessment and (1) Atrial fibrillation with RVR (2) Rectal cancer (3) Dehydration (4) Rectal pain (5) Anemia (6)Leukopenia Prognosis Plan Monitor CBC Plan is to do blood transfusion if hemoglobin< 7 We will continue monitoring for rectal bleeding Monitor CBC Lovenox on hold due to GI bleeding Patient on cardiac regular diet Continue liquid anorectal care and sacral care Continue recommendations as per Cardiology We will continue conservative management from GI point of view Once the patient is medically stabilized follow up with Dr. Dorinda Baron with [facility] who have been following him over the last three years and arrange and evaluate for possible upcoming surgery PUD prophylaxis: Pantoprazole DVT prophylaxis: SCD Plan discussed with Dr. Dorinda Baron , nursing staff, Total time spent on patient evaluation, chart review, assessment and plan, discussion discussion >35 minutes Plan discussed with: Other (RN) My Orders My Orders Orders - CARMELA RING Procedure Category Date Status Time Sequential ELSI 07/29/24 In Process Compression Device 17:22 Dietary Evaluation Review Recommendations by RD: Protein Supplementation Comments: 1) Initiate Ensure Enlive bid 2) Encourage optimal PO intake 3) Follow-up with gastroenterology, oncology, and cardiology 4) Continue to monitor I&O, labs, and skin integrity Expected Outcomes/Goals: 1) appetite and labs to improve 2) GI symptoms to resolve 3) f/u in 3-5 days CARMELA RING RESIDENT Jul 30, 2024 17:11
--- NOTE | 2024-07-30 19:11 | DVHPNRES ---
Progress Note Date Seen: Jul 30, 2024 Resident Creating Document: GLORIA BRODY RESIDENT Medical Necessity Reason Pt with a Central, PICC or Fol: No Subjective Review of Systems Patient remains in atrial fibrillation with RVR but rate control improving. Noted to have 3 episodes of melena last night. Consented for blood transfusion if Hgb <7. Objective vital signs Vital Sign Date Time Temp Pulse Resp B/P (MAP) Pulse Ox O2 Delivery O2 Flow Rate FiO2 07/30/24 17:00 98.2 69 17 123/83 (96) 99 98.2 07/30/24 10:00 Room Air* 0 21 Total Intake and Output 07/29/24 07/29/24 07/30/24 14:59 22:59 06:59 Intake Total 100 ml 1000 ml 550 ml Output Total 300 ml 250 ml Balance 100 ml 700 ml 300 ml medications Current Medications Medications Dose Ordered Sig/Vincent Route Start Time Stop Time Status Last Admin Dose Admin Acetaminophen 325 mg Q4HP PRN PO 07/25/24 17:30 Temazepam 15 mg QHSP PRN PO 07/25/24 17:30 07/27/24 21:14 15 MG Nitroglycerin 0.4 mg Q5MINP PRN SL 07/25/24 17:30 Morphine Sulfate 2 mg Q30M PRN IV 07/25/24 17:30 Digoxin 125 mcg DAILY IV 07/26/24 07:00 07/30/24 09:10 125 MCG Phenylephrine HCl 250 ml @ 30 mls/hr Q8H20M IV 07/25/24 22:45 Hold Enteral Nutritional Formula 240 ml BIDBL PO 07/28/24 12:00 07/30/24 12:00 240 ML Metoprolol Tartrate 25 mg BID PO 07/28/24 11:00 07/30/24 09:09 25 MG Lidocaine HCl 1 applic Q8HP PRN TOP 07/28/24 17:00 07/30/24 14:41 1 APPLIC Amiodarone HCl 200 mg Q12HR PO 08/03/24 22:00 Amiodarone HCl 400 mg Q12HR PO 07/29/24 10:00 08/03/24 10:00 07/30/24 09:09 400 MG Meropenem 50 ml @ 17 mls/hr Q8HR IV 07/29/24 09:45 07/30/24 13:28 17 MLS/HR Pantoprazole Sodium 40 mg BID IV 07/29/24 22:00 07/30/24 09:08 40 MG Acetaminophen/ Hydrocodone Bitart 1 tab Q4HP PRN PO 07/30/24 11:00 07/30/24 13:24 1 TAB Examination General appearance: No acute distress Respiratory: Lungs clear to auscultation. No wheezing, crackles Cardiovascular: Irregular rate and rhythm, no murmurs. No edema Abdomen: Soft, nondistended, nontender, bowel sounds present MSK: Normal range of motion. Neuro: Alert, no neurological deficits Psych: Appropriate mood and affect. laboratory and microbiology Laboratory Tests 07/30/24 05:00 Test 07/30/24 05:00 Range/Units Serum Glucose 93 74-106 mg/dL Microbiology Date/Time Source Procedure Growth Status 07/29/24 10:35 Blood Blood Culture - Preliminary NO GROWTH AFTER 24 HOURS OF INCUBATION. Resulted 07/28/24 16:39 Urine - [place] Urine Culture - Final Complete 07/26/24 18:12 Nose MRSA Screen - Final Complete Labs and/or images reviewed: Labs reviewed by me, Image(s) reviewed by me Problem List/Assessment/Plan Problem List/Assessment/Plan Atrial fibrillation with RVR. Hypotension. Dehydration. Rectal pain. Anemia. Thrombocytopenia. CHF. Rectal Cancer on chemo. Lower GIB. Sepsis Assessment/Plan Continued all current supportive medical care. ID recommends transesophageal echocardiogram, patient is scheduled for tomorrow a.m. NPO after midnight IV Amiodarone. IV Metoprolol. Morphine and [place] for pain management. IV antibiotics as ordered. Digoxin. DVT prophylactics. Nitro SL. Additional plan as per the hospital course. Thank you so much for the opportunity to consult on your patient. Cardiology team will follow the patient. In case of any questions or concerns please feel free to reach out. Plan discussed with Dr. Angeles Plan discussed with: Patient, Other (RN) My Orders My Orders Orders - GLORIA BRODY RESIDENT Procedure Category Date Status Time Echo Dony Complete BD 07/31/24 Verified 08:00 Npo After Midnight ELSI 07/30/24 Verified 19:00 Npo (Nothing By DIET 07/31/24 Verified Mouth) Diet Breakfast Obtain Consent For: ORDERS 07/30/24 Verified 19:00 Obtain Consent For ELSI 07/30/24 Verified Anesthesia 19:00 Dietary Evaluation Review Recommendations by RD: Protein Supplementation Comments: 1) Initiate Ensure Enlive bid 2) Encourage optimal PO intake 3) Follow-up with gastroenterology, oncology, and cardiology 4) Continue to monitor I&O, labs, and skin integrity Expected Outcomes/Goals: 1) appetite and labs to improve 2) GI symptoms to resolve 3) f/u in 3-5 days Visit Coding Cardiology RES Date of Service: Jul 30, 2024 Billing Provider: JT ANGELES MD Cardiology Common Codes: [id number] INP/OBS CARE (High) GLORIA BRODY RESIDENT Jul 30, 2024 19:10
--- NOTE | 2024-07-30 23:41 | DVHPN2 ---
Consult Progress Note Date Seen: Jul 30, 2024 Subjective Other Systems: Patient was seen and evaluated in follow up. Patient downgraded to tele bed. Patient remains in atrial fibrillation with RVR but rate control improving. Noted to have 3 episodes of melena last night. Consented for blood transfusion if Hgb <7. WBC 1.8, HGB 8, HCT 23.4. Telemetry reviewed. Objective vital signs Vital Sign Date Time Temp Pulse Resp B/P (MAP) Pulse Ox O2 Delivery O2 Flow Rate FiO2 07/30/24 21:29 116 146/97 07/30/24 21:00 98.9 20 98 98.9 07/30/24 20:00 Room Air* 0 21 Total Intake and Output 07/29/24 07/29/24 07/30/24 14:59 22:59 06:59 Intake Total 100 ml 1000 ml 550 ml Output Total 300 ml 250 ml Balance 100 ml 700 ml 300 ml medications Current Medications Medications Dose Ordered Sig/Vincent Route Start Time Stop Time Status Last Admin Dose Admin Acetaminophen 325 mg Q4HP PRN PO 07/25/24 17:30 Temazepam 15 mg QHSP PRN PO 07/25/24 17:30 07/27/24 21:14 15 MG Nitroglycerin 0.4 mg Q5MINP PRN SL 07/25/24 17:30 Morphine Sulfate 2 mg Q30M PRN IV 07/25/24 17:30 Digoxin 125 mcg DAILY IV 07/26/24 07:00 07/30/24 09:10 125 MCG Phenylephrine HCl 250 ml @ 30 mls/hr Q8H20M IV 07/25/24 22:45 Hold Enteral Nutritional Formula 240 ml BIDBL PO 07/28/24 12:00 07/30/24 12:00 240 ML Metoprolol Tartrate 25 mg BID PO 07/28/24 11:00 07/30/24 21:29 25 MG Lidocaine HCl 1 applic Q8HP PRN TOP 07/28/24 17:00 07/30/24 14:41 1 APPLIC Amiodarone HCl 200 mg Q12HR PO 08/03/24 22:00 Amiodarone HCl 400 mg Q12HR PO 07/29/24 10:00 08/03/24 10:00 07/30/24 21:28 400 MG Pantoprazole Sodium 40 mg BID IV 07/29/24 22:00 07/30/24 21:28 40 MG Acetaminophen/ Hydrocodone Bitart 1 tab Q4HP PRN PO 07/30/24 11:00 07/30/24 13:24 1 TAB Examination: GENERAL:Normal, HEENT:Normal, NECK:Normal, LUNGS:Normal, CVS:Abnormal (Irregular rate and rhythm), ABDOMEN:Normal, MSK:Normal, SKIN:Normal laboratory and microbiology Laboratory Tests 07/30/24 05:00 Test 07/30/24 05:00 Range/Units Serum Glucose 93 74-106 mg/dL Problem List/Assessment/Plan Problem List/Assessment/Plan Atrial fibrillation with RVR. Hypotension. Dehydration. Rectal pain. Anemia. Thrombocytopenia. CHF. Rectal Cancer on chemo. Lower GIB. Sepsis Assessment/Plan Continued all current supportive medical care. Patient has been seen by Roselia Connor, resident on my behalf. We have discussed the plan with the patient. ID recommends transesophageal echocardiogram, patient is scheduled for tomorrow a.m. NPO after midnight IV Amiodarone. IV Metoprolol. Morphine and [place] for pain management. IV antibiotics as ordered. Digoxin. DVT prophylactics. Nitro SL. Additional plan as per the hospital course. Plan discussed with: Patient Dietary Evaluation Review Recommendations by RD: Protein Supplementation Comments: 1) Initiate Ensure Enlive bid 2) Encourage optimal PO intake 3) Follow-up with gastroenterology, oncology, and cardiology 4) Continue to monitor I&O, labs, and skin integrity Expected Outcomes/Goals: 1) appetite and labs to improve 2) GI symptoms to resolve 3) f/u in 3-5 days Date of Service: Jul 30, 2024 Billing Provider: JT ANGELES MD Cardiology Common Codes: [id number] INP/OBS CARE (High) JT ANGELES MD Jul 30, 2024 23:41
[2024-07-31] VITALS (12 sets, daily range): BP systolic 110–163; BP diastolic 71–106; PULSE 87–111; RESP 16–20; TEMP 98.2–99.3; O2SAT 96–100
[2024-07-31] MEDS: hydrALAZINE HCL 20 MG/ML VL IV PRN (03:24)
[2024-07-31] MEDS: ceFAZolin 2 GM/D5W50ml 50 ML IV SCH (06:04)
[2024-07-31 06:40] LABS: Red Cell Distribution Width 14.4 % (11.8-14.3); White Blood Cell 2.9 10^3/uL (4.4-10.8)
[2024-07-31 06:43] LABS: Hematocrit 23.2 % (41.0-53.0); Mean Corpuscular Hemoglobin 27.4 pg (28.0-32.0); Mean Corpuscular Hgb Conc. 34.3 g/dL (32.0-36.0); Mean Corpuscular Volume 79.8 fL (80.0-100.0); Platelet Count (auto) 205 10^3/uL (140-450); Red Blood Cells 2.91 10^6/uL (4.5-5.90)
[2024-07-31 06:56] LABS: Basophils % (manual) 0 (0.0-2.0); Blast Cells 0; Eosinophils % (manual) 0 (0-7); Metamyelocytes % 0; Myelocytes % 0; Promyelocytes % 0; Reactive Lymphocytes 0
[2024-07-31 08:09] LABS: Band Neutrophils % (manual) 4; Lymphocytes % (manual) 19 (10.0-50.0); Monocytes % (manual) 10 (0-12)
[2024-07-31 08:10] LABS: Platelet Estimate Adequate
[2024-07-31] MEDS: LIDOCAINE VISCOUS 2% 15ML UD PO ONE (09:53)
[2024-07-31] MEDS: MIDAZOLAM HCL 2MG/2ML 2ml VIAL (1mg/ml) IV ONE (09:58)
[2024-07-31] MEDS: fentaNYL CITRATE 100 MCG/2 ML VL IV ONE (10:00)
--- NOTE | 2024-07-31 12:35 | DVHPNRES ---
Progress Note Date Seen: Jul 31, 2024 Resident Creating Document: GLORIA BRODY RESIDENT Medical Necessity Reason Pt with a Central, PICC or Fol: No Subjective Review of Systems Notes having 3 bowel movements over the last 20 hours, all watery and runny. AO x3. All other review of systems negative. Objective vital signs Vital Sign Date Time Temp Pulse Resp B/P (MAP) Pulse Ox O2 Delivery O2 Flow Rate FiO2 07/31/24 12:09 88 124/72 07/31/24 11:24 16 99 07/31/24 09:00 98.3 98.3 07/30/24 20:00 Room Air* 0 21 Total Intake and Output 07/30/24 07/30/24 07/31/24 15:00 23:00 07:00 Intake Total 50 ml 0 ml Output Total 500 ml 600 ml Balance -450 ml -600 ml medications Current Medications Medications Dose Ordered Sig/Vincent Route Start Time Stop Time Status Last Admin Dose Admin Acetaminophen 325 mg Q4HP PRN PO 07/25/24 17:30 Temazepam 15 mg QHSP PRN PO 07/25/24 17:30 07/27/24 21:14 15 MG Nitroglycerin 0.4 mg Q5MINP PRN SL 07/25/24 17:30 Morphine Sulfate 2 mg Q30M PRN IV 07/25/24 17:30 Digoxin 125 mcg DAILY IV 07/26/24 07:00 07/31/24 12:05 125 MCG Phenylephrine HCl 250 ml @ 30 mls/hr Q8H20M IV 07/25/24 22:45 Hold Enteral Nutritional Formula 240 ml BIDBL PO 07/28/24 12:00 07/31/24 12:14 240 ML Metoprolol Tartrate 25 mg BID PO 07/28/24 11:00 07/31/24 12:09 25 MG Lidocaine HCl 1 applic Q8HP PRN TOP 07/28/24 17:00 07/30/24 14:41 1 APPLIC Amiodarone HCl 200 mg Q12HR PO 08/03/24 22:00 Amiodarone HCl 400 mg Q12HR PO 07/29/24 10:00 08/03/24 10:00 07/31/24 12:04 400 MG Pantoprazole Sodium 40 mg BID IV 07/29/24 22:00 07/31/24 12:04 40 MG Acetaminophen/ Hydrocodone Bitart 1 tab Q4HP PRN PO 07/30/24 11:00 07/31/24 03:23 1 TAB Hydralazine HCl 10 mg Q6HP PRN IV 07/31/24 00:45 07/31/24 03:24 10 MG Cefazolin Sodium/ Dextrose 50 ml @ 50 mls/hr Q8HR IV 07/31/24 06:00 07/31/24 06:04 50 MLS/HR Examination GENERAL: Alert and oriented x 3. No acute distress. Dry Mucous membranes EYES: PERRL, EOMI. Anicteric. HENT: Moist mucous membranes. LUNGS: Clear to auscultation bilaterally. CARDIOVASCULAR: Regular rate and rhythm. ABDOMEN: Soft, nontender and nondistended. EXTREMITIES: No edema. NEUROLOGIC: No focal neurological deficits. SKIN: Warm, dry. laboratory and microbiology Laboratory Tests 07/31/24 06:22 07/30/24 05:00 Test 07/30/24 05:00 Range/Units Serum Glucose 93 74-106 mg/dL Microbiology Date/Time Source Procedure Growth Status 07/29/24 10:35 Blood Blood Culture - Preliminary NO GROWTH AFTER 48 HOURS OF INCUBATION. Resulted 07/28/24 16:39 Urine - [place] Urine Culture - Final Complete 07/26/24 18:12 Nose MRSA Screen - Final Complete Labs and/or images reviewed: Labs reviewed by me, Image(s) reviewed by me Problem List/Assessment/Plan Problem List/Assessment/Plan Atrial fibrillation with RVR. Heart failure with preserved ejection fraction, NYHA a I-II Hypotension. Dehydration. Rectal pain. Anemia likely secondary to rectal bleeding Thrombocytopenia. CHF. Rectal Cancer on chemo. Lower GIB. Sepsis Assessment/Plan Continued all current supportive medical care. Patient completed transesophageal echocardiogram, no vegetations no thrombus noted Echocardiogram shows moderately dilated RV and RA. Dyskinesis of interventricular septum. RV failure. EF 60% and hyperdynamic. IV Amiodarone. IV Metoprolol. Morphine and [place] for pain management. IV antibiotics as ordered. Digoxin. DVT prophylactics. Nitro SL. Additional plan as per the hospital course. Thank you so much for the opportunity to consult on your patient. Cardiology team will follow the patient. In case of any questions or concerns please feel free to reach out. Plan discussed with Dr. Michele Plan discussed with: Patient, Other (RN) My Orders My Orders Orders - GLORIA BRODY Procedure Category Date Status Time Echo Dony Complete BD 07/31/24 Transmitted 08:00 Obtain Consent For: ORDERS 07/30/24 Transmitted 19:00 Obtain Consent For ELSI 07/30/24 In Process Anesthesia 19:00 Dietary Evaluation Review Recommendations by RD: Protein Supplementation Comments: 1) Initiate Ensure Enlive bid 2) Encourage optimal PO intake 3) Follow-up with gastroenterology, oncology, and cardiology 4) Continue to monitor I&O, labs, and skin integrity Expected Outcomes/Goals: 1) appetite and labs to improve 2) GI symptoms to resolve 3) f/u in 3-5 days Visit Coding Cardiology RES Date of Service: Jul 31, 2024 Billing Provider: JT MICHELE MD Cardiology Common Codes: [id number] HOSP CARE(GLORIA Cornejo RESIDENT Jul 31, 2024 12:35
[2024-07-31 15:46] LABS: INR 1.18 (0.9-1.15); Prothrombin Time 12.3 sec (9.3-11.8)
--- NOTE | 2024-07-31 15:47 | DVHPN2 ---
Progress Note - Dictate Date Seen: Jul 31, 2024 Medical Necessity Reason Pt with a Central, PICC or Fol: No Subjective Discussed findings of SIMONE with patient (negative). Discussed need for SNF for doctor of naturopathic medicine IV antibiotics and need for PICC line. Patient agreeable. vital signs Vital Sign Date Time Temp Pulse Resp B/P (MAP) Pulse Ox O2 Delivery O2 Flow Rate FiO2 07/31/24 13:00 98.2 87 16 124/82 (96) 99 98.2 07/31/24 08:00 Room Air* 0 21 Total Intake and Output 07/30/24 07/30/24 07/31/24 15:00 23:00 07:00 Intake Total 50 ml 0 ml Output Total 500 ml 600 ml Balance -450 ml -600 ml medications Current Medications Medications Dose Ordered Sig/Vincent Route Start Time Stop Time Status Last Admin Dose Admin Acetaminophen 325 mg Q4HP PRN PO 07/25/24 17:30 Temazepam 15 mg QHSP PRN PO 07/25/24 17:30 07/27/24 21:14 15 MG Nitroglycerin 0.4 mg Q5MINP PRN SL 07/25/24 17:30 Morphine Sulfate 2 mg Q30M PRN IV 07/25/24 17:30 Digoxin 125 mcg DAILY IV 07/26/24 07:00 07/31/24 12:05 125 MCG Phenylephrine HCl 250 ml @ 30 mls/hr Q8H20M IV 07/25/24 22:45 Hold Enteral Nutritional Formula 240 ml BIDBL PO 07/28/24 12:00 07/31/24 12:14 240 ML Metoprolol Tartrate 25 mg BID PO 07/28/24 11:00 07/31/24 12:09 25 MG Lidocaine HCl 1 applic Q8HP PRN TOP 07/28/24 17:00 07/30/24 14:41 1 APPLIC Amiodarone HCl 200 mg Q12HR PO 08/03/24 22:00 Amiodarone HCl 400 mg Q12HR PO 07/29/24 10:00 08/03/24 10:00 07/31/24 12:04 400 MG Pantoprazole Sodium 40 mg BID IV 07/29/24 22:00 07/31/24 12:04 40 MG Acetaminophen/ Hydrocodone Bitart 1 tab Q4HP PRN PO 07/30/24 11:00 07/31/24 03:23 1 TAB Hydralazine HCl 10 mg Q6HP PRN IV 07/31/24 00:45 07/31/24 03:24 10 MG Cefazolin Sodium/ Dextrose 50 ml @ 50 mls/hr Q8HR IV 07/31/24 06:00 07/31/24 15:08 50 MLS/HR objective Psych: Appropriate mood and affect laboratory and microbiology Laboratory Tests 07/31/24 06:22 07/30/24 05:00 Test 07/30/24 05:00 Range/Units Serum Glucose 93 74-106 mg/dL Assessment/Plan 1. Atrial Fibrillation with RVR 2. Rectal Cancer 3. Lower GIB 4. Sepsis 5. HfpEF 6. Leukopenia, medication induced from Merrem-resolved Plan: - Cardiology consulted for atrial fibrillation RVR, Dr. Michele - TTE read suggest HFpEF - Amiodarone drip Dc and transitioned to PO. Metoprolol tartrate 25mg BID, digoxin. - Patient started on digoxin. - Blood cultures now clearing staph aureus on Merrem but now has leukopenia, likely due to Merrem. TTE does not show any vegetations. Possible source is Port-A-Cath but no erythema at site. SIMONE done negative for vegetations, clots. -Infectious Disease consulted, Dr. Cabezas. Recommend cefazolin on DC for 6 weeks. - GI consulted due to rectal bleeding and rectal pain. Recommend xylocaine to be applied to site -2L bolus given 07/27 due to concern for sepsis. 1L bolus given 07/28. -Protonix 40mg IV BID for GIB. Transfusion goal Hgb>7. Consented for blood transfusion. Patient would likely to think over. -PT eval ordered. Recommend rehab for patient - Daily CBC and BMP -DNR made by POA, signed form -Plan to DC to SNF for IV AB once PICC line placed. Dietary Evaluation Review Recommendations by RD: Protein Supplementation Comments: 1) Initiate Ensure Enlive bid 2) Encourage optimal PO intake 3) Follow-up with gastroenterology, oncology, and cardiology 4) Continue to monitor I&O, labs, and skin integrity Expected Outcomes/Goals: 1) appetite and labs to improve 2) GI symptoms to resolve 3) f/u in 3-5 days Plan discussed with: Patient GRISELDA ALANIZ John DO Jul 31, 2024 15:46
--- NOTE | 2024-07-31 16:42 | DVHPN2 ---
Progress Note Date Seen: Jul 31, 2024 Resident Creating Document: CARMELA RING RESIDENT Medical Necessity Reason Pt with a Central, PICC or Fol: No Subjective Review of Systems Patient reported ongoing bowel movement with dark blood stool Patient is seen by Cardiology Patient on AFib with RVR H&H stable WBC today 2.9 Objective vital signs Vital Sign Date Time Temp Pulse Resp B/P (MAP) Pulse Ox O2 Delivery O2 Flow Rate FiO2 07/31/24 13:00 98.2 87 16 124/82 (96) 99 98.2 07/31/24 08:00 Room Air* 0 21 Total Intake and Output 07/30/24 07/30/24 07/31/24 15:00 23:00 07:00 Intake Total 50 ml 0 ml Output Total 500 ml 600 ml Balance -450 ml -600 ml medications Current Medications Medications Dose Ordered Sig/Vincent Route Start Time Stop Time Status Last Admin Dose Admin Acetaminophen 325 mg Q4HP PRN PO 07/25/24 17:30 Temazepam 15 mg QHSP PRN PO 07/25/24 17:30 07/27/24 21:14 15 MG Nitroglycerin 0.4 mg Q5MINP PRN SL 07/25/24 17:30 Morphine Sulfate 2 mg Q30M PRN IV 07/25/24 17:30 Digoxin 125 mcg DAILY IV 07/26/24 07:00 07/31/24 12:05 125 MCG Phenylephrine HCl 250 ml @ 30 mls/hr Q8H20M IV 07/25/24 22:45 Hold Enteral Nutritional Formula 240 ml BIDBL PO 07/28/24 12:00 07/31/24 12:14 240 ML Metoprolol Tartrate 25 mg BID PO 07/28/24 11:00 07/31/24 12:09 25 MG Lidocaine HCl 1 applic Q8HP PRN TOP 07/28/24 17:00 07/30/24 14:41 1 APPLIC Amiodarone HCl 200 mg Q12HR PO 08/03/24 22:00 Amiodarone HCl 400 mg Q12HR PO 07/29/24 10:00 08/03/24 10:00 07/31/24 12:04 400 MG Pantoprazole Sodium 40 mg BID IV 07/29/24 22:00 07/31/24 12:04 40 MG Acetaminophen/ Hydrocodone Bitart 1 tab Q4HP PRN PO 07/30/24 11:00 07/31/24 03:23 1 TAB Hydralazine HCl 10 mg Q6HP PRN IV 07/31/24 00:45 07/31/24 03:24 10 MG Cefazolin Sodium/ Dextrose 50 ml @ 50 mls/hr Q8HR IV 07/31/24 06:00 07/31/24 15:08 50 MLS/HR laboratory and microbiology Laboratory Tests 07/31/24 06:22 07/30/24 05:00 Test 07/30/24 05:00 Range/Units Serum Glucose 93 74-106 mg/dL Microbiology Date/Time Source Procedure Growth Status 07/29/24 10:35 Blood Blood Culture - Preliminary NO GROWTH AFTER 48 HOURS OF INCUBATION. Resulted 07/28/24 16:39 Urine - [place] Urine Culture - Final Complete 07/26/24 18:12 Nose MRSA Screen - Final Complete Problem List/Assessment/Plan Problem List/Assessment/Plan Assessment and (1) Atrial fibrillation with RVR (2) Rectal cancer (3) Dehydration (4) Rectal pain (5) Anemia (6)Leukopenia EVENTS Patient reported ongoing bowel movement with dark blood stool Patient is seen by Cardiology Patient on AFib with RVR H&H stable WBC today 2.9 Prognosis Plan Plan can be discharged and follow up with [facility] for further care of the anorectal carcinoma once AFib with a RVR is well controlled, and H&H stable Monitor CBC Plan is to do blood transfusion if hemoglobin< 7 We will continue monitoring for rectal bleeding Monitor CBC Lovenox on hold due to GI bleeding Patient on cardiac regular diet Continue liquid anorectal care and sacral care Continue recommendations as per Cardiology We will continue conservative management from GI point of view Once the patient is medically stabilized follow up with Dr. Dorinda Baron with [facility] who have been following him over the last three years and arrange and evaluate for possible upcoming surgery PUD prophylaxis: Pantoprazole DVT prophylaxis: SCD Plan discussed with Dr. Dorinda Baron , nursing staff, Total time spent on patient evaluation, chart review, assessment and plan, discussion discussion >35 minutes Plan discussed with: Patient, Other (RN) Dietary Evaluation Review Recommendations by RD: Protein Supplementation Comments: 1) Initiate Ensure Enlive bid 2) Encourage optimal PO intake 3) Follow-up with gastroenterology, oncology, and cardiology 4) Continue to monitor I&O, labs, and skin integrity Expected Outcomes/Goals: 1) appetite and labs to improve 2) GI symptoms to resolve 3) f/u in 3-5 days CARMELA RING RESIDENT Jul 31, 2024 16:42
--- NOTE | 2024-07-31 17:26 | DVHPN2 ---
Consult Progress Note Date Seen: Jul 31, 2024 Subjective Other Systems: Patient was seen and evaluated in follow up. Patient reports having 3 bowel movements over the last 20 hours, all watery and runny. Patient completed transesophageal echocardiogram, no vegetations no thrombus noted Echocardiogram shows moderately dilated RV and RA. Dyskinesis of interventricular septum. RV failure. EF 60% and hyperdynamic. Telemetry reviewed. Objective vital signs Vital Sign Date Time Temp Pulse Resp B/P (MAP) Pulse Ox O2 Delivery O2 Flow Rate FiO2 07/31/24 13:00 98.2 87 16 124/82 (96) 99 98.2 07/31/24 08:00 Room Air* 0 21 Total Intake and Output 07/30/24 07/30/24 07/31/24 15:00 23:00 07:00 Intake Total 50 ml 0 ml Output Total 500 ml 600 ml Balance -450 ml -600 ml medications Current Medications Medications Dose Ordered Sig/Vincent Route Start Time Stop Time Status Last Admin Dose Admin Acetaminophen 325 mg Q4HP PRN PO 07/25/24 17:30 Temazepam 15 mg QHSP PRN PO 07/25/24 17:30 07/27/24 21:14 15 MG Nitroglycerin 0.4 mg Q5MINP PRN SL 07/25/24 17:30 Morphine Sulfate 2 mg Q30M PRN IV 07/25/24 17:30 Digoxin 125 mcg DAILY IV 07/26/24 07:00 07/31/24 12:05 125 MCG Phenylephrine HCl 250 ml @ 30 mls/hr Q8H20M IV 07/25/24 22:45 Hold Enteral Nutritional Formula 240 ml BIDBL PO 07/28/24 12:00 07/31/24 12:14 240 ML Metoprolol Tartrate 25 mg BID PO 07/28/24 11:00 07/31/24 12:09 25 MG Lidocaine HCl 1 applic Q8HP PRN TOP 07/28/24 17:00 07/30/24 14:41 1 APPLIC Amiodarone HCl 200 mg Q12HR PO 08/03/24 22:00 Amiodarone HCl 400 mg Q12HR PO 07/29/24 10:00 08/03/24 10:00 07/31/24 12:04 400 MG Pantoprazole Sodium 40 mg BID IV 07/29/24 22:00 07/31/24 12:04 40 MG Acetaminophen/ Hydrocodone Bitart 1 tab Q4HP PRN PO 07/30/24 11:00 07/31/24 03:23 1 TAB Hydralazine HCl 10 mg Q6HP PRN IV 07/31/24 00:45 07/31/24 03:24 10 MG Cefazolin Sodium/ Dextrose 50 ml @ 50 mls/hr Q8HR IV 07/31/24 06:00 07/31/24 15:08 50 MLS/HR Examination: GENERAL:Normal, HEENT:Normal, NECK:Normal, LUNGS:Normal, CVS:Normal, ABDOMEN:Normal, MSK:Normal, SKIN:Normal, NEURO:Normal laboratory and microbiology Laboratory Tests 07/31/24 06:22 07/30/24 05:00 Test 07/30/24 05:00 Range/Units Serum Glucose 93 74-106 mg/dL Problem List/Assessment/Plan Problem List/Assessment/Plan Atrial fibrillation with RVR. Heart failure with preserved ejection fraction, NYHA a I-II. Hypotension. Dehydration. Rectal pain. Anemia likely secondary to rectal bleeding Thrombocytopenia. CHF. Rectal Cancer on chemo. Lower GIB. Sepsis Assessment/Plan Continued all current supportive medical care. Patient has been seen by Roselia Baez, resident on my behalf. We have discussed the plan with the patient. Patient completed transesophageal echocardiogram, no vegetations no thrombus noted. Echocardiogram shows moderately dilated RV and RA. Dyskinesis of interventricular septum. RV failure. EF 60% and hyperdynamic. IV Amiodarone. IV Metoprolol. Morphine and [place] for pain management. IV antibiotics as ordered. Digoxin. DVT prophylactics. Nitro SL. Additional plan as per the hospital course. Plan discussed with: Patient Dietary Evaluation Review Recommendations by RD: Protein Supplementation Comments: 1) Initiate Ensure Enlive bid 2) Encourage optimal PO intake 3) Follow-up with gastroenterology, oncology, and cardiology 4) Continue to monitor I&O, labs, and skin integrity Expected Outcomes/Goals: 1) appetite and labs to improve 2) GI symptoms to resolve 3) f/u in 3-5 days Date of Service: Jul 31, 2024 Billing Provider: JT ANGELES MD Cardiology Common Codes: [id number] INP/OBS CARE (High) JT ANGELES MD Jul 31, 2024 15:34
[2024-08-01] VITALS (8 sets, daily range): BP systolic 126–145; BP diastolic 80–107; PULSE 88–110; RESP 18–19; TEMP 97.2–97.9; O2SAT 96–100
[2024-08-01 06:41] LABS: Hemoglobin 7.9 g/dL (13.5-17.5); Mean Corpuscular Hgb Conc. 34.3 g/dL (32.0-36.0); White Blood Cell 2.9 10^3/uL (4.4-10.8)
[2024-08-01 06:44] LABS: Mean Corpuscular Hemoglobin 27.2 pg (28.0-32.0); Mean Corpuscular Volume 79.3 fL (80.0-100.0); Platelet Count (auto) 212 10^3/uL (140-450); Red Cell Distribution Width 14.5 % (11.8-14.3)
[2024-08-01 06:48] LABS: Basophils % (manual) 0 (0.0-2.0); Blast Cells 0; Eosinophils % (manual) 0 (0-7); Metamyelocytes % 0; Myelocytes % 0; Promyelocytes % 0; Reactive Lymphocytes 0
[2024-08-01 06:52] LABS: Anion Gap 10 (5-15); Calcium 8.7 mg/dL (8.7-10.4); Carbon Dioxide 22 mmol/L (20-31); Chloride 106 mmol/L (98-107); Potassium 3.9 mmol/L (3.5-5.1); Sodium 138 mmol/L (136-145)
[2024-08-01 06:58] LABS: BUN/Creatinine Ratio 25.6 (10.0-20.0); Blood Urea Nitrogen 20 mg/dL (9-23); Glucose 84 mg/dL (74-106)
--- NOTE | 2024-08-01 07:08 | DVHDS2 ---
New Physician D'charge PN Admitting Diagnosis Admitting Diagnosis afib rvr Discharge Diagnosis MSSA bacteremia afib rvr, no rate controlled rectal cancer Operations or Procedures none Reason(s) For Hospitalization Surgery Hospital Course 79 M who was admitted for afib RVR and started onb amiodarone gtt. He was seen by cardiology and echo showed dilated RA/RV with EF 60%. Eventually the amio gtt was discontinued and patient was transitioned to PO Amio and PO BB. He has a hx of rectal cancer s/p chemo and follows with oncology outpt. There was a concern for rectal bleeding and GI was consulted whom recommended conservative mgmt at this time. His Hgb has been stable around 8. His BCx also grew MSSA with repeat BCx showing clearance, He underwent SIMONE which showed no vegetations. ID saw him and recommended IV anceg 2g q8h x 6 weeks at SNF. Patient already as chemo port this we will access that for IV Abx administration and patient to discharge to SNF with IV Ancef 2 g IV q8h x 6 weeks as recommended by ID for MSSA bacteremia. [facility] to arrange for SNF bed and transport. Treatment Plan Discharge Condition of Discharge Good Disposition Nursing Home Facility Discharge Instructions Diet: Cardiac 2g Na,low cholest Activity: No Restrictions, As Tolerated Medications: see med sheet Follow Up Care Follow Up/Referral: pcp cardio oncology Discharge Statement: "Patient was advised to return to the ER or call 911 if any headaches, dizziness, shortness of breath, chest pain, abdominal pain, bleeding, fevers, or worsening of medical condition. Patient was counseled about treatment plan, medications, possible side effects, patientverbalized understanding. All questions were answered to the best of my ability. This discharge took greater then 30 minutes in planning, reviewing documentation, counseling the patient, and discussing with other team members." BRISA PETERSON MD Aug 01, 2024 07:08
--- NOTE | 2024-08-01 07:36 | DVHOP ---
DATE OF SURGERY: 07/31/2024 TECHNIQUE PERFORMED: Transesophageal echocardiography, bubble study. ASSISTANTS: Assisted by the nurse; * Jadyn. BENDING MACHINE SET UP OPERATOR: [place]. INDICATIONS: Rule out any vegetation or thrombus. DESCRIPTION OF PROCEDURE: Risks and benefits discussed. Brought to microbiology lab technician. The patient was given lidocaine viscous, IV Versed and fentanyl was given in a standard manner was passed very smoothly. We opened left ventricle, right ventricle, left and right atria, mitral, tricuspid, pulmonary aortic valve evaluated, atrial appendage evaluated and carotid Doppler study was done. Study completed after evaluating also the atrial appendage. IMPRESSION: * Ejection fraction of left ventricle is in the range of 55%, within normal. * Moderate size right ventricle. * Moderate size left and right atria. * Normal mitral, tricuspid, pulmonary, aortic valve calcified and atrial appendage is also normal. * Bubble studies are negative. CONCLUSION: * No mass. No thrombus. No vegetation. * Atrial appendage is normal. * Ejection fraction 55%. * Moderately calcified aortic valve. Clarissa Michele MD MP/DAT/ASHA TID: [id number] RECEIPT: [id number]
[2024-08-01] MEDS ORDERED: MET25T PO (07:59)
[2024-08-01 08:11] LABS: Band Neutrophils % (manual) 1; Lymphocytes % (manual) 12 (10.0-50.0); Monocytes % (manual) 12 (0-12); Platelet Estimate Adequate
--- NOTE | 2024-08-01 10:57 | DVHPN2 ---
Progress Note Date Seen: Aug 01, 2024 Resident Creating Document: CARMELA RING RESIDENT Medical Necessity Reason Pt with a Central, PICC or Fol: No Subjective Review of Systems Patient was seen today at bedside No bowel movement today morning so far H&H stable Patient is being followed by Cardiology Objective vital signs Vital Sign Date Time Temp Pulse Resp B/P (MAP) Pulse Ox O2 Delivery O2 Flow Rate FiO2 08/01/24 10:08 101 144/87 08/01/24 09:35 97.7 18 100 97.7 08/01/24 08:10 Room Air* 0 21 Total Intake and Output 07/31/24 07/31/24 08/01/24 15:00 23:00 07:00 Intake Total 50 ml 460 ml 350 ml Output Total 400 ml 500 ml Balance 50 ml 60 ml -150 ml medications Current Medications Medications Dose Ordered Sig/Vincent Route Start Time Stop Time Status Last Admin Dose Admin Acetaminophen 325 mg Q4HP PRN PO 07/25/24 17:30 Temazepam 15 mg QHSP PRN PO 07/25/24 17:30 07/27/24 21:14 15 MG Nitroglycerin 0.4 mg Q5MINP PRN SL 07/25/24 17:30 Morphine Sulfate 2 mg Q30M PRN IV 07/25/24 17:30 Digoxin 125 mcg DAILY IV 07/26/24 07:00 08/01/24 10:07 125 MCG Phenylephrine HCl 250 ml @ 30 mls/hr Q8H20M IV 07/25/24 22:45 Hold Enteral Nutritional Formula 240 ml BIDBL PO 07/28/24 12:00 08/01/24 08:10 240 ML Metoprolol Tartrate 25 mg BID PO 07/28/24 11:00 08/01/24 10:08 25 MG Lidocaine HCl 1 applic Q8HP PRN TOP 07/28/24 17:00 07/30/24 14:41 1 APPLIC Amiodarone HCl 200 mg Q12HR PO 08/03/24 22:00 Amiodarone HCl 400 mg Q12HR PO 07/29/24 10:00 08/03/24 10:00 08/01/24 10:07 400 MG Pantoprazole Sodium 40 mg BID IV 07/29/24 22:00 08/01/24 10:07 40 MG Acetaminophen/ Hydrocodone Bitart 1 tab Q4HP PRN PO 07/30/24 11:00 08/01/24 04:42 1 TAB Hydralazine HCl 10 mg Q6HP PRN IV 07/31/24 00:45 07/31/24 03:24 10 MG Cefazolin Sodium/ Dextrose 50 ml @ 50 mls/hr Q8HR IV 07/31/24 06:00 08/01/24 04:43 50 MLS/HR laboratory and microbiology Laboratory Tests 08/01/24 05:27 Test 08/01/24 05:27 Range/Units Serum Glucose 84 74-106 mg/dL Microbiology Date/Time Source Procedure Growth Status 07/29/24 10:35 Blood Blood Culture - Preliminary NO GROWTH AFTER 72 HOURS OF INCUBATION. Resulted 07/28/24 16:39 Urine - [place] Urine Culture - Final Complete 07/26/24 18:12 Nose MRSA Screen - Final Complete Problem List/Assessment/Plan Problem List/Assessment/Plan Assessment and (1) Atrial fibrillation with RVR (2) Rectal cancer (3) Dehydration (4) Rectal pain (5) Anemia (6)Leukopenia EVENTS No bowel movement today morning so far H&H stable Patient is being followed by Cardiology H&H stable WBC today 2.9 Prognosis Plan Patient can be discharged and follow up with a [facility] for further care of the anorectal carcinoma once AFib with a RVR is well controlled, and H&H stable Monitor CBC Plan is to do blood transfusion if hemoglobin< 7 We will continue monitoring for rectal bleeding Monitor CBC Lovenox on hold due to GI bleeding Patient on cardiac regular diet Continue liquid anorectal care and sacral care Continue recommendations as per Cardiology We will continue conservative management from GI point of view Once the patient is medically stabilized follow up with Dr. Dorinda Baron with [facility] who have been following him over the last three years and arrange and evaluate for possible upcoming surgery PUD prophylaxis: Pantoprazole DVT prophylaxis: SCD Plan discussed with Dr. Dorinda Baron , nursing staff, Total time spent on patient evaluation, chart review, assessment and plan, discussion discussion >35 minutes Plan discussed with: Patient, Other (RN) Dietary Evaluation Review Recommendations by RD: Protein Supplementation Comments: 1) Initiate Ensure Enlive bid 2) Encourage optimal PO intake 3) Follow-up with gastroenterology, oncology, and cardiology 4) Continue to monitor I&O, labs, and skin integrity Expected Outcomes/Goals: 1) appetite and labs to improve 2) GI symptoms to resolve 3) f/u in 3-5 days CARMELA RING RESIDENT Aug 01, 2024 10:57
--- NOTE | 2024-08-01 12:45 | DVHPNRES ---
Progress Note Date Seen: Aug 01, 2024 Resident Creating Document: GLORIA BRODY RESIDENT Medical Necessity Reason Pt with a Central, PICC or Fol: No Subjective Review of Systems Denies any watery diarrhea today. Rest of the review of systems negative. AAO x3. Objective vital signs Vital Sign Date Time Temp Pulse Resp B/P (MAP) Pulse Ox O2 Delivery O2 Flow Rate FiO2 08/01/24 11:08 94 133/78 08/01/24 09:35 97.7 18 100 97.7 08/01/24 08:10 Room Air* 0 21 Total Intake and Output 07/31/24 07/31/24 08/01/24 15:00 23:00 07:00 Intake Total 50 ml 460 ml 350 ml Output Total 400 ml 500 ml Balance 50 ml 60 ml -150 ml medications Current Medications Medications Dose Ordered Sig/Vincent Route Start Time Stop Time Status Last Admin Dose Admin Acetaminophen 325 mg Q4HP PRN PO 07/25/24 17:30 Temazepam 15 mg QHSP PRN PO 07/25/24 17:30 07/27/24 21:14 15 MG Nitroglycerin 0.4 mg Q5MINP PRN SL 07/25/24 17:30 Morphine Sulfate 2 mg Q30M PRN IV 07/25/24 17:30 Digoxin 125 mcg DAILY IV 07/26/24 07:00 08/01/24 10:07 125 MCG Phenylephrine HCl 250 ml @ 30 mls/hr Q8H20M IV 07/25/24 22:45 Hold Enteral Nutritional Formula 240 ml BIDBL PO 07/28/24 12:00 08/01/24 08:10 240 ML Metoprolol Tartrate 25 mg BID PO 07/28/24 11:00 08/01/24 10:08 25 MG Lidocaine HCl 1 applic Q8HP PRN TOP 07/28/24 17:00 07/30/24 14:41 1 APPLIC Amiodarone HCl 200 mg Q12HR PO 08/03/24 22:00 Amiodarone HCl 400 mg Q12HR PO 07/29/24 10:00 08/03/24 10:00 08/01/24 10:07 400 MG Pantoprazole Sodium 40 mg BID IV 07/29/24 22:00 08/01/24 10:07 40 MG Acetaminophen/ Hydrocodone Bitart 1 tab Q4HP PRN PO 07/30/24 11:00 08/01/24 04:42 1 TAB Hydralazine HCl 10 mg Q6HP PRN IV 07/31/24 00:45 07/31/24 03:24 10 MG Cefazolin Sodium/ Dextrose 50 ml @ 50 mls/hr Q8HR IV 07/31/24 06:00 08/01/24 04:43 50 MLS/HR Examination GENERAL: Alert and oriented x 3. No acute distress. Dry Mucous membranes EYES: PERRL, EOMI. Anicteric. HENT: Moist mucous membranes. LUNGS: Clear to auscultation bilaterally. CARDIOVASCULAR: Regular rate and rhythm. ABDOMEN: Soft, nontender and nondistended. EXTREMITIES: No edema. NEUROLOGIC: No focal neurological deficits. SKIN: Warm, dry. laboratory and microbiology Laboratory Tests 08/01/24 05:27 Test 08/01/24 05:27 Range/Units Serum Glucose 84 74-106 mg/dL Microbiology Date/Time Source Procedure Growth Status 07/29/24 10:35 Blood Blood Culture - Preliminary NO GROWTH AFTER 72 HOURS OF INCUBATION. Resulted 07/28/24 16:39 Urine - [place] Urine Culture - Final Complete 07/26/24 18:12 Nose MRSA Screen - Final Complete Labs and/or images reviewed: Labs reviewed by me, Image(s) reviewed by me Problem List/Assessment/Plan Problem List/Assessment/Plan Atrial fibrillation with RVR. Heart failure with preserved ejection fraction, NYHA a I-II Hypotension. Dehydration. Rectal pain. Anemia likely secondary to rectal bleeding Thrombocytopenia. CHF. Rectal Cancer on chemo. Lower GIB. Sepsis Assessment/Plan Continued all current supportive medical care. Patient completed transesophageal echocardiogram, no vegetations no thrombus noted Echocardiogram shows moderately dilated RV and RA. Dyskinesis of interventricular septum. RV failure. EF 60% and hyperdynamic. IV Amiodarone. IV Metoprolol. Morphine and [place] for pain management. IV antibiotics as ordered. Digoxin. DVT prophylactics. Nitro SL. Additional plan as per the hospital course. Thank you so much for the opportunity to consult on your patient. Cardiology team will follow the patient. In case of any questions or concerns please feel free to reach out. Plan discussed with Dr. Michele Plan discussed with: Patient, Other (RN) My Orders My Orders Orders - GLORIA BRODY RESIDENT Procedure Category Date Status Time * Swallow Request ST 07/31/24 Transmitted 15:04 Dietary Evaluation Review Recommendations by RD: Protein Supplementation Comments: 1) Initiate Ensure Enlive bid 2) Encourage optimal PO intake 3) Follow-up with gastroenterology, oncology, and cardiology 4) Continue to monitor I&O, labs, and skin integrity Expected Outcomes/Goals: 1) appetite and labs to improve 2) GI symptoms to resolve 3) f/u in 3-5 days Visit Coding Cardiology RES Date of Service: Aug 01, 2024 Billing Provider: JT MICHELE MD Cardiology Common Codes: [id number] HOSP CARE(GLORIA Cornejo RESIDENT Aug 01, 2024 12:45
--- NOTE | 2024-08-01 23:10 | DVHPN2 ---
Consult Progress Note Date Seen: Aug 01, 2024 Subjective Other Systems: Patient was seen and evaluated in follow-up. Patient denies any watery diarrhea today. HGB 7.9, HCT 23. Patient is cardiac stable for discharge. Telemetry reviewed. Objective vital signs Vital Sign Date Time Temp Pulse Resp B/P (MAP) Pulse Ox O2 Delivery O2 Flow Rate FiO2 08/01/24 13:38 97.6 93 19 99 08/01/24 13:00 126/80 (95) 08/01/24 08:10 Room Air* 0 21 Total Intake and Output 07/31/24 07/31/24 08/01/24 15:00 23:00 07:00 Intake Total 50 ml 460 ml 350 ml Output Total 400 ml 500 ml Balance 50 ml 60 ml -150 ml medications Current Medications Medications Dose Ordered Sig/Vincent Route Start Time Stop Time Status Last Admin Dose Admin Acetaminophen 325 mg Q4HP PRN PO 07/25/24 17:30 Temazepam 15 mg QHSP PRN PO 07/25/24 17:30 07/27/24 21:14 15 MG Nitroglycerin 0.4 mg Q5MINP PRN SL 07/25/24 17:30 Morphine Sulfate 2 mg Q30M PRN IV 07/25/24 17:30 Digoxin 125 mcg DAILY IV 07/26/24 07:00 08/01/24 10:07 125 MCG Phenylephrine HCl 250 ml @ 30 mls/hr Q8H20M IV 07/25/24 22:45 Hold Enteral Nutritional Formula 240 ml BIDBL PO 07/28/24 12:00 08/01/24 08:10 240 ML Metoprolol Tartrate 25 mg BID PO 07/28/24 11:00 08/01/24 10:08 25 MG Lidocaine HCl 1 applic Q8HP PRN TOP 07/28/24 17:00 07/30/24 14:41 1 APPLIC Amiodarone HCl 200 mg Q12HR PO 08/03/24 22:00 Amiodarone HCl 400 mg Q12HR PO 07/29/24 10:00 08/03/24 10:00 08/01/24 10:07 400 MG Pantoprazole Sodium 40 mg BID IV 07/29/24 22:00 08/01/24 10:07 40 MG Acetaminophen/ Hydrocodone Bitart 1 tab Q4HP PRN PO 07/30/24 11:00 08/01/24 04:42 1 TAB Hydralazine HCl 10 mg Q6HP PRN IV 07/31/24 00:45 07/31/24 03:24 10 MG Cefazolin Sodium/ Dextrose 50 ml @ 50 mls/hr Q8HR IV 07/31/24 06:00 08/01/24 04:43 50 MLS/HR Examination: GENERAL:Normal, HEENT:Normal, NECK:Normal, LUNGS:Normal, CVS:Normal, ABDOMEN:Normal, MSK:Normal, SKIN:Normal laboratory and microbiology Laboratory Tests 08/01/24 05:27 Test 08/01/24 05:27 Range/Units Serum Glucose 84 74-106 mg/dL Problem List/Assessment/Plan Problem List/Assessment/Plan Problem List Atrial fibrillation with RVR. Heart failure with preserved ejection fraction, NYHA a I-II Hypotension. Dehydration. Rectal pain. Anemia likely secondary to rectal bleeding Thrombocytopenia. CHF. Rectal Cancer on chemo. Lower GIB. Sepsis. Assessment/Plan Continued all current supportive medical care. Patient has been seen by Roselia Baez, resident on my behalf. We have discussed the plan with the patient. Patient completed transesophageal echocardiogram, no vegetations no thrombus noted Echocardiogram shows moderately dilated RV and RA. Dyskinesis of interventricular septum. RV failure. EF 60% and hyperdynamic. Amiodarone. Metoprolol. Morphine and [place] for pain management. IV antibiotics as ordered. Digoxin. DVT prophylactics. Nitro SL. Additional plan as per the hospital course. Plan discussed with: Patient Dietary Evaluation Review Recommendations by RD: Protein Supplementation Comments: 1) Initiate Ensure Enlive bid 2) Encourage optimal PO intake 3) Follow-up with gastroenterology, oncology, and cardiology 4) Continue to monitor I&O, labs, and skin integrity Expected Outcomes/Goals: 1) appetite and labs to improve 2) GI symptoms to resolve 3) f/u in 3-5 days Date of Service: Aug 01, 2024 Billing Provider: JT ANGELES MD Cardiology Common Codes: [id number] INP/OBS CARE (High) JT ANGELES MD Aug 01, 2024 14:16
--- NOTE | 2024-08-03 15:30 | DVHPN2 ---
Consult Progress Note Date Seen: Aug 01, 2024 Subjective Patient reports: Other (underwent SIMONE and has a little bit of a sore throat after procedure , has some delirium ) Objective vital signs Vital Sign Date Time Temp Pulse Resp B/P (MAP) Pulse Ox O2 Delivery O2 Flow Rate FiO2 08/01/24 16:53 97.5 88 19 129/80 (96) 96 97.5 08/01/24 08:10 Room Air* 0 21 medications Physical Exam: General: NAD Neck: Supple. No masses. HEENT: PERRL. Normal lids and conjunctiva. Moist mucous membranes. Oropharynx without lesions, exudates or excessive erythema. Normal appearance of the external aspects of the nose and ears. Heart: Irregularly irregular rhythm, tachycardic. No murmur. No lower extremity edema. Lungs: Normal respiratory effort. Clear to auscultation bilaterally. No wheezes. No crackles. Abdomen: Soft. Non-tender. Non-distended. Hyperactive bowel sounds. No masses or abdominal hernia. Msk: No digital cyanosis. Normal strength and tone in all 4 limbs. Skin: Warm and dry, no rashes. Neuro: Alert. No facial droop or slurred speech. Extra-ocular movements intact. Sensation intact to soft touch in all 4 limbs. Psych: Appropriate mood. Full affect. Oriented to person, place, time, and situation. laboratory and microbiology Laboratory Tests 08/01/24 05:27 Test 08/01/24 05:27 Range/Units Serum Glucose 84 74-106 mg/dL Problem List/Assessment/Plan Problems(with codes): (1) Atrial fibrillation with RVR (2) Sepsis due to urinary tract infection (3) MSSA bacteremia (4) Intractable abdominal pain (5) Rectal cancer (6) Hypotension (7) Dehydration Problem List/Assessment/Plan ASSESSMENT AND PLAN: ID Problem List: - Metastatic rectal cancer (with hepatic metastases) - Sepsis, bacteremia (MSSA) - Neutropenia - Anemia, thrombocytopenia - Atrial fibrillation with rapid ventricular response (RVR) - Congestive heart failure - Poor oral intake, dehydration - Rectal pain - Urinary retention, constipation Assessment: This is a male patient with a history of metastatic rectal cancer (with hepatic metastases) admitted for generalized weakness, rectal pain, and poor oral intake. He was found to be in atrial fibrillation with rapid ventricular response (heart rate ~170s), hypotensive to the 80s on arrival, and in lactic acidosis. Laboratory studies notable for white blood cell count 4.2, hemoglobin 9.5, and worsening neutropenia (lowest 1.8), with thrombocytopenia (platelet gunner 128K). Imaging of the abdomen/pelvis notable for irregular thickening of the rectal wall (1011 mm), multiple compressed lumbar vertebrae, multiple bilateral renal cysts, and hepatic metastases. Recent echocardiogram showed moderately dilated right ventricle and right ventricular dyskinesis, EF 60%, no vegetations, and grossly normal valves. Blood cultures positive for MSSA in multiple sets (initially 2/4, then up to 3/4, then 1/4), concerning for ongoing bacteremia. No clear source of infection identified. Currently on vancomycin and ceftriaxone. Also on recent chemotherapy. Patient has ongoing poor oral intake, is weak, has persistent rectal pain, and is experiencing urinary retention and constipation. 07/28: no clear source at this time for infection but suspect is likely related to port cath given persistent staph aureus growth in the blood cultures which are now positive in 2/4 bottles. 07/29: patient continues to have no overt signs of infection . leukopenia is getting worse with whilecount hat 2.0 . the blood cultures from 07/28 are positive in 1/4 bottles and decreasing bacterial burden with ongoing therapy 07/30: no signs of neutropenic fever or typhlitis despite being neutropenic 07/31:blood cultures are negative for 24 hours , awaiting SIMONE . whitecount is improving to 2.9 08/01: SIMONE was done and shows no signs of masses or vegetations . Bubble studies are negative as well , EF of 55% . there is moderately calcified aortic valve Plan: - blood cultures remain negative for 48 hours , no need to remove port at this time however would hold off on addition chemotherapy given ongoing leukopenia and concern that the port may be an ongoing source of infection . rather would have patient complete a 6 week coarse of Ancef and the repeat surveillance cultures after 1 week after antibiotics have been completed . If patient is infection free and leukopenia has resolved at this time then may resume leukopenia . convey this to hematology oncology team in the outpatient - follow up with patient in 4 weeks to determine if additional antibiotics are needed and to help transition patient off antibiotics and back on to chemotherapy to complete his treatment for cancer - Ancef will be dosed at 8 grams every 24 hours continuously via piccline - likely neutropenia is related either chemotherapy or ongoing bacteremia - defer to primary team on whether hematology oncology should be involved to help assist with management of low whitecount - repeat blood cultures today - continue Ancef for a more targeted approach for the bacteremia - patient will require a SIMONE to fully rule out endocarditis as there is no clear infection source at this time - repeat blood cultures until cultures have cleared - may need to consider a port line removal if staph aureus bacteremia persists in the coming days but can hold off for now - Daily repeat blood cultures until negative - Continue to monitor for source of infection; consider imaging if not already performed - Continue close monitoring of neutropenia; if neutropenia worsens or seizures occur, consider hematology/oncology consultation - Continue amiodarone and diltiazem drips for rate control of atrial fibrillation; defer further management to cardiology team - Monitor for cardiac complications; recent echocardiogram reassuring with no vegetations or effusions - Monitor volume status and provide supportive care for dehydration and poor oral intake - Symptomatic management of rectal pain, urinary retention, and constipation - If liver lesions are persistently symptomatic or if there are clinical concerns, may consider MRI for further evaluation of hepatic metastases and rule out embolic phenomena - Multidisciplinary care ongoing (oncology, cardiology, ID) - Continue current home medications as appropriate (iron, amiodarone, apixaban, lisinopril, atenolol, digoxin) Isolation Precautions: Not specified Plan discussed with: Other Dietary Evaluation Review Recommendations by RD: Protein Supplementation Comments: 1) Initiate Ensure Enlive bid 2) Encourage optimal PO intake 3) Follow-up with gastroenterology, oncology, and cardiology 4) Continue to monitor I&O, labs, and skin integrity Expected Outcomes/Goals: 1) appetite and labs to improve 2) GI symptoms to resolve 3) f/u in 3-5 days VESTA HEMPHILL MD Aug 03, 2024 15:30
--- NOTE | 2024-08-03 15:30 | DVHPN2 ---
Consult Progress Note Date Seen: Jul 29, 2024 Subjective Patient reports: Other (patient is more alert and awake . denies any joint pain and no back pain . patient is afebrile with no chills , no open mouth ulcers or skin wounds ) Objective vital signs Vital Sign Date Time Temp Pulse Resp B/P (MAP) Pulse Ox O2 Delivery O2 Flow Rate FiO2 08/01/24 16:53 97.5 88 19 129/80 (96) 96 97.5 08/01/24 08:10 Room Air* 0 21 medications Physical Exam: General: NAD Neck: Supple. No masses. HEENT: PERRL. Normal lids and conjunctiva. Moist mucous membranes. Oropharynx without lesions, exudates or excessive erythema. Normal appearance of the external aspects of the nose and ears. Heart: Irregularly irregular rhythm, tachycardic. No murmur. No lower extremity edema. Lungs: Normal respiratory effort. Clear to auscultation bilaterally. No wheezes. No crackles. Abdomen: Soft. Non-tender. Non-distended. Hyperactive bowel sounds. No masses or abdominal hernia. Msk: No digital cyanosis. Normal strength and tone in all 4 limbs. Skin: Warm and dry, no rashes. Neuro: Alert. No facial droop or slurred speech. Extra-ocular movements intact. Sensation intact to soft touch in all 4 limbs. Psych: Appropriate mood. Full affect. Oriented to person, place, time, and situation. laboratory and microbiology Laboratory Tests 08/01/24 05:27 Test 08/01/24 05:27 Range/Units Serum Glucose 84 74-106 mg/dL Problem List/Assessment/Plan Problems(with codes): (1) Sepsis due to urinary tract infection (2) MSSA bacteremia (3) Intractable abdominal pain (4) Atrial fibrillation with RVR (5) Rectal cancer (6) Hypotension (7) Dehydration Problem List/Assessment/Plan ASSESSMENT AND PLAN: ID Problem List: - Metastatic rectal cancer (with hepatic metastases) - Sepsis, bacteremia (MSSA) - Neutropenia - Anemia, thrombocytopenia - Atrial fibrillation with rapid ventricular response (RVR) - Congestive heart failure - Poor oral intake, dehydration - Rectal pain - Urinary retention, constipation Assessment: This is a male patient with a history of metastatic rectal cancer (with hepatic metastases) admitted for generalized weakness, rectal pain, and poor oral intake. He was found to be in atrial fibrillation with rapid ventricular response (heart rate ~170s), hypotensive to the 80s on arrival, and in lactic acidosis. Laboratory studies notable for white blood cell count 4.2, hemoglobin 9.5, and worsening neutropenia (lowest 1.8), with thrombocytopenia (platelet gunner 128K). Imaging of the abdomen/pelvis notable for irregular thickening of the rectal wall (1011 mm), multiple compressed lumbar vertebrae, multiple bilateral renal cysts, and hepatic metastases. Recent echocardiogram showed moderately dilated right ventricle and right ventricular dyskinesis, EF 60%, no vegetations, and grossly normal valves. Blood cultures positive for MSSA in multiple sets (initially 2/4, then up to 3/4, then 1/4), concerning for ongoing bacteremia. No clear source of infection identified. Currently on vancomycin and ceftriaxone. Also on recent chemotherapy. Patient has ongoing poor oral intake, is weak, has persistent rectal pain, and is experiencing urinary retention and constipation. 07/28: no clear source at this time for infection but suspect is likely related to port cath given persistent staph aureus growth in the blood cultures which are now positive in 2/4 bottles. 07/29: patient continues to have no overt signs of infection . leukopenia is getting worse with whilecount hat 2.0 . blood cultures from 07/28 are positive in 1/4 bottles and decreasing bacterial burden with ongoing therapy Plan: - patient will switch to meropenem for staph aureus and would switch to Ancef for a more targeted approach for the bacteremia - Discontinue Vancomycin as it had been difficult to achieve therapeutic levels - patient will require a SIMONE to fully rule out endocarditis as there is no clear infection source at this time - repeat blood cultures until cultures have cleared - may need to consider a port line removal if staph aureus bacteremia persists in the coming days but can hold off for now - Daily repeat blood cultures until negative - Continue to monitor for source of infection; consider imaging if not already performed - Continue close monitoring of neutropenia; if neutropenia worsens or seizures occur, consider hematology/oncology consultation - Continue amiodarone and diltiazem drips for rate control of atrial fibrillation; defer further management to cardiology team - Monitor for cardiac complications; recent echocardiogram reassuring with no vegetations or effusions - Monitor volume status and provide supportive care for dehydration and poor oral intake - Symptomatic management of rectal pain, urinary retention, and constipation - If liver lesions are persistently symptomatic or if there are clinical concerns, may consider MRI for further evaluation of hepatic metastases and rule out embolic phenomena - Multidisciplinary care ongoing (oncology, cardiology, ID) - Continue current home medications as appropriate (iron, amiodarone, apixaban, lisinopril, atenolol, digoxin) Isolation Precautions: Not specified Plan discussed with: Other Dietary Evaluation Review Recommendations by RD: Protein Supplementation Comments: 1) Initiate Ensure Enlive bid 2) Encourage optimal PO intake 3) Follow-up with gastroenterology, oncology, and cardiology 4) Continue to monitor I&O, labs, and skin integrity Expected Outcomes/Goals: 1) appetite and labs to improve 2) GI symptoms to resolve 3) f/u in 3-5 days VESTA HEMPHILL MD Aug 03, 2024 15:29
--- NOTE | 2024-08-03 15:30 | DVHPN2 ---
Consult Progress Note Date Seen: Jul 31, 2024 Subjective Patient reports: Other (blood cultures are no growth to date for 24 hours , antibiotics are being transfused throught the port cath without any intolerance ) Objective vital signs Vital Sign Date Time Temp Pulse Resp B/P (MAP) Pulse Ox O2 Delivery O2 Flow Rate FiO2 08/01/24 16:53 97.5 88 19 129/80 (96) 96 97.5 08/01/24 08:10 Room Air* 0 21 medications Physical Exam: General: NAD Neck: Supple. No masses. HEENT: PERRL. Normal lids and conjunctiva. Moist mucous membranes. Oropharynx without lesions, exudates or excessive erythema. Normal appearance of the external aspects of the nose and ears. Heart: Irregularly irregular rhythm, tachycardic. No murmur. No lower extremity edema. Lungs: Normal respiratory effort. Clear to auscultation bilaterally. No wheezes. No crackles. Abdomen: Soft. Non-tender. Non-distended. Hyperactive bowel sounds. No masses or abdominal hernia. Msk: No digital cyanosis. Normal strength and tone in all 4 limbs. Skin: Warm and dry, no rashes. Neuro: Alert. No facial droop or slurred speech. Extra-ocular movements intact. Sensation intact to soft touch in all 4 limbs. Psych: Appropriate mood. Full affect. Oriented to person, place, time, and situation. laboratory and microbiology Laboratory Tests 08/01/24 05:27 Test 08/01/24 05:27 Range/Units Serum Glucose 84 74-106 mg/dL Problem List/Assessment/Plan Problems(with codes): (1) Dehydration (2) Rectal cancer (3) MSSA bacteremia (4) Sepsis due to urinary tract infection (5) Atrial fibrillation with RVR Problem List/Assessment/Plan ASSESSMENT AND PLAN: ID Problem List: - Metastatic rectal cancer (with hepatic metastases) - Sepsis, bacteremia (MSSA) - Neutropenia - Anemia, thrombocytopenia - Atrial fibrillation with rapid ventricular response (RVR) - Congestive heart failure - Poor oral intake, dehydration - Rectal pain - Urinary retention, constipation Assessment: This is a male patient with a history of metastatic rectal cancer (with hepatic metastases) admitted for generalized weakness, rectal pain, and poor oral intake. He was found to be in atrial fibrillation with rapid ventricular response (heart rate ~170s), hypotensive to the 80s on arrival, and in lactic acidosis. Laboratory studies notable for white blood cell count 4.2, hemoglobin 9.5, and worsening neutropenia (lowest 1.8), with thrombocytopenia (platelet gunner 128K). Imaging of the abdomen/pelvis notable for irregular thickening of the rectal wall (1011 mm), multiple compressed lumbar vertebrae, multiple bilateral renal cysts, and hepatic metastases. Recent echocardiogram showed moderately dilated right ventricle and right ventricular dyskinesis, EF 60%, no vegetations, and grossly normal valves. Blood cultures positive for MSSA in multiple sets (initially 2/4, then up to 3/4, then 1/4), concerning for ongoing bacteremia. No clear source of infection identified. Currently on vancomycin and ceftriaxone. Also on recent chemotherapy. Patient has ongoing poor oral intake, is weak, has persistent rectal pain, and is experiencing urinary retention and constipation. 07/28: no clear source at this time for infection but suspect is likely related to port cath given persistent staph aureus growth in the blood cultures which are now positive in 2/4 bottles. 07/29: patient continues to have no overt signs of infection . leukopenia is getting worse with whilecount hat 2.0 . the blood cultures from 07/28 are positive in 1/4 bottles and decreasing bacterial burden with ongoing therapy 07/30: no signs of neutropenic fever or typhlitis despite being neutropenic 07/31:blood cultures are negative for 24 hours , awaiting SIMONE . whitecount is improving to 2.9 Plan: - likely neutropenia is related either chemotherapy or ongoing bacteremia - defer to primary team on whether hematology oncology should be involved to help assist with management of low whitecount - repeat blood cultures today - continue Ancef for a more targeted approach for the bacteremia - patient will require a SIMONE to fully rule out endocarditis as there is no clear infection source at this time - repeat blood cultures until cultures have cleared - may need to consider a port line removal if staph aureus bacteremia persists in the coming days but can hold off for now - Daily repeat blood cultures until negative - Continue to monitor for source of infection; consider imaging if not already performed - Continue close monitoring of neutropenia; if neutropenia worsens or seizures occur, consider hematology/oncology consultation - Continue amiodarone and diltiazem drips for rate control of atrial fibrillation; defer further management to cardiology team - Monitor for cardiac complications; recent echocardiogram reassuring with no vegetations or effusions - Monitor volume status and provide supportive care for dehydration and poor oral intake - Symptomatic management of rectal pain, urinary retention, and constipation - If liver lesions are persistently symptomatic or if there are clinical concerns, may consider MRI for further evaluation of hepatic metastases and rule out embolic phenomena - Multidisciplinary care ongoing (oncology, cardiology, ID) - Continue current home medications as appropriate (iron, amiodarone, apixaban, lisinopril, atenolol, digoxin) Isolation Precautions: Not specified Plan discussed with: Other Dietary Evaluation Review Recommendations by RD: Protein Supplementation Comments: 1) Initiate Ensure Enlive bid 2) Encourage optimal PO intake 3) Follow-up with gastroenterology, oncology, and cardiology 4) Continue to monitor I&O, labs, and skin integrity Expected Outcomes/Goals: 1) appetite and labs to improve 2) GI symptoms to resolve 3) f/u in 3-5 days VESTA HEMPHILL MD Aug 03, 2024 15:30
--- NOTE | 2024-08-03 15:30 | DVHPN2 ---
Consult Progress Note Date Seen: Jul 30, 2024 Subjective Patient reports: Other (leukopenia continues to worsen . patient is having no diarrhea or abdominal pain ) Objective vital signs Vital Sign Date Time Temp Pulse Resp B/P (MAP) Pulse Ox O2 Delivery O2 Flow Rate FiO2 08/01/24 16:53 97.5 88 19 129/80 (96) 96 97.5 08/01/24 08:10 Room Air* 0 21 medications Physical Exam: General: NAD Neck: Supple. No masses. HEENT: PERRL. Normal lids and conjunctiva. Moist mucous membranes. Oropharynx without lesions, exudates or excessive erythema. Normal appearance of the external aspects of the nose and ears. Heart: Irregularly irregular rhythm, tachycardic. No murmur. No lower extremity edema. Lungs: Normal respiratory effort. Clear to auscultation bilaterally. No wheezes. No crackles. Abdomen: Soft. Non-tender. Non-distended. Hyperactive bowel sounds. No masses or abdominal hernia. Msk: No digital cyanosis. Normal strength and tone in all 4 limbs. Skin: Warm and dry, no rashes. Neuro: Alert. No facial droop or slurred speech. Extra-ocular movements intact. Sensation intact to soft touch in all 4 limbs. Psych: Appropriate mood. Full affect. Oriented to person, place, time, and situation. laboratory and microbiology Laboratory Tests 08/01/24 05:27 Test 08/01/24 05:27 Range/Units Serum Glucose 84 74-106 mg/dL Problem List/Assessment/Plan Problems(with codes): (1) Thrombocytopenia (2) Rectal pain (3) Rectal cancer (4) Sepsis due to urinary tract infection (5) MSSA bacteremia (6) Intractable abdominal pain (7) Atrial fibrillation with RVR Problem List/Assessment/Plan ASSESSMENT AND PLAN: ID Problem List: - Metastatic rectal cancer (with hepatic metastases) - Sepsis, bacteremia (MSSA) - Neutropenia - Anemia, thrombocytopenia - Atrial fibrillation with rapid ventricular response (RVR) - Congestive heart failure - Poor oral intake, dehydration - Rectal pain - Urinary retention, constipation Assessment: This is a male patient with a history of metastatic rectal cancer (with hepatic metastases) admitted for generalized weakness, rectal pain, and poor oral intake. He was found to be in atrial fibrillation with rapid ventricular response (heart rate ~170s), hypotensive to the 80s on arrival, and in lactic acidosis. Laboratory studies notable for white blood cell count 4.2, hemoglobin 9.5, and worsening neutropenia (lowest 1.8), with thrombocytopenia (platelet gunner 128K). Imaging of the abdomen/pelvis notable for irregular thickening of the rectal wall (1011 mm), multiple compressed lumbar vertebrae, multiple bilateral renal cysts, and hepatic metastases. Recent echocardiogram showed moderately dilated right ventricle and right ventricular dyskinesis, EF 60%, no vegetations, and grossly normal valves. Blood cultures positive for MSSA in multiple sets (initially 2/4, then up to 3/4, then 1/4), concerning for ongoing bacteremia. No clear source of infection identified. Currently on vancomycin and ceftriaxone. Also on recent chemotherapy. Patient has ongoing poor oral intake, is weak, has persistent rectal pain, and is experiencing urinary retention and constipation. 07/28: no clear source at this time for infection but suspect is likely related to port cath given persistent staph aureus growth in the blood cultures which are now positive in 2/4 bottles. 07/29: patient continues to have no overt signs of infection . leukopenia is getting worse with whilecount hat 2.0 . the blood cultures from 07/28 are positive in 1/4 bottles and decreasing bacterial burden with ongoing therapy 07/30: no signs of neutropenic fever or typhlitis despite being neutropenic Plan: - likely neutropenia is related either chemotherapy or ongoing bacteremia - defer to primary team on whether hematology oncology should be involved to help assist with management of low whitecount - repeat blood cultures today - continue Ancef for a more targeted approach for the bacteremia - patient will require a SIMONE to fully rule out endocarditis as there is no clear infection source at this time - repeat blood cultures until cultures have cleared - may need to consider a port line removal if staph aureus bacteremia persists in the coming days but can hold off for now - Daily repeat blood cultures until negative - Continue to monitor for source of infection; consider imaging if not already performed - Continue close monitoring of neutropenia; if neutropenia worsens or seizures occur, consider hematology/oncology consultation - Continue amiodarone and diltiazem drips for rate control of atrial fibrillation; defer further management to cardiology team - Monitor for cardiac complications; recent echocardiogram reassuring with no vegetations or effusions - Monitor volume status and provide supportive care for dehydration and poor oral intake - Symptomatic management of rectal pain, urinary retention, and constipation - If liver lesions are persistently symptomatic or if there are clinical concerns, may consider MRI for further evaluation of hepatic metastases and rule out embolic phenomena - Multidisciplinary care ongoing (oncology, cardiology, ID) - Continue current home medications as appropriate (iron, amiodarone, apixaban, lisinopril, atenolol, digoxin) Isolation Precautions: Not specified Plan discussed with: Other Dietary Evaluation Review Recommendations by RD: Protein Supplementation Comments: 1) Initiate Ensure Enlive bid 2) Encourage optimal PO intake 3) Follow-up with gastroenterology, oncology, and cardiology 4) Continue to monitor I&O, labs, and skin integrity Expected Outcomes/Goals: 1) appetite and labs to improve 2) GI symptoms to resolve 3) f/u in 3-5 days VESTA HEMPHILL MD Aug 03, 2024 15:30
[2024-08-03] MEDS ORDERED: AMIODARONE HCL 200 MG TAB PO SCH (22:00)
== END 2024-08-01 17:15 | DRG 871 ==
LOC: EDBD 14:24 → EDUNIT# 14:24 → ER 14:26 → OVERFLOW 17:26 → ICU CENTRL 07-26 18:14 → DOU IN ICU 07-27 04:10 → TELE-CENTR 07-30 14:36
PROVIDERS: ADMIT Student in an Organized Health Care Education/Training Program; ATTEND Student in an Organized Health Care Education/Training Program
PROC: B24BZZ4 Ultrasonography of Heart with Aorta, Transesophageal (ICD-10-PCS; principal; 2024-07-31)
DX: A41.01 Sepsis due to Methicillin susceptible Staphylococcus aureus (principal); I50.33 Acute on chronic diastolic (congestive) heart failure; E87.20 Acidosis, unspecified; C78.7 Secondary malignant neoplasm of liver and intrahepatic bile duct; C20 Malignant neoplasm of rectum; I50.30 Unspecified diastolic (congestive) heart failure; D69.6 Thrombocytopenia, unspecified; I11.0 Hypertensive heart disease with heart failure; D64.9 Anemia, unspecified; I35.8 Other nonrheumatic aortic valve disorders; D70.9 Neutropenia, unspecified; E86.0 Dehydration; I48.91 Unspecified atrial fibrillation; N28.1 Cyst of kidney, acquired; M25.551 Pain in right hip; K59.00 Constipation, unspecified; I95.9 Hypotension, unspecified; Z92.21 Personal history of antineoplastic chemotherapy; Z79.01 Long term (current) use of anticoagulants; Z51.11 Encounter for antineoplastic chemotherapy
CPT/HCPCS: 36415; 71045; 74176; 80048; 80053; 80162; 80202; 81001; 82565; 83605; 83690; 83735; 83880; 84484; 85007; 85014; 85018; 85025; 85027; 85610; 85730; 86850; 86900; 86901; 87040; 87077; 87081; 87086; 87147; 87186; 92610; 93005; 93306; 93312; 97110; 97163; 97530; 99152; G0378; J2185; J2250; J2470